=== PATIENT | male | born 1955 | race Caucasian/White ===

== ENCOUNTER → 2018-08-01 | Outpatient (CLI) | payer BC ==
[~2018-08-01] MED LIST: FLUT16SP22 NS; MICARDIS; MMT17NA NS; PRD20T PO
--- NOTE | 2018-08-01 14:51 | Diagnostic Imaging Report ---
CLINICAL INDICATION: Patient has trouble breathing and on right side has polyp. EXAM: Axial CT scan of the maxillofacial structures without IV contrast. Coronal reformations were performed. COMPARISON: None. FINDINGS: PARANASAL SINUSES: There is mild amorphous high-density material within the left maxillary sinus. FRONTAL: There is near-complete consolidation of the frontal sinus and obstruction of the frontal recess regions. ETHMOID: There is a large amount of patchy consolidation and mucosal thickening involving the ethmoid sinus (left side more than the right). MAXILLARY: There is consolidation of both maxillary sinuses. SPHENOID: There is near-complete consolidation of the sphenoid sinus. OTHER PARANASAL SINUS FINDINGS: There is a large amount of lobulated mucosal thickening and near-complete consolidation of the right nasal cavity. There is a large amount of lobulated mucosal thickening in the left nasal cavity. There is polypoid-like mucosal thickening seen in the nasal cavity bilaterally with a small polypoid area extending anteriorly within the right nostril. NASAL SEPTUM: There is mild rightward nasal septal deviation. VISUALIZED TEMPORAL BONE STRUCTURES: Unremarkable. BONY STRUCTURES: There is chronic bony thickening/sclerosis involving all of the paranasal sinus bony prabhakar. There are postop changes versus bony expansile changes of the bilateral medial maxillary wall regions. EXTRACRANIAL SOFT TISSUE/ ORBITS: Unremarkable. IMPRESSION: 1: There is severe diffuse paranasal sinus disease with consolidation and polypoid-like mucosal thickening. There is high-density material within the left maxillary sinus, which may be related to inspissated secretions or fungal elements. These findings may be related to sinonasal polyposis. 2: There is mild rightward nasal septal deviation. Dictated by: Dictated on workstation # [id number]
== END ==
LOC: RAD 14:11
PROVIDERS: ATTEND Otolaryngology Otolaryngology/Facial Plastic Surgery
DX: J33.9 Nasal polyp, unspecified (principal); J32.9 Chronic sinusitis, unspecified; J34.2 Deviated nasal septum
CPT/HCPCS: 70486

== ENCOUNTER 2018-08-18 06:39 | Outpatient (CLI) | payer BC ==
[~2018-08-18] VITALS: Ht 175.3 cm; Wt 90.3 kg
[2018-08-18] MEDS ORDERED: LOSA100T57 PO (14:20)
== END 2018-08-18 14:22 | disposition home or self-care (01) ==
LOC: PREOP 06:39
PROVIDERS: ATTEND Otolaryngology Otolaryngology/Facial Plastic Surgery
DX: Z01.818 Encounter for other preprocedural examination (principal)

== ENCOUNTER 2018-09-11 06:25 | Day surgery (SDC) | payer BC ==
[~2018-09-11] VITALS: Ht 175.3 cm; Wt 90.3 kg
[~2018-09-11 06:25] MED LIST changes: +LOSA100T57 PO
[2018-09-11] MEDS ORDERED: COCAINE HCL 4% 2 ML SYR ONE (06:54)
[2018-09-11] MEDS ORDERED: PHENYLEPHRINE 0.5% NASAL SPR (NEO-SYNEPHRINE) REG ONE (06:54)
[2018-09-11] MEDS ORDERED: LIDOCAINE/EPI 1%-1:100,000 (XYLOCAINE) 20ML ONE (06:54)
[2018-09-11] MEDS ORDERED: BSS 15 ML ONE (06:54)
[2018-09-11] MEDS ORDERED: fentaNYL INJECTION 100 MCG/2 ML AMP ONE ×2 (06:58→08:07)
[2018-09-11] MEDS ORDERED: ROCURONIUM 10 MG/ML 5 ML SYRINGE IV ONE (06:58)
[2018-09-11] MEDS ORDERED: proPOfol 200 MG/20 ML (DIPRIVAN) VIAL IV ONE (06:58)
[2018-09-11] MEDS ORDERED: SUCCINYLCHOLINE INJ 100 MG/5 ML SYR ONE (06:58)
[2018-09-11] MEDS ORDERED: ONDANSETRON 4 MG/2 ML (SDV) Z0FRAN ONE (06:58)
[2018-09-11] MEDS ORDERED: LIDOCAINE PF 2% 5 ML (XYLOCAINE) VIAL ONE ×2 (06:58→08:06)
[2018-09-11] MEDS ORDERED: MIDAZOLAM 2 MG/2 ML (VERSED) VIAL ONE (06:58)
[2018-09-11 07:00] VITALS: BP 134/82
[2018-09-11] MEDS: LACTATED RINGERS 1,000 ML IV PRN ×3 (07:00→09:55)
--- NOTE | 2018-09-11 07:04 | Progress Note-Pre Operative ---
Pre-Operative Progress Note H&P Reviewed The H&P was reviewed, patient examined and no changes noted. Date Seen by Provider: Sep 11, 2018 Time Seen by Provider: 06:30 Date H&P Reviewed: Sep 11, 2018 Time H&P Reviewed: 06:30 Pre-Operative Diagnosis: Bilat Chronic Sinusitis with Nasal Polyps, Bilat Hyper of Inf Turbs DIONNE NEVAREZ MD Sep 11, 2018 07:04
[2018-09-11] MEDS ORDERED: HYDROCORTISONE 100 MG/2 ML (Solu-CORTEF) VIAL ONE (07:13)
[2018-09-11] MEDS ORDERED: HYDROCORTISONE 100 MG/2 ML (Solu-CORTEF) VIAL IV ONE (07:15)
[2018-09-11] MEDS ORDERED: FAMOTIDINE 20MG/2ML IV (PEPCID) ONE (07:15)
[2018-09-11] MEDS ORDERED: AMPICILLIN/SULBACTAM INJECTION 1.5 GM in NS (IVPB) 100 ML IV ONE (07:15)
[2018-09-11 07:16] LABS: BASOPHILS % (AUTO) 0 % (0-10); EOSINOPHILS # (AUTO) 0.1 10^3/uL (0.0-0.3); EOSINOPHILS % (AUTO) 2 % (0-10); HEMATOCRIT 42 % (40-54); HEMOGLOBIN 14.9 G/DL (13.3-17.7); LYMPHOCYTES % (AUTO) 29 % (12-44); MEAN CORPUSCULAR HEMOGLOBIN 30 PG (25-34); MEAN CORPUSCULAR HGB CONC 35 G/DL (32-36); MEAN CORPUSCULAR VOLUME 86 FL (80-99); MEAN PLATELET VOLUME 8.6 FL (7.4-10.4); MONOCYTES # (AUTO) 0.6 X 10^3 (0.0-1.0); MONOCYTES % (AUTO) 8 % (0-12); NEUTROPHILS # (AUTO) 4.1 X 10^3 (1.8-7.8); NEUTROPHILS % (AUTO) 61 % (42-75); PLATELET COUNT 364 10^3/uL (130-400); WHITE BLOOD COUNT 6.8 10^3/uL (4.3-11.0)
[2018-09-11] MEDS ORDERED: FAMOTIDINE 20MG/2ML IV (PEPCID) IV ONE (07:30)
[2018-09-11 07:32] LABS: BUN/CREATININE RATIO 23; CALCIUM 9.1 MG/DL (8.5-10.1); CARBON DIOXIDE 21 MMOL/L (21-32); CHLORIDE 104 MMOL/L (98-107); CREATININE SERUM 0.87 MG/DL (0.60-1.30); GFR ESTIMATED > 60; GLUCOSE 97 MG/DL (70-105); POTASSIUM 3.8 MMOL/L (3.6-5.0); SODIUM 136 MMOL/L (135-145)
[2018-09-11] MEDS ORDERED: ONDANSETRON 4 MG/2 ML (SDV) Z0FRAN IVP PRN (07:45)
[2018-09-11] MEDS ORDERED: morphine INJ 10 MG/ML 1ML (SYR OR VIAL) IVP ONE (07:45)
[2018-09-11] MEDS ORDERED: MEPERIDINE (DEMEROL) INJ 50 MG/ML IVP ONE (07:45)
[2018-09-11] MEDS ORDERED: LACTATED RINGERS 1,000 ML IV PRN (07:53)
[2018-09-11] MEDS ORDERED: SEVOFLURANE (ULTANE) 15 ML INHAL SOLN ONE (07:59)
[2018-09-11] MEDS ORDERED: NEOSTIGMINE 1 MG/ML 5 ML SYRINGE ONE (08:06)
[2018-09-11] MEDS ORDERED: GLYCOPYRROLATE 0.2 MG/ML (ROBINUL) 2 ML VIAL ONE (08:06)
[2018-09-11] MEDS ORDERED: D5 1/2 NS W/KCL 20 MEQ/L 1,000 ML IV SCH (09:08)
--- NOTE | 2018-09-11 09:08 | Progress Note-Post Operative ---
Post-Operative Progess Note Surgeon (s)/Sound Recordist (s) Surgeon DIONNE NEVAREZ MD Sound Recordist: none Pre-Operative Diagnosis Bilat Chronic Sinusitis with Nasal Polyps, Bilat Hyper of Inf Turbs Post-Operative Diagnosis same Procedure & Operative Findings Date of Procedure 09/11/18 Procedure Performed/Findings Bilat ESS, Bilat REd of Inf Turbs Anesthesia Type get Estimated Blood Loss Estimated blood loss (mL): 200 Specimens/Packing Specimens Removed Bialt nasal polyps chornic sinusitis Packing: DIONNE Moran MD Sep 11, 2018 09:08
[2018-09-11] MEDS ORDERED: PROMETHAZINE INJ 25 MG/ML (PHENERGAN) AMP IVP PRN (09:15)
[2018-09-11] MEDS ORDERED: predniSONE 20 MG TAB PO ONE (09:15)
[2018-09-11] MEDS ORDERED: HYDROcodone/APAP 5 MG/325 MG (LORTAB) TAB PO PRN (09:15)
[2018-09-11] MEDS ORDERED: ACETAMINOPHEN 325 MG TABLET PO PRN (09:15)
[2018-09-11 10:00] VITALS: BP 151/90
[2018-09-11 10:30] VITALS: BP 150/81
[2018-09-11 11:00] VITALS: BP 153/87
[2018-09-11] MEDS ORDERED: predniSONE 20 MG TAB ONE (11:36)
[2018-09-11 12:00] VITALS: BP 153/87
[2018-09-11 12:40] VITALS: BP 153/87
--- NOTE | 2018-09-11 13:16 | Anesthesia-General Post-Op ---
General Patient Condition Mental Status/LOC: Same as Preop Cardiovascular: Satisfactory Nausea/Vomiting: Absent Respiratory: Satisfactory Pain: Controlled Complications: Absent Post Op Complications Complications None Follow Up Care/Instructions Patient Instructions None needed. Anesthesia/Patient Condition Patient Condition Patient is doing well, no complaints, stable vital signs, no apparent adverse anesthesia problems. No complications reported per nursing. ONESIMO CHESTER CRNA Sep 11, 2018 13:16
== END 2018-09-11 12:40 | disposition home or self-care (01) ==
LOC: SDC 06:25
PROVIDERS: ATTEND Otolaryngology Otolaryngology/Facial Plastic Surgery
DX: J32.2 Chronic ethmoidal sinusitis (principal); J32.0 Chronic maxillary sinusitis; J32.3 Chronic sphenoidal sinusitis; J32.1 Chronic frontal sinusitis; J34.3 Hypertrophy of nasal turbinates; I10 Essential (primary) hypertension; J45.909 Unspecified asthma, uncomplicated; K21.9 Gastro-esophageal reflux disease without esophagitis; K44.9 Diaphragmatic hernia without obstruction or gangrene; Z79.899 Other long term (current) drug therapy
CPT/HCPCS: 36415; 80048; 85025; 87081; 88305; 93005

== ENCOUNTER → 2019-08-04 | Outpatient (CLI) | payer BC ==
--- NOTE | 2019-08-04 15:44 | Diagnostic Imaging Report ---
PROCEDURE: MRI right joint upper extremity without contrast. TECHNIQUE: Multiplanar, multisequence non contrast-enhanced MRI of the right upper extremity was accomplished. INDICATION: Right shoulder injury lifting and pulling in May 2019. COMPARISON: None. FINDINGS: No acute fracture or dislocation is seen in the right shoulder. Alignment appears normal. There is no joint effusion. The supraspinatus tendon demonstrates a small low-grade partial-thickness tear at the footplate anteriorly. There is a high-grade partial-thickness tear at the footplate of the posterior supraspinatus and anterior infraspinatus tendons, measuring 2 cm in width. The teres minor tendon appears intact. The subscapularis tendon appears intact. The long head of the biceps tendon is normal in course and signal. The glenoid labrum is suboptimally evaluated in the absence of intra-articular contrast, but no paralabral cyst is seen. The acromion has a curved undersurface without hooking. The coracoclavicular and coracoacromial ligaments are intact. There are moderate degenerative changes at the acromioclavicular joint. No muscular atrophy is seen. The soft tissues about the right shoulder are otherwise unremarkable. IMPRESSION: 1. Moderate-sized high-grade partial-thickness tear at the footplate of the supraspinatus and infraspinatus tendons. There is no muscular atrophy seen. Dictated by: Dictated on workstation # [id number]
== END ==
LOC: RAD 13:09
PROVIDERS: ATTEND Family Medicine
DX: S46.811A Strain of other muscles, fascia and tendons at shoulder and upper arm level, right arm, initial encounter (principal); X50.0XXA Overexertion from strenuous movement or load, initial encounter
CPT/HCPCS: 73221

== ENCOUNTER 2020-10-16 18:34 | Emergency (ER) | payer BC ==
[~2020-10-16] VITALS: Ht 175 cm; Wt 90.0 kg
--- NOTE | 2020-10-16 18:55 | ED General ---
General Stated Complaint: SOB/O2 DOWN TO 92 Source of Information: Patient Exam Limitations: No Limitations History of Present Illness Date Seen by Provider: Oct 16, 2020 Time Seen by Provider: 18:53 Initial Comments To ER with reports of shortness of breath. This is been ongoing since August. He denies any known cause. He has been following with Dr. Francisco. He was tested for Covid which was negative he was also tested for influenza which came back positive for influenza A. Despite that he has had progressive decline in his oxygen saturation down at about 91 to 92% at home. He states that he has quite a bit of wheezing. He states that anytime he eats it seems to pool in his chest and then once he lays flat it comes back up into his throat. He thinks he might be aspirating. He has an appointment with Dr. Guerrero from surgery scheduled 48 hours from now. He denies any fevers or chills. Timing/Duration: Other (2 months) Severity: Moderate Associated Systoms: Cough, Shortness of Air Allergies and Home Medications Allergies Coded Allergies: No Known Drug Allergies (Unverified , 08/31/11) Home Medications Losartan Potassium 100 Mg Tablet, 100 MG PO DAILY, (Reported) Patient Home Medication List Home Medication List Reviewed: Yes Review of Systems Review of Systems Constitutional: see HPI EENTM: see HPI Respiratory: see HPI, cough, short of breath, wheezing Cardiovascular: see HPI; No chest pain Genitourinary: no symptoms reported Musculoskeletal: no symptoms reported Skin: no symptoms reported Psychiatric/Neurological: No Symptoms Reported Hematologic/Lymphatic: No Symptoms Reported Immunological/Allergic: no symptoms reported Past Izycdtq-Xwugnn-Jiwyju Hx Patient Social History 2nd Hand Smoke Exposure: No Recent Hopitalizations: No Seasonal Allergies Seasonal Allergies: Yes Past Medical History Surgeries: Yes (sinus sx, arm bicep sx, hemorrhoidectomy, ) Respiratory: Yes Asthma Cardiac: Yes Hypertension Neurological: No Reproductive Disorders: No Genitourinary: No Gastrointestinal: Yes Gastroesophageal Reflux, Hemorrhoids, Hiatal Hernia 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 0.0oz. [id number]; 29.4 BMI Method: General Appearance: No Apparent Distress, WD/WN Eyes: Bilateral Eye Normal Inspection, Bilateral Eye PERRL, Bilateral Eye EOMI HEENT: PERRL/EOMI, TMs Normal Neck: Full Range of Motion, Normal Inspection Respiratory: No Accessory Muscle Use, No Respiratory Distress, Wheezing (Inspiratory and expiratory on the right) Cardiovascular: Regular Rate, Rhythm, Normal Peripheral Pulses Gastrointestinal: Non Tender, Soft Extremity: Normal Capillary Refill, Normal Inspection Neurologic/Psychiatric: Alert, Oriented x3 Skin: Normal Color, Warm/Dry Progress/Results/Core Measures Suspected Sepsis SIRS Temperature: Pulse: Respiratory Rate: Laboratory Tests 10/16/20 18:45: White Blood Count 7.8 Blood Pressure / Mean: Laboratory Tests 10/16/20 18:45: Creatinine 1.03, INR Comment 1.0, Platelet Count 324, Total Bilirubin 0.8 Results/Orders Lab Results Laboratory Tests Test 10/16/20 18:45 Range/Units White Blood Count 7.8 4.3-11.0 10^3/uL Red Blood Count 5.26 4.30-5.52 10^6/uL Hemoglobin 15.8 13.3-17.7 g/dL Hematocrit 45 40-54 % Mean Corpuscular Volume 86 80-99 fL Mean Corpuscular Hemoglobin 30 25-34 pg Mean Corpuscular Hemoglobin Concent 35 32-36 g/dL Red Cell Distribution Width 12.7 10.0-14.5 % Platelet Count 324 130-400 10^3/uL Mean Platelet Volume 8.5 L 9.0-12.2 fL Immature Granulocyte % (Auto) 0 % Neutrophils (%) (Auto) 48 42-75 % Lymphocytes (%) (Auto) 27 12-44 % Monocytes (%) (Auto) 7 0-12 % Eosinophils (%) (Auto) 17 H 0-10 % Basophils (%) (Auto) 2 0-10 % Neutrophils # (Auto) 3.7 1.8-7.8 10^3/uL Lymphocytes # (Auto) 2.1 1.0-4.0 10^3/uL Monocytes # (Auto) 0.5 0.0-1.0 10^3/uL Eosinophils # (Auto) 1.3 H 0.0-0.3 10^3/uL Basophils # (Auto) 0.1 0.0-0.1 10^3/uL Immature Granulocyte # (Auto) 0.0 0.0-0.1 10^3/uL Neutrophils % (Manual) 47 % Lymphocytes % (Manual) 30 % Monocytes % (Manual) 5 % Eosinophils % (Manual) 16 % Basophils % (Manual) 2 % Band Neutrophils 0 % Blood Morphology Comment NORMAL Prothrombin Time 13.4 12.2-14.7 SEC INR Comment 1.0 0.8-1.4 D-Dimer < 0.27 0.00-0.49 UG/ML Sodium Level 139 135-145 MMOL/L Potassium Level 4.0 3.6-5.0 MMOL/L Chloride Level 104 98-107 MMOL/L Carbon Dioxide Level 22 21-32 MMOL/L Anion Gap 13 5-14 MMOL/L Blood Urea Nitrogen 14 7-18 MG/DL Creatinine 1.03 0.60-1.30 MG/DL Estimat Glomerular Filtration Rate > 60 BUN/Creatinine Ratio 14 Glucose Level 106 H 70-105 MG/DL Calcium Level 9.1 8.5-10.1 MG/DL Corrected Calcium 8.5-10.1 MG/DL Magnesium Level 2.2 1.6-2.4 MG/DL Total Bilirubin 0.8 0.1-1.0 MG/DL Aspartate Amino Transf (AST/SGOT) 25 5-34 U/L Alanine Aminotransferase (ALT/SGPT) 29 0-55 U/L Alkaline Phosphatase 91 40-136 U/L Troponin I < 0.028 <0.028 NG/ML C-Reactive Protein High Sensitivity 1.03 H 0.00-0.50 MG/DL B-Type Natriuretic Peptide 17.5 <100.0 PG/ML Total Protein 7.6 6.4-8.2 GM/DL Albumin 4.7 H 3.2-4.5 GM/DL Procalcitonin 0.03 <0.10 NG/ML Coronavirus 2018 ([facility]) Negative Negative My Orders Orders - BING VALERO ORDER CHECKER Albuterol/Ipra Inhalation Soln (Duoneb I (10/16/20 19:00) Svn Small Volume Nebulizer (10/16/20 18:50) Ct Chest W (10/16/20 19:32) Iohexol Injection (Omnipaque 350 Mg/Ml 1 (10/16/20 19:45) Received Contrast (Hold Metformin- Contr (10/16/20 19:45) Sodium Chloride Flush (Catheter Flush Sy (10/16/20 19:45) Ns (Ivpb) (Sodium Chloride 0.9% Ivpb Bag (10/16/20 19:45) Ketorolac Injection (Toradol Injection) (10/16/20 20:30) Albuterol/Ipra Inhalation Soln (Duoneb I (10/16/20 20:30) Svn Small Volume Nebulizer (10/16/20 20:24) Medications Given in ED Current Medications Medications Dose Ordered Sig/Eliu Route Start Time Stop Time Status Last Admin Dose Admin Albuterol/ Ipratropium 3 ml ONCE ONCE INH 10/16/20 19:00 10/16/20 19:01 DC 10/16/20 19:14 3 ML Iohexol 100 ml ONCE ONCE IV 10/16/20 19:45 10/16/20 19:46 DC 10/16/20 19:55 74 ML Sodium Chloride 100 ml ONCE ONCE IV 10/16/20 19:45 10/16/20 19:46 DC 10/16/20 19:55 80 ML Vital Signs/I&O 10/16/20 18:40 Temp 37.0 Pulse 87 B/P (MAP) 153/85 (107) Pulse Ox 91 O2 Delivery Room Air Capillary Refill : Diagnostic Imaging Diagonstic Imaging: CT Comments NAME: HAWA WHEAT [employer] REC#: [id number] PT STATUS: REG ER : 1955 PHYSICIAN: IBNG VALERO APRN ADMIT DATE: 10/16/20/ER Signed Date of Exam:10/16/[address] chest w TECHNIQUE: Multiple contiguous axial images were obtained through the chest with the use of intravenous contrast. All CT scans use one or more of the following dose optimizing techniques: automated exposure control, MA and/or KvP adjustment based on patient size and exam type or iterative reconstruction. INDICATION: Shortness of air and cough. COMPARISON: None available. FINDINGS: Lungs and airway: No endoluminal nodule within the trachea. There are a few nodules along the left major fissure measuring between 3-6 mm which have a configuration and position that favors benign intrapulmonary lymph nodes. No concerning pulmonary mass or nodule. No consolidation. Pleura: No pleural effusion or pneumothorax. Heart and mediastinum: Thyroid is normal. No supraclavicular or axillary lymphadenopathy. No mediastinal, hilar or juxtaphrenic lymphadenopathy. Heart is normal in size without pericardial effusion. No hiatal hernia. Normal caliber thoracic aorta without dissection. Upper abdomen: No acute abnormality in the upper abdomen. Musculoskeletal: No concerning focal osseous lesions. IMPRESSION: 1. No acute cardiopulmonary process. Specifically, there are no features of pneumonia. 2. No hiatal hernia. Dictated by: Dictated on workstation # [id number] Dict: 10/16/202009 Trans: 10/16/202016 PJE [id number] Interpreted by: DEZ TREVIZO MD Electronically signed by: DEZ TREVIZO MD 10/16/202016 Departure Communication (Admissions) 2026-labs are unremarkable. Oxygen has been 91 to 94% throughout his ER stay. This is on room air. The first DuoNeb treatment did help significantly to reduce the wheezing. I will give a second dose. He is convinced that his symptoms are from acid reflux causing a pneumonitis from aspiration at night. Certainly possible. Again he sees Dr. Guerrero in 48 hours. I will discharged home with a nebulizer and a short supply of bronchodilator. He already has Protonix and Carafate which he should continue taking. He should sleep with the head of his bed up. Impression Primary Impression: Acid reflux disease Additional Impression: Wheezing Disposition: 01 HOME, SELF-CARE Condition: Improved Departure-Patient Inst. Decision time for Depature: 20:30 Referrals: VELIA FRANCISCO MD (PCP/Family) Primary Care Physician Patient Instructions: Acid Reflux, Adult and Adolescent ED, Wheezing Add. Discharge Instructions: 1. You can use the inhaler every 4 hours as needed for wheezing. It would be best to sleep semiupright such as in a recliner or with several pillows behind you. Continue the pantoprazole and sucralfate. Copy Copies To 1: JUSTO GUERRERO MD; VELIA FRANCISCO MD, PETER J APRN Oct 16, 2020 18:55
[2020-10-16 18:57] LABS: BASOPHILS # (AUTO) 0.1 10^3/uL (0.0-0.1); BASOPHILS % (AUTO) 2 % (0-10); EOSINOPHILS # (AUTO) 1.3 10^3/uL (0.0-0.3); EOSINOPHILS % (AUTO) 17 % (0-10); HEMATOCRIT 45 % (40-54); HEMOGLOBIN 15.8 g/dL (13.3-17.7); LYMPHOCYTES # (AUTO) 2.1 10^3/uL (1.0-4.0); LYMPHOCYTES % (AUTO) 27 % (12-44); MEAN CORPUSCULAR HEMOGLOBIN 30 pg (25-34); MEAN CORPUSCULAR HGB CONC 35 g/dL (32-36); MEAN CORPUSCULAR VOLUME 86 fL (80-99); MEAN PLATELET VOLUME 8.5 fL (9.0-12.2); MONOCYTES # (AUTO) 0.5 10^3/uL (0.0-1.0); MONOCYTES % (AUTO) 7 % (0-12); NEUTROPHILS # (AUTO) 3.7 10^3/uL (1.8-7.8); NEUTROPHILS % (AUTO) 48 % (42-75); PLATELET COUNT 324 10^3/uL (130-400); WHITE BLOOD COUNT 7.8 10^3/uL (4.3-11.0)
[2020-10-16] MEDS ORDERED: RT-ALBUTEROL/IPRATROPIUM 3 ML (DUONEB) VIAL INH ONE ×2 (19:00→20:30)
[2020-10-16 19:14] LABS: BAND NEUTROPHILS 0 %; BASOPHILS % (MANUAL) 2 %; EOSINOPHILS % (MANUAL) 16 %; LYMPHOCYTES % (MANUAL) 30 %; MONOCYTES % (MANUAL) 5 %; NEUTROPHILS % (MANUAL) 47 %; RBC MORPH NORMAL
[2020-10-16 19:29] LABS: PROTHROMBIN TIME PATIENT 13.4 SEC (12.2-14.7)
[2020-10-16 19:30] LABS: FIBRIN DEGRADATION PRODUCTS < 0.27 UG/ML (0.00-0.49)
[2020-10-16 19:37] LABS: ALANINE AMINOTRANSFERASE 29 U/L (0-55); ALBUMIN 4.7 GM/DL (3.2-4.5); ALKALINE PHOSPHATASE 91 U/L (40-136); BILIRUBIN,TOTAL 0.8 MG/DL (0.1-1.0); BUN/CREATININE RATIO 14; CALCIUM 9.1 MG/DL (8.5-10.1); CARBON DIOXIDE 22 MMOL/L (21-32); CHLORIDE 104 MMOL/L (98-107); CREATININE SERUM 1.03 MG/DL (0.60-1.30); GFR ESTIMATED > 60; GLUCOSE 106 MG/DL (70-105); MAGNESIUM 2.2 MG/DL (1.6-2.4); SODIUM 139 MMOL/L (135-145); TOTAL PROTEIN 7.6 GM/DL (6.4-8.2)
[2020-10-16] MEDS ORDERED: IOHEXOL 350 MG/ML 100 ML (OMNIPAQUE 350) VIAL IV ONE (19:45)
[2020-10-16] MEDS ORDERED: CATHETER FLUSH 10 ML SYR IV PRN (19:45)
[2020-10-16] MEDS ORDERED: NS 100 ML (IVPB) BAG IV ONE (19:45)
[2020-10-16] MEDS ORDERED: HOLD METFORMIN - RECEIVED CONTRAST 20 ML VIAL IV SCH (19:45)
--- NOTE | 2020-10-16 20:19 | Diagnostic Imaging Report ---
CT chest w TECHNIQUE: Multiple contiguous axial images were obtained through the chest with the use of intravenous contrast. All CT scans use one or more of the following dose optimizing techniques: automated exposure control, MA and/or KvP adjustment based on patient size and exam type or iterative reconstruction. INDICATION: Shortness of air and cough. COMPARISON: None available. FINDINGS: Lungs and airway: No endoluminal nodule within the trachea. There are a few nodules along the left major fissure measuring between 3-6 mm which have a configuration and position that favors benign intrapulmonary lymph nodes. No concerning pulmonary mass or nodule. No consolidation. Pleura: No pleural effusion or pneumothorax. Heart and mediastinum: Thyroid is normal. No supraclavicular or axillary lymphadenopathy. No mediastinal, hilar or juxtaphrenic lymphadenopathy. Heart is normal in size without pericardial effusion. No hiatal hernia. Normal caliber thoracic aorta without dissection. Upper abdomen: No acute abnormality in the upper abdomen. Musculoskeletal: No concerning focal osseous lesions. IMPRESSION: 1. No acute cardiopulmonary process. Specifically, there are no features of pneumonia. 2. No hiatal hernia. Dictated by: Dictated on workstation # [id number]
[2020-10-16] MEDS ORDERED: KETOROLAC 30 MG/ML VIAL IVP ONE (20:30)
[2020-10-16] MEDS ORDERED: RX-ALBUTEROL NEB 2.5 MG/3 ML PACK #5 IH STA (20:34)
[2020-10-16] MEDS ORDERED: LIDOCAINE 2% VISCOUS 15 ML UDC PO ONE (20:45)
[2020-10-16] MEDS ORDERED: METOCLOPRAMIDE INJ 10 MG/2 ML (REGLAN) IVP ONE (20:45)
[2020-10-16] MEDS ORDERED: ANTACID SUSP 30 ML UDC (MYLANTA) PO ONE (20:45)
[2020-10-16 21:00] VITALS: BP 142/89
== END 2020-10-16 21:05 | disposition home or self-care (01) ==
LOC: EDUNIT# 18:34 → ER 18:36
DX: K21.9 Gastro-esophageal reflux disease without esophagitis (principal); J45.909 Unspecified asthma, uncomplicated; Z20.822 Contact with and (suspected) exposure to COVID-19
CPT/HCPCS: 71260; 80053; 83735; 83880; 84145; 84484; 85007; 85027; 85379; 85610; 86141; 93005; 93041; 99284; U0002; 36415; 87635

== ENCOUNTER 2020-10-19 09:46 | Outpatient (RCR) | payer BC ==
[~2020-10-19] VITALS: Ht 175.3 cm; Wt 88.5 kg
[2020-10-19] MEDS ORDERED: METO5TAB75 PO (09:55)
[2020-10-19] MEDS ORDERED: SUCR1TAB PO (09:55)
[2020-10-19] MEDS ORDERED: PANT40TA52 PO (09:55)
== END 2020-10-19 10:46 | disposition home or self-care (01) ==
LOC: PREOP 09:46
PROVIDERS: ATTEND Surgery
DX: Z01.812 Encounter for preprocedural laboratory examination (principal); K21.9 Gastro-esophageal reflux disease without esophagitis

== ENCOUNTER 2020-10-21 09:55 | Observation (INO) | payer BC ==
[~2020-10-21] VITALS: Ht 175 cm; Wt 88.0 kg
[2020-10-21] VITALS (8 sets, daily range): BP systolic 112–158; BP diastolic 63–89
[~2020-10-21 09:55] MED LIST changes: +LACTATED RINGERS 1,000 ML IV ONE; +METO5TAB75 PO; +PANT40TA52 PO; +SUCR1TAB PO
[2020-10-21] MEDS ORDERED: LACTATED RINGERS 1,000 ML IV STA (09:57)
[2020-10-21] MEDS ORDERED: HURRICAINE EXT TUBE (BENZOCAINE) XX PRN (10:00)
[2020-10-21] MEDS ORDERED: LIDOCAINE JELLY 2% 6 ML SYRINGE MM PRN (10:00)
--- NOTE | 2020-10-21 10:04 | Progress Note-Pre Operative ---
Pre-Operative Progress Note H&P Reviewed The H&P was reviewed, patient examined and no changes noted. Date Seen by Provider: Oct 21, 2020 Time Seen by Provider: 10:00 Date H&P Reviewed: Oct 21, 2020 Time H&P Reviewed: 10:00 Pre-Operative Diagnosis: GERD, dysphagia JUSTO PARKER MD Oct 21, 2020 10:04
--- NOTE | 2020-10-21 10:05 | Discharge Inst-Surgical ---
D/C Lap Instructions-ELENA Follow Up Appt in 2 weeks Activity as tolerated High Fiber Diet 25g or more per day Avoid Alcohol, Caffeine, Spicy Page and Acid foods. Drink 64 fluid oz or more of fluids per day. Symptoms to Report: Fever over 101 degree F, Nausea/Vomiting If any problems/questions: Contact your physician or go to Emergency Room JUSTO PARKER MD Oct 21, 2020 10:05
[2020-10-21] MEDS ORDERED: morphine INJ 10 MG/ML 1ML (SYR OR VIAL) IVP PRN ×2 (10:15)
[2020-10-21] MEDS ORDERED: ONDANSETRON 4 MG/2 ML (SDV) Z0FRAN IVP PRN (10:15)
[2020-10-21] MEDS ORDERED: proPOfol 200 MG/20 ML (DIPRIVAN) VIAL IV ONE (10:31)
[2020-10-21] MEDS ORDERED: MIDAZOLAM 2 MG/2 ML (VERSED) VIAL ONE (10:32)
[2020-10-21] MEDS ORDERED: LIDOCAINE JELLY 2% 6 ML SYRINGE ONE (11:56)
[2020-10-21] MEDS ORDERED: HURRICAINE EXT TUBE (BENZOCAINE) ONE (11:56)
--- NOTE | 2020-10-21 12:39 | Anesthesia-General Post-Op ---
MAC Patient Condition Mental Status/LOC: Same as Preop Cardiovascular: Satisfactory Nausea/Vomiting: Absent Respiratory: Satisfactory Pain: Controlled Complications: Absent Post Op Complications Complications None Follow Up Care/Instructions Patient Instructions None needed. Anesthesiology Discharge Order Discharge Order Patient is doing well, no complaints, stable vital signs, no apparent adverse anesthesia problems. No complications reported per nursing. SANTIAGO REYNAGA CRNA Oct 21, 2020 12:39
[2020-10-21] MEDS: HYDROcodone/APAP 5 MG/325 MG (LORTAB) TAB PO PRN (12:57)
[2020-10-21] MEDS ORDERED: NS IV 1000 ML 1,000 ML IV SCH (13:15)
[2020-10-21 14:02] LABS: ABG BASE EXCESS -0.8 MMOL/L (-2.5-2.5); ABG OXYGEN SATURATION 96 % (94-100); ABG PCO2 40 MMHG (35-45); ABG PH 7.39 (7.37-7.43); ABG PO2 78 MMHG (79-93)
[2020-10-21 14:03] LABS: ALLENS TEST YES-POS; INSPIRED O2 3L; PATIENT TEMP 36.3; VENTILATOR NO
[2020-10-21 14:05] LABS: BASOPHILS # (AUTO) 0.2 10^3/uL (0.0-0.1); BASOPHILS % (AUTO) 2 % (0-10); EOSINOPHILS # (AUTO) 1.7 10^3/uL (0.0-0.3); EOSINOPHILS % (AUTO) 21 % (0-10); HEMATOCRIT 46 % (40-54); HEMOGLOBIN 15.1 g/dL (13.3-17.7); LYMPHOCYTES # (AUTO) 1.2 10^3/uL (1.0-4.0); LYMPHOCYTES % (AUTO) 14 % (12-44); MEAN CORPUSCULAR HEMOGLOBIN 30 pg (25-34); MEAN CORPUSCULAR HGB CONC 33 g/dL (32-36); MEAN CORPUSCULAR VOLUME 91 fL (80-99); MEAN PLATELET VOLUME 8.7 fL (9.0-12.2); MONOCYTES # (AUTO) 0.6 10^3/uL (0.0-1.0); MONOCYTES % (AUTO) 7 % (0-12); NEUTROPHILS # (AUTO) 4.6 10^3/uL (1.8-7.8); NEUTROPHILS % (AUTO) 56 % (42-75); PLATELET COUNT 318 10^3/uL (130-400); WHITE BLOOD COUNT 8.2 10^3/uL (4.3-11.0)
[2020-10-21] MEDS ORDERED: CATHETER FLUSH 10 ML SYR IV PRN (14:15)
[2020-10-21] MEDS ORDERED: fentaNYL INJ 100 MCG/2 ML AMP IV PRN (14:15)
[2020-10-21] MEDS ORDERED: PROMETHAZINE INJ 25 MG/ML (PHENERGAN) AMP IV PRN (14:15)
[2020-10-21 14:21] LABS: ALBUMIN 4.3 GM/DL (3.2-4.5); CHLORIDE 102 MMOL/L (98-107); POTASSIUM 4.3 MMOL/L (3.6-5.0); SODIUM 137 MMOL/L (135-145)
[2020-10-21 14:23] LABS: GLUCOSE 102 MG/DL (70-105)
[2020-10-21 14:24] LABS: TOTAL PROTEIN 6.9 GM/DL (6.4-8.2)
[2020-10-21 14:25] LABS: BILIRUBIN,TOTAL 0.6 MG/DL (0.1-1.0); CARBON DIOXIDE 25 MMOL/L (21-32)
[2020-10-21 14:27] LABS: ALKALINE PHOSPHATASE 96 U/L (40-136); CREATININE SERUM 0.97 MG/DL (0.60-1.30); GFR ESTIMATED > 60
[2020-10-21 14:28] LABS: BUN/CREATININE RATIO 11
[2020-10-21 14:30] LABS: ALANINE AMINOTRANSFERASE 22 U/L (0-55)
[2020-10-21 14:36] LABS: BASOPHILS % (MANUAL) 0 %; EOSINOPHILS % (MANUAL) 20 %; LYMPHOCYTES % (MANUAL) 15 %; MONOCYTES % (MANUAL) 4 %; NEUTROPHILS % (MANUAL) 61 %
[2020-10-21 14:37] LABS: RBC MORPH NORMAL
--- NOTE | 2020-10-21 15:56 | Diagnostic Imaging Report ---
INDICATION: Wheezing. EXAMINATION: PA and lateral chest at 2:57 p.m. FINDINGS: The heart size is within normal limits and stable when compared to 08/31/2011. The lungs are generally clear. There is no evidence for failure, pneumonia or for a pleural effusion to suggest an acute abnormality. The mediastinum is not widened. The osseous structures are intact. In the interval since the prior study, however, healed displaced fractures of the right 6th and 7th ribs have developed. IMPRESSION: 1. There is no evidence for an acute cardiopulmonary abnormality. 2. There has been interval trauma to the right thorax. Dictated by: Dictated on workstation # [id number]
[2020-10-21 17:11] LABS: BILIRUBIN,URINE NEGATIVE (NEGATIVE); CLARITY,URINE CLEAR; COLOR,URINE YELLOW; GLUCOSE, URINE (UA) NEGATIVE (NEGATIVE); KETONES,URINE 1+ (NEGATIVE); LEUKOCYTE ESTERASE ,URINE NEGATIVE (NEGATIVE); NITRITE,URINE NEGATIVE (NEGATIVE); PROTEIN,URINE TRACE (NEGATIVE)
[2020-10-21 17:21] LABS: BACTERIA,URINE NEGATIVE /HPF
[2020-10-21 17:25] LABS: AMPHETAMINE SCREEN, URINE NEGATIVE (NEGATIVE); BARBITURATE SCREEN URINE NEGATIVE (NEGATIVE); BENZODIAZEPINES SCREEN URINE NEGATIVE (NEGATIVE); CANNABINOID SCREEN, URINE NEGATIVE (NEGATIVE); COCAINE SCREEN URINE NEGATIVE (NEGATIVE); METHADONE STAT NEGATIVE (NEGATIVE); METHAMPHETAMINE SCREEN URINE S NEGATIVE (NEGATIVE); OPIATE SCREEN URINE POSITIVE (NEGATIVE); OXYCODONE STAT NEGATIVE (NEGATIVE); PROPOXYPHENE STAT NEGATIVE (NEGATIVE); TRICYCLIC ANTIDEPRESSANTS SCRE NEGATIVE (NEGATIVE)
--- NOTE | 2020-10-21 17:50 | History & Physical-Hospitalist ---
History of Present Illness HPI/Chief Complaint CC: Dyspnea HPI: This is a 64yoWM clinic patient of Dr Francisco who was transferred from endoscopy by Dr Guerrero and admitted for observation following an uncomplicated EGD which revealed a hiatal hernia. He was having such shortness of breath the decision was made to admit him directly to 4th floor. Dr Guerrero reports the hardik ent had an enormous amount of questions and changes in his status the last 6 weeks and worsened to the point he could no longer function. I did speak to Dr Francisco the patient's PCP before seeing the patient also. Patient reports he had Flu A 1 month ago and had increasing SOB since that time. He has been sleeping in a recliner with his head almost straight up for the past several weeks. He reports wheezing and has never had this sort of issue before. He is a lifetime non-smoker. Patient has been tested for COVID and it was negative. IgG level was drawn on my admit orders to evaluate for underlying condition and that is pending. CT chest reviewed from ER visit 10/16/20 which revealed no significant abnl. D-dimer was negative so patient was placed on Lovenox 40mg daily. No signs of sepsis. PCT was normal but due to such dyspnea I placed him on broad spectrum abx while w/u in process. 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 His daughter is a nurse out of state. at bedside. No fever. No cough. No hemoptysis. Source: patient, family, RN/MD, old records Date Seen 10/21/20 Time Seen by a Provider: 17:40 Attending Physician Bertha Mae Maxwell MD Referring Physician Date of Admission Oct 21, 2020 at 13:25 Home Medications & Allergies Home Medications Reviewed patient Home Medication Reconciliation performed by pharmacy medication reconciliations order entry technician and/or nursing. Patients Allergies have been reviewed. Allergies Allergies Coded Allergies No Known Drug Allergies (Unverified08/31/11) Patient Social History Marrital Status: Employed/Student: employed (construction and now cheema) Tobacco Use?: No Smoking Status: Never a Smoker Smokeless Tobacco Frequency: Never a User Substance use?: No Alcohol Use?: No Pt stated abuse/neglect: No Immunizations Up To Date Influenza Vaccine Up-to-Date: No; Not Current Current Status Do you have an Advance Directi: No Communicates: Verbally Primary Language: Citizen Of [place] Preferred Spoken Language: Citizen Of [place] Is interpretation needed?: No Past Medical History HTN GERD HH Toxoplasmosis hx Family Medical History Family Hx: HTN Review of Systems Constitutional: see HPI, dizziness, malaise, weakness EENTM: no symptoms reported Respiratory: dyspnea on exertion, orthopnea, short of breath, wheezing Cardiovascular: no symptoms reported Gastrointestinal: no symptoms reported Genitourinary: no symptoms reported Musculoskeletal: no symptoms reported Skin: no symptoms reported Psychiatric/Neurological: Anxiety All Other Systems Reviewed Negative Unless Noted: Yes Physical Exam Physical Exam Vital Signs Vital Signs - First Documented 10/21/20 10/21/20 10:16 12:15 Temp 36.4 Pulse 74 Resp 20 B/P (MAP) 139/89 (106) Pulse Ox 90 O2 Delivery Room Air O2 Flow Rate 8 Capillary Refill : Height, Weight, BMI Height: 5'9.00" Weight: 199lbs. 0.0oz. 90.225020fj; 28.73 BMI Method: General Appearance: Anxious, Mild Distress, Obese Eyes: Right Eye Normal Inspection, Right Eye PERRL HEENT: PERRL/EOMI, Normal ENT Inspection, Pharynx Normal, Moist Mucous Membranes Neck: Full Range of Motion, Normal Inspection, Non Tender Respiratory: Chest Non Tender, Accessory Muscle Use, Crackles, Decreased Breath Sounds, Rales, Rhonci, Wheezing Cardiovascular: No Edema, No Gallop, No JVD, No Murmur, Normal Peripheral Pulses, Tachycardia Gastrointestinal: Normal Bowel Sounds, No Organomegaly, No Pulsatile Mass, Non Tender, Soft Back: Normal Inspection, No CVA Tenderness, No Vertebral Tenderness Extremity: Normal Capillary Refill, Normal Inspection, Normal Range of Motion, Non Tender, No Calf Tenderness, No Pedal Edema Neurologic/Psychiatric: Alert, Oriented x3, No Motor/Sensory Deficits, Normal Mood/Affect, golf ball cover treater II-XII Norm as Tested Skin: Normal Color, Warm/Dry Lymphatic: No Adenopathy Results Results/Procedures Labs Laboratory Tests 10/21/20 13:50 10/22/20 05:02 Patient resulted labs reviewed. Assessment/Plan Admission Diagnosis Assessment: Severe respiratory insufficiency following conscious sedation for EGD Dr Guerrero Progressive dyspnea x 6 weeks with wheezing on exam severe and orthopnea Flu A 1 month ago HTN GERD HH Slight elevation in troponin consulting Dr Zelaya Plan: IV steroids IV abx Lovenox Dr Zelaya and Dr Maddox consultation IgG level for COVID HLIVF Home meds [facility] Admission Status: Observation Diagnosis/Problems Diagnosis/Problems (1) Respiratory insufficiency (2) Dyspnea (3) Pneumonitis (4) Hiatal hernia (5) Wheezing Status: Acute (6) Acid reflux disease Status: Acute BERTHA MAE DO Oct 21, 2020 17:49
[2020-10-21] MEDS ORDERED: PANTOPRAZOLE 40 MG (PROTONIX) TAB PO NR (18:00)
[2020-10-21] MEDS: methylPREDNISolone 125 MG (Solu-MEDROL) VIAL IVP SCH (18:39)
[2020-10-21] MEDS: AZITHROMYCIN INJECTION 250 MG in NS (IVPB) 250 ML IV SCH (18:40)
[2020-10-21] MEDS: CEFEPIME INJECTION 1,000 MG in WATER (STERILE) FOR INJECTION 10 ML IV SCH (18:40)
[2020-10-21] MEDS: RT-ALBUTEROL SULF 2.5 MG/3 ML PRE-MIX VIAL INH SCH ×2 (19:40→22:35)
--- NOTE | 2020-10-21 20:08 | OPERATIVE REPORT ---
DATE OF SERVICE: 10/21/2020 ATTENDING PRIMARY CARE PHYSICIAN: Dr. Aravind Francisco. PREOPERATIVE DIAGNOSES: Cough, wheezing, nocturnal choking, shortness of breath. POSTOPERATIVE DIAGNOSES: Reflux esophagitis between stage 2 to 3, small hiatal hernia approximately 2 cm in size, moderate gastritis. No distal obstructions. PROCEDURE: EGD with biopsy. SURGEON: Justo Parker MD ANESTHESIA: Monitored anesthesia care. ESTIMATED BLOOD LOSS: Minimal. FINDINGS: Reflux esophagitis between stage 2 to 3, small hiatal hernia approximately 2 cm in size, moderate gastritis. No distal obstructions. DISPOSITION: The patient tolerated the procedure well. INDICATIONS: The patient is a 64-year-old male referred over to us for coughing, choking and shortness of breath especially at night. He states that this has been going on for a few months; however, has worsened exponentially. He states that this was so bad that he went to the Emergency Department approximately 5 days ago. He does report that he does have a history of some reflux as well as regurgitation; however, not severe. DESCRIPTION OF PROCEDURE: The patient was brought to the endoscopy suite, laid in the left lateral decubitus position with head slightly elevated. After adequate IV pain and sedative medications and monitored anesthesia care, the mouthpiece was applied. The endoscope was placed in the mouth, visualizing the pharynx and hypopharyngeal region. Vocal cords, epiglottis and vallecula identified and appeared to be normal. The endoscope was then gently intubated. The esophageal opening and esophagus insufflated. The endoscope was then advanced to the first, second and third portion of esophagus at the level of the GE junction, a reflux esophagitis between stage II to III identified. There were no ulcers or strictures identified in this region. A biopsy was taken with forceps with visualization of good hemostasis. The endoscope was advanced in the stomach and endoscope retroflexed, visualizing a small hiatal hernia approximately 2 cm in size. There was a moderate severity gastritis more towards the stomach antrum. No formal ulcerations, polyps, or any neoplasms. A biopsy was taken of the antrum to rule out H. pylori with visualization of good hemostasis. Endoscope was then advanced to the pylorus and the first and second portion of the duodenum, which appeared normal with no distal obstructions. The endoscope was then slowly withdrawn while taking a second look and suctioning of residual air with no additional findings. The patient tolerated the procedure well. However, during the procedure, he did have cardiac arrhythmias including bigeminy and premature atrial contractions. He was also hypertensive with blood pressure 198/86, pulse 94, pulse ox with oxygen mask at 93%. At this time, we are unsure of why he has a significant pulmonary issues; however, at this time, he feels uncomfortable and cannot lay down without shortness of breath and we will proceed with getting a 2-view chest x-ray as well as medical consultation. We will have him continue with Protonix 40 mg daily as well as Carafate for now. Job ID: [id number] DocumentID: [id number] Dictated Date: 10/21/2020 12:23:26 City Council Member Date: 10/21/2020 20:07:07 Dictated By: JUSTO PARKER MD MTDD
[2020-10-21] MEDS: ENOXAPARIN 40 MG/0.4 ML (LOVENOX) SYR SC SCH (20:10)
[2020-10-21] MEDS: MONTELUKAST 10 MG (SINGULAIR) TAB PO SCH (20:10)
[2020-10-21] MEDS: LORATADINE (CLARITIN) 10 MG TAB PO SCH (20:10)
[2020-10-21] MEDS: diphenhydrAMINE 25 MG TAB (BENADRYL) PO SCH (20:10)
[2020-10-21] MEDS: FLUTICASONE NASAL SPRAY (FLONASE) 16 GM BTL NS SCH (22:45)
[2020-10-22] VITALS (7 sets, daily range): BP systolic 103–136; BP diastolic 64–70
[2020-10-22] MEDS: methylPREDNISolone 125 MG (Solu-MEDROL) VIAL IVP SCH ×5 (00:21→23:33)
[2020-10-22] MEDS: CEFEPIME INJECTION 1,000 MG in WATER (STERILE) FOR INJECTION 10 ML IV SCH ×5 (00:21→23:33)
[2020-10-22] MEDS: RT-ALBUTEROL SULF 2.5 MG/3 ML PRE-MIX VIAL INH SCH (02:25)
[2020-10-22 05:49] LABS: BASOPHILS % (AUTO) 0 % (0-10); EOSINOPHILS % (AUTO) 0 % (0-10); HEMATOCRIT 42 % (40-54); LYMPHOCYTES # (AUTO) 0.4 10^3/uL (1.0-4.0); LYMPHOCYTES % (AUTO) 7 % (12-44); MEAN CORPUSCULAR HEMOGLOBIN 30 pg (25-34); MEAN CORPUSCULAR HGB CONC 34 g/dL (32-36); MEAN CORPUSCULAR VOLUME 89 fL (80-99); MEAN PLATELET VOLUME 8.7 fL (9.0-12.2); MONOCYTES # (AUTO) 0.1 10^3/uL (0.0-1.0); MONOCYTES % (AUTO) 1 % (0-12); NEUTROPHILS # (AUTO) 5.5 10^3/uL (1.8-7.8); NEUTROPHILS % (AUTO) 92 % (42-75); PLATELET COUNT 337 10^3/uL (130-400)
--- NOTE | 2020-10-22 06:13 | Pulmonary Consultation ---
History of Present Illness History of Present Illness Date Seen by Provider: Oct 22, 2020 Time Seen by Provider: 06:12 Date of Admission Allergies and Home Medications Allergies Coded Allergies: No Known Drug Allergies (Unverified , 08/31/11) Home Medications Losartan Potassium 100 Mg Tablet, 100 MG PO DAILY, (Reported) Metoclopramide HCl 5 Mg Tablet, 5 MG PO DAILY PRN, (Reported) Pantoprazole Sodium 40 Mg Tablet.dr, 40 MG PO DAILY, (Reported) Sucralfate 1 Gm Tablet, 1 GM PO ACHS, (Reported) Past Npopfwe-Pnquyy-Mvawey Hx Patient Social History Alcohol Use: Rarely Uses Number of Drinks Today: AA Alcohol Beverage of Choice: Beer 2nd Hand Smoke Exposure: No Recent Hopitalizations: No Have you traveled recently?: No Alcohol Use?: No Seasonal Allergies Seasonal Allergies: Yes Past Medical History Surgeries: Yes (sinus sx, arm bicep sx, hemorrhoidectomy, ) Respiratory: Yes Asthma Cardiac: Yes Hypertension Neurological: No Reproductive Disorders: No Genitourinary: No Gastrointestinal: Yes Gastroesophageal Reflux, Hemorrhoids, Hiatal Hernia 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 0.0oz. 90.314972nd; 28.73 BMI Method: Exam Exam Vital Signs Date Time Temp Pulse Resp B/P (MAP) Pulse Ox O2 Delivery O2 Flow Rate FiO2 10/22/20 04:34 36.2 86 20 115/ 93 Room Air 10/22/20 02:25 94 4.00 10/22/20 01:00 106 10/22/20 00:00 36.5 99 18 103/69 (80) 96 Room Air 10/21/20 22:35 95 4.00 10/21/20 20:10 Nasal Cannula 4.00 10/21/20 19:50 95 4.00 10/21/20 19:31 36.6 88 20 137/69 (91) 95 Nasal Cannula 4.50 10/21/20 19:00 93 10/21/20 16:00 36.7 58 18 145/65 (91) 96 Nasal Cannula 4.50 10/21/20 15:13 74 10/21/20 13:20 95 Nasal Cannula 3.00 10/21/20 12:35 36.8 97 24 142/88 92 Room Air 10/21/20 12:30 92 16 92 Room Air 10/21/20 12:25 91 16 92 OxyMask 4 10/21/20 12:20 36.3 73 20 145/67 (93) 95 Nasal Cannula 3.00 10/21/20 12:20 90 16 94 OxyMask 8 10/21/20 12:15 90 16 94 OxyMask 8 10/21/20 11:37 68 93 Room Air 10/21/20 10:16 36.4 74 20 139/89 (106) 90 Room Air I & O 10/22/20 07:00 Intake Total 1600 ml Output Total 0 ml Balance 1600 ml Height & Weight Height: 5'9.00" Weight: 199lbs. 0.0oz. 90.198552zh; 28.73 BMI Method: Results Lab Laboratory Tests 10/21/20 13:50 10/22/20 05:02 Assessment/Plan Assessment/Plan Acute respiratory distress after EGD Acute bronchitis -Solumedrol -Increase Duoneb to Q4 -Out pt testing S/p Influenza 1 month ago NSTEMI -Cardiology following SALVATORE APODACA DO Oct 22, 2020 06:13
[2020-10-22 06:14] LABS: ALANINE AMINOTRANSFERASE 22 U/L (0-55); ALBUMIN 4.1 GM/DL (3.2-4.5); ALKALINE PHOSPHATASE 87 U/L (40-136); BILIRUBIN,TOTAL 0.5 MG/DL (0.1-1.0); BUN/CREATININE RATIO 17; CALCIUM 8.7 MG/DL (8.5-10.1); CARBON DIOXIDE 20 MMOL/L (21-32); CHLORIDE 104 MMOL/L (98-107); CREATININE SERUM 0.88 MG/DL (0.60-1.30); GFR ESTIMATED > 60; GLUCOSE 172 MG/DL (70-105); LYMPHOCYTES % (MANUAL) 9 %; MONOCYTES % (MANUAL) 1 %; NEUTROPHILS % (MANUAL) 90 %; POTASSIUM 3.9 MMOL/L (3.6-5.0); RBC MORPH NORMAL; SODIUM 136 MMOL/L (135-145); TOTAL PROTEIN 6.8 GM/DL (6.4-8.2)
[2020-10-22] MEDS ORDERED: RT-ALBUTEROL/IPRATROPIUM 3 ML (DUONEB) VIAL INH PRN (06:30)
[2020-10-22] MEDS: PANTOPRAZOLE 40 MG (PROTONIX) TAB PO SCH (08:53)
[2020-10-22] MEDS: LORATADINE (CLARITIN) 10 MG TAB PO SCH ×2 (08:53→21:12)
[2020-10-22] MEDS: AZITHROMYCIN INJECTION 250 MG in NS (IVPB) 250 ML IV SCH (08:54)
[2020-10-22] MEDS: FLUTICASONE NASAL SPRAY (FLONASE) 16 GM BTL NS SCH (08:57)
--- NOTE | 2020-10-22 10:14 | Consultation-Cardiology ---
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 For the past 2 months he has been having progressive shortness of breath, orthopnea, feeling that he is choking, denied any pedal edema. No chest pain. No syncope or near syncopal episodes. Underwent endoscopy which showed hiatal hernia, he was noted to have frequent premature ventricular contractions, significant wheezing. On my evaluation he was feeling better, still having active wheezing with cough. No chest pain Home Medications & Allergies Allergies: Coded Allergies: No Known Drug Allergies (Unverified , 08/31/11) Home Medication List Reviewed: Yes MNO-Pfrvso-Wwzgyd Hx Patient Social History Marital Status: Employed/Student: employed Recreational Drug Use: No 2nd Hand Smoke Exposure: No Recent Hopitalizations: No Have you traveled recently?: No Alcohol Use?: No Past Medical History Discussed below Family Medical History Family Medical Hx Noncontributory Review of Systems-General Review of Systems Constitutional: no symptoms reported, see HPI, malaise EENTM: see HPI, no symptoms reported Respiratory: see HPI, cough, dyspnea on exertion; No hemoptysis; orthopnea; No phlegm, No short of breath, No stridor; wheezing; No other Cardiovascular: see HPI; No chest pain, No edema, No Hx of Intervention, No palpitations, No syncope, No vascular heart diseas, No other Gastrointestinal: no symptoms reported, see HPI Genitourinary: no symptoms reported, see HPI Musculoskeletal: no symptoms reported, see HPI Skin: no symptoms reported, see HPI Psychiatric/Neurological: No Symptoms Reported, See HPI Reviewed Test Results Reviewed Test Results Lab Laboratory Tests Test 10/21/20 13:50 10/21/20 13:55 10/21/20 17:00 10/21/20 17:29 Range/Units White Blood Count 8.2 4.3-11.0 10^3/uL Red Blood Count 5.05 4.30-5.52 10^6/uL Hemoglobin 15.1 13.3-17.7 g/dL Hematocrit 46 40-54 % Mean Corpuscular Volume 91 80-99 fL Mean Corpuscular Hemoglobin 30 25-34 pg Mean Corpuscular Hemoglobin Concent 33 32-36 g/dL Red Cell Distribution Width 12.9 10.0-14.5 % Platelet Count 318 130-400 10^3/uL Mean Platelet Volume 8.7 L 9.0-12.2 fL Immature Granulocyte % (Auto) 0 % Neutrophils (%) (Auto) 56 42-75 % Lymphocytes (%) (Auto) 14 12-44 % Monocytes (%) (Auto) 7 0-12 % Eosinophils (%) (Auto) 21 H 0-10 % Basophils (%) (Auto) 2 0-10 % Neutrophils # (Auto) 4.6 1.8-7.8 10^3/uL Lymphocytes # (Auto) 1.2 1.0-4.0 10^3/uL Monocytes # (Auto) 0.6 0.0-1.0 10^3/uL Eosinophils # (Auto) 1.7 H 0.0-0.3 10^3/uL Basophils # (Auto) 0.2 H 0.0-0.1 10^3/uL Immature Granulocyte # (Auto) 0.0 0.0-0.1 10^3/uL Neutrophils % (Manual) 61 % Lymphocytes % (Manual) 15 % Monocytes % (Manual) 4 % Eosinophils % (Manual) 20 % Basophils % (Manual) 0 % Blood Morphology Comment NORMAL D-Dimer <= 0.27 0.00-0.49 UG/ML Sodium Level 137 135-145 MMOL/L Potassium Level 4.3 3.6-5.0 MMOL/L Chloride Level 102 98-107 MMOL/L Carbon Dioxide Level 25 21-32 MMOL/L Anion Gap 10 5-14 MMOL/L Blood Urea Nitrogen 11 7-18 MG/DL Creatinine 0.97 0.60-1.30 MG/DL Estimat Glomerular Filtration Rate > 60 BUN/Creatinine Ratio 11 Glucose Level 102 70-105 MG/DL Lactic Acid Level 1.13 0.50-2.00 MMOL/L Calcium Level 9.0 8.5-10.1 MG/DL Corrected Calcium 8.8 8.5-10.1 MG/DL Total Bilirubin 0.6 0.1-1.0 MG/DL Aspartate Amino Transf (AST/SGOT) 21 5-34 U/L Alanine Aminotransferase (ALT/SGPT) 22 0-55 U/L Alkaline Phosphatase 96 40-136 U/L Troponin I 0.032 H <0.028 NG/ML B-Type Natriuretic Peptide < 10.0 <100.0 PG/ML Total Protein 6.9 6.4-8.2 GM/DL Albumin 4.3 3.2-4.5 GM/DL Blood Gas Puncture Site LR Blood Gas Patient Temperature 36.3 Arterial Blood pH 7.39 7.37-7.43 Arterial Blood Partial Pressure CO2 40 35-45 MMHG Arterial Blood Partial Pressure O2 78 L 79-93 MMHG Arterial Blood HCO3 24 23-27 MMOL/L Arterial Blood Total CO2 25.0 21.0-31.0 MMOL/L Arterial Blood Oxygen Saturation 96 94-100 % Arterial Blood Base Excess -0.8 -2.5-2.5 MMOL/L Alvaro Test YES-POS Blood Gas Ventilator Setting NO Blood Gas Inspired Oxygen 3L Urine Color YELLOW Urine Clarity CLEAR Urine pH 6.0 5-9 Urine Specific [place] 1.025 H 1.016-1.022 Urine Protein TRACE H NEGATIVE Urine Glucose (UA) NEGATIVE NEGATIVE Urine Ketones 1+ H NEGATIVE Urine Nitrite NEGATIVE NEGATIVE Urine Bilirubin NEGATIVE NEGATIVE Urine Urobilinogen 0.2 < = 1.0 MG/DL Urine Leukocyte Esterase NEGATIVE NEGATIVE Urine RBC (Auto) NEGATIVE NEGATIVE Urine RBC NONE /HPF Urine WBC 5-10 H /HPF Urine Squamous Epithelial Cells NONE /HPF Urine Crystals NONE /LPF Urine Bacteria NEGATIVE /HPF Urine Casts NONE /LPF Urine Mucus LARGE H /LPF Urine Culture Indicated NO Urine Opiates Screen POSITIVE H NEGATIVE Urine Oxycodone Screen NEGATIVE NEGATIVE Urine Methadone Screen NEGATIVE NEGATIVE Urine Propoxyphene Screen NEGATIVE NEGATIVE Urine Barbiturates Screen NEGATIVE NEGATIVE Ur Tricyclic Antidepressants Screen NEGATIVE NEGATIVE Urine Phencyclidine Screen NEGATIVE NEGATIVE Urine Amphetamines Screen NEGATIVE NEGATIVE Urine Methamphetamines Screen NEGATIVE NEGATIVE Urine Benzodiazepines Screen NEGATIVE NEGATIVE Urine Cocaine Screen NEGATIVE NEGATIVE Urine Cannabinoids Screen NEGATIVE NEGATIVE Erythrocyte Sedimentation Rate 16 0-30 MM/HR C-Reactive Protein High Sensitivity 2.63 H 0.00-0.50 MG/DL Test 10/22/20 05:02 Range/Units White Blood Count 6.0 4.3-11.0 10^3/uL Red Blood Count 4.69 4.30-5.52 10^6/uL Hemoglobin 14.0 13.3-17.7 g/dL Hematocrit 42 40-54 % Mean Corpuscular Volume 89 80-99 fL Mean Corpuscular Hemoglobin 30 25-34 pg Mean Corpuscular Hemoglobin Concent 34 32-36 g/dL Red Cell Distribution Width 12.5 10.0-14.5 % Platelet Count 337 130-400 10^3/uL Mean Platelet Volume 8.7 L 9.0-12.2 fL Immature Granulocyte % (Auto) 0 % Neutrophils (%) (Auto) 92 H 42-75 % Lymphocytes (%) (Auto) 7 L 12-44 % Monocytes (%) (Auto) 1 0-12 % Eosinophils (%) (Auto) 0 0-10 % Basophils (%) (Auto) 0 0-10 % Neutrophils # (Auto) 5.5 1.8-7.8 10^3/uL Lymphocytes # (Auto) 0.4 L 1.0-4.0 10^3/uL Monocytes # (Auto) 0.1 0.0-1.0 10^3/uL Eosinophils # (Auto) 0.0 0.0-0.3 10^3/uL Basophils # (Auto) 0.0 0.0-0.1 10^3/uL Immature Granulocyte # (Auto) 0.0 0.0-0.1 10^3/uL Neutrophils % (Manual) 90 % Lymphocytes % (Manual) 9 % Monocytes % (Manual) 1 % Blood Morphology Comment NORMAL Sodium Level 136 135-145 MMOL/L Potassium Level 3.9 3.6-5.0 MMOL/L Chloride Level 104 98-107 MMOL/L Carbon Dioxide Level 20 L 21-32 MMOL/L Anion Gap 12 5-14 MMOL/L Blood Urea Nitrogen 15 7-18 MG/DL Creatinine 0.88 0.60-1.30 MG/DL Estimat Glomerular Filtration Rate > 60 BUN/Creatinine Ratio 17 Glucose Level 172 H 70-105 MG/DL Calcium Level 8.7 8.5-10.1 MG/DL Corrected Calcium 8.6 8.5-10.1 MG/DL Total Bilirubin 0.5 0.1-1.0 MG/DL Aspartate Amino Transf (AST/SGOT) 18 5-34 U/L Alanine Aminotransferase (ALT/SGPT) 22 0-55 U/L Alkaline Phosphatase 87 40-136 U/L Troponin I < 0.028 <0.028 NG/ML Total Protein 6.8 6.4-8.2 GM/DL Albumin 4.1 3.2-4.5 GM/DL Procalcitonin 0.03 <0.10 NG/ML Physical Exam Physical Exam Vital Signs Vital Signs - First Documented 10/21/20 10/21/20 10:16 12:15 Temp 36.4 Pulse 74 Resp 20 B/P (MAP) 139/89 (106) Pulse Ox 90 O2 Delivery Room Air O2 Flow Rate 8 Capillary Refill : Height, Weight, BMI Height: 5'9.00" Weight: 199lbs. 0.0oz. 90.335094ik; 28.73 BMI Method: General Appearance: No Apparent Distress, WD/WN Eyes: Bilateral Eye Normal Inspection, Bilateral Eye PERRL, Bilateral Eye EOMI HEENT: PERRL/EOMI, TMs Normal, Normal ENT Inspection, Pharynx Normal, Moist Mucous Membranes Neck: Full Range of Motion, Normal Inspection, Non Tender, Supple, Carotid Bruit Respiratory: Chest Non Tender, No Accessory Muscle Use, No Respiratory Distress, Crackles, Rhonci, Wheezing Cardiovascular: Regular Rate, Rhythm, No Edema, No Gallop, No JVD, No Murmur, Normal Peripheral Pulses, Extra Beats Gastrointestinal: Normal Bowel Sounds, No Organomegaly, No Pulsatile Mass, Non Tender, Soft Back: Normal Inspection, No CVA Tenderness, No Vertebral Tenderness Extremity: Normal Capillary Refill, Normal Inspection, Normal Range of Motion, Non Tender, No Calf Tenderness, No Pedal Edema Neurologic/Psychiatric: Alert, Oriented x3, No Motor/Sensory Deficits, Normal Mood/Affect Skin: Normal Color, Warm/Dry Lymphatic: No Adenopathy A/P-Cardiology Admission Diagnosis Shortness of breath Premature ventricular contractions Gastroesophageal reflux disease Orthopnea Assessment/Plan Shortness of breath, increased wheezing, orthopnea. Patient reports significant exposure to farm animals and birds. 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 Treated with steroid with very minimal improvement. Seen by Dr. Maddox. Possible bronchoscopy Frequent premature ventricular contractions, ventricular trigeminy, no previous cardiac history, planning to evaluate echocardiogram, starting low-dose calcium channel blockers Gastroesophageal reflux disease. Underwent endoscopy on October 21, [address] PARKER showing esophagitis and hiatal hernia Increased risk of sleep apnea, managed by primary care physician KUMAR MARCOS MD Oct 22, 2020 10:14
[2020-10-22] MEDS: RT-ALBUTEROL/IPRATROPIUM 3 ML (DUONEB) VIAL INH SCH ×4 (11:14→22:36)
[2020-10-22] MEDS: RT--FLUTICASONE/SALMETEROL 113-14 (AIRDUO RespiCLICK) IH SCH ×2 (11:19→23:01)
--- NOTE | 2020-10-22 12:25 | Progress Note - Hospitalist ---
Subjective HPI/CC On Admission Date Seen by Provider: Oct 22, 2020 Time Seen by Provider: 12:00 Subjective/Events-last exam Ordered CT chest high resolution due to suspicion for hypersensitivity pneumonitis Patient had a much better night and certainly less dyspnea No distress today Steroids are causing some anxiety Eraxis started for fungal treatment empirically due to cheema exposure Talked about the crisis he is in and the fact that I have a suspicion for untreated ELMER and now reports stopping breathing at night a lot and she even recorded it and he was not aware he was doing that. Never had a sleep study. I suspect he has had untreated sleep apnea and that has caused a progressive condition and the recent Flu A and any other exposure has now caused the crisis. Will maintain all aggressive treatments for now. O2 helping also. On 3L/min. Review of Systems General: Fatigue Pulmonary: Dyspnea Focused Exam Lactate Level 10/21/20 13:50: Lactic Acid Level 1.13 Objective Exam Vital Signs Vital Signs Date Time Temp Pulse Resp B/P (MAP) Pulse Ox O2 Delivery O2 Flow Rate FiO2 10/22/20 14:38 93 3.00 10/22/20 12:34 119 10/22/20 11:48 36.7 20 123/64 (83) Nasal Cannula Capillary Refill : General Appearance: No Apparent Distress, WD/WN, Anxious Respiratory: Crackles, Decreased Breath Sounds, Wheezing Cardiovascular: Regular Rate, Rhythm Neurologic/Psychiatric: Alert, Oriented x3, No Motor/Sensory Deficits, Normal Mood/Affect Results/Procedures Lab Laboratory Tests 10/22/20 05:02 Patient resulted labs reviewed. Assessment/Plan Assessment and Plan Assess & Plan/Chief Complaint Assessment: Severe respiratory insufficiency following conscious sedation for EGD Dr Guerrero Progressive dyspnea x 6 weeks with wheezing on exam severe and orthopnea Flu A 1 month ago HTN GERD HH Slight elevation in troponin consulting Dr Zelaya Plan: IV steroids IV abx Lovenox Dr Zelaya and Dr Maddox consultation IgG level for COVID HLIVF Home meds Nebs 10/22/20: High resolution CT chest O2 IV steroids Eraxis empiric Lovenox VANESSA MAE DO Oct 22, 2020 12:25
[2020-10-22] MEDS ORDERED: ANIDULAFUNGIN INJECTION 200 MG in NS (IVPB) 250 ML IV ONE (12:30)
--- NOTE | 2020-10-22 14:20 | Diagnostic Imaging Report ---
INDICATION: Hypersensitivity pneumonitis. TECHNIQUE: Multiple contiguous axial high-resolution images were obtained through the chest with supine and prone. Comparison made with prior examination from 10/16/2020. FINDINGS: There are several sub-3 mm nodules in the left lung base. There is minimal scarring in the lung bases. There is no pleural or pericardial fluid. There is no pneumothorax. There is no evidence of interstitial lung disease. Thoracic aorta is normal in caliber. There is no pathologically enlarged adenopathy in the chest. There is no evidence of pneumonia. The visualized intra-abdominal structures are unremarkable. IMPRESSION: Several tiny noncalcified nodules in the left lung base likely granulomas. Recommend 6 month follow-up to ensure stability. No evidence of interstitial lung disease. There is some scarring in both lung bases left greater than right. No other acute cardiopulmonary abnormality. Dictated by: Dictated on workstation # [id number]
[2020-10-22] MEDS: MONTELUKAST 10 MG (SINGULAIR) TAB PO SCH (21:12)
[2020-10-22] MEDS: ENOXAPARIN 40 MG/0.4 ML (LOVENOX) SYR SC SCH (21:12)
[2020-10-22] MEDS: diphenhydrAMINE 25 MG TAB (BENADRYL) PO SCH (21:12)
[2020-10-22] MEDS: HYDROcodone/APAP 5 MG/325 MG (LORTAB) TAB PO PRN (23:33)
[2020-10-23] MEDS: RT-ALBUTEROL/IPRATROPIUM 3 ML (DUONEB) VIAL INH SCH ×4 (02:38→21:01)
[2020-10-23 04:18] VITALS: BP 125/72
[2020-10-23] MEDS: methylPREDNISolone 125 MG (Solu-MEDROL) VIAL IVP SCH ×4 (06:31→23:23)
[2020-10-23] MEDS: CEFEPIME INJECTION 1,000 MG in WATER (STERILE) FOR INJECTION 10 ML IV SCH ×4 (06:31→23:23)
[2020-10-23] MEDS: RT--FLUTICASONE/SALMETEROL 113-14 (AIRDUO RespiCLICK) IH SCH ×2 (07:01→21:01)
--- NOTE | 2020-10-23 07:01 | Progress Note - Hospitalist ---
Subjective HPI/CC On Admission Date Seen by Provider: Oct 23, 2020 Time Seen by Provider: 10:00 CC: Dyspnea HPI: This is a 64yoWM clinic patient of Dr Francisco who was transferred from endoscopy by Dr Guerrero and admitted for observation following an uncomplicated EGD which revealed a hiatal hernia. He was having such shortness of breath the decision was made to admit him directly to 4th floor[address] Dr Guerrero reports the patient had an enormous amount of questions and changes in his status the last 6 weeks and worsened to the point he could no longer function. I did speak to Dr Francisco the patient's PCP before seeing the patient also. Patient reports he had Flu A 1 month ago and had increasing SOB since that time. He has been sleeping in a recliner with his head almost straight up for the past several weeks. He reports wheezing and has never had this sort of issue before. He is a lifetime non-smoker. Patient has been tested for COVID and it was negative. IgG level was drawn on my admit orders to evaluate for underlying condition and that is pending. CT chest reviewed from ER visit 10/16/20 which revealed no significant abnl. D-dimer was negative so patient was placed on Lovenox 40mg daily. No signs of sepsis. PCT was normal but due to such dyspnea I placed him on broad spectrum abx while w/u in process. 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 His daughter is a nurse out of state. at bedside. No fever. No cough. No hemoptysis. 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 Abx likely have sterilized it by now Dr Maddox updated about possible bronchoscopy Spoke to Dr Zelaya Feels better but very wheezy still No pain reported Slept better last night Eraxis, Cefepime, Azithro and steroids maintained Review of Systems General: Fatigue Pulmonary: Dyspnea Focused Exam Lactate Level 10/21/20 13:50: Lactic Acid Level 1.13 Objective Exam Vital Signs Vital Signs Date Time Temp Pulse Resp B/P (MAP) Pulse Ox O2 Delivery O2 Flow Rate FiO2 10/23/20 14:29 91 Room Air 10/23/20 12:53 78 10/23/20 08:00 2.00 10/23/20 07:35 37.6 18 142/69 (93) Capillary Refill : General Appearance: No Apparent Distress, WD/WN, Anxious Respiratory: No Accessory Muscle Use, No Respiratory Distress, Wheezing Cardiovascular: Regular Rate, Rhythm Neurologic/Psychiatric: Alert, Oriented x3, No Motor/Sensory Deficits, Normal M ood/Affect Results/Procedures Lab Laboratory Tests 10/23/20 06:49 Patient resulted labs reviewed. Assessment/Plan Assessment and Plan Assess & Plan/Chief Complaint Assessment: Severe respiratory insufficiency following conscious sedation for EGD Dr Guerrero Progressive dyspnea x 6 weeks with wheezing on exam severe and orthopnea Flu A 1 month ago HTN GERD HH Slight elevation in troponin consulting Dr Zelaya Plan: IV steroids IV abx Lovenox Dr Zelaya and Dr Maddox consultation IgG level for COVID HLIVF Home meds Nebs 10/22/20: High resolution CT chest O2 IV steroids Eraxis empiric Lovenox 10/23/20: Maintain abx and antifungal Monitor O2 now on room air Diagnosis/Problems Diagnosis/Problems (1) Respiratory insufficiency (2) Dyspnea (3) Pneumonitis (4) Hiatal hernia (5) Wheezing Status: Acute (6) Acid reflux disease Status: Acute VANESSA MAE DO Oct 23, 2020 07:01
--- NOTE | 2020-10-23 07:10 | Pulmonary Progress Note ---
Subjective Time Seen by a Provider: 07:06 Sepsis Event Evaluation Height, Weight, BMI Height: 5'9.00" Weight: 199lbs. 0.0oz. 90.447984ru; 28.73 BMI Method: Focused Exam Lactate Level 10/21/20 13:50: Lactic Acid Level 1.13 Exam Exam Vital Signs Date Time Temp Pulse Resp B/P (MAP) Pulse Ox O2 Delivery O2 Flow Rate FiO2 10/23/20 04:18 36.8 88 20 125/72 (89) 95 Room Air 10/23/20 02:35 94 2.00 10/23/20 01:00 86 10/22/20 23:45 36.8 100 18 124/70 (88) 92 Room Air 10/22/20 20:00 36.6 74 18 136/65 (88) 97 Room Air 10/22/20 20:00 Nasal Cannula 2.00 10/22/20 19:00 87 10/22/20 15:46 36.8 113 20 133/66 (88) 94 Nasal Cannula 3.00 10/22/20 14:38 93 3.00 10/22/20 12:34 119 10/22/20 11:48 36.7 100 20 123/64 (83) 98 Nasal Cannula 3.00 10/22/20 11:23 93 3.00 10/22/20 08:00 36.5 62 20 123/66 (85) 93 Nasal Cannula 2.00 10/22/20 08:00 95 Nasal Cannula 2.00 I & O 10/23/20 07:00 Intake Total 2445 ml Balance 2445 ml Height & Weight Height: 5'9.00" Weight: 199lbs. 0.0oz. 90.076800tc; 28.73 BMI Method: General Appearance: No Apparent Distress, WD/WN, Anxious HEENT: PERRL/EOMI, Normal ENT Inspection, Pharynx Normal, Moist Mucous Membranes Neck: Full Range of Motion, Normal Inspection, Non Tender Respiratory: Crackles, Decreased Breath Sounds, Wheezing Cardiovascular: Regular Rate, Rhythm Extremity: Normal Capillary Refill, Normal Inspection, Normal Range of Motion, Non Tender, No Calf Tenderness, No Pedal Edema Neurologic/Psychiatric: Alert, Oriented x3, No Motor/Sensory Deficits, Normal Mood/Affect Skin: Normal Color, Warm/Dry Lymphatic: No Adenopathy Results Lab Laboratory Tests 10/21/20 13:50 10/22/20 05:02 Assessment/Plan Assessment/Plan Acute respiratory distress after EGD -continue to monitor -Now on RA -PCT is negative Acute bronchitis -Solumedrol -Increase Duoneb to Q4 -Out pt testing LLL pulmonary nodules -Repeat CT of chest in 6mo after discharge S/p Influenza 1 month ago NSTEMI -Cardiology following SALVATORE APODACA DO Oct 23, 2020 07:10
[2020-10-23 07:11] LABS: BASOPHILS % (AUTO) 0 % (0-10); EOSINOPHILS % (AUTO) 0 % (0-10); HEMATOCRIT 43 % (40-54); HEMOGLOBIN 14.2 g/dL (13.3-17.7); LYMPHOCYTES # (AUTO) 0.9 10^3/uL (1.0-4.0); LYMPHOCYTES % (AUTO) 7 % (12-44); MEAN CORPUSCULAR HEMOGLOBIN 30 pg (25-34); MEAN CORPUSCULAR HGB CONC 33 g/dL (32-36); MEAN CORPUSCULAR VOLUME 91 fL (80-99); MEAN PLATELET VOLUME 8.8 fL (9.0-12.2); MONOCYTES # (AUTO) 0.4 10^3/uL (0.0-1.0); MONOCYTES % (AUTO) 3 % (0-12); NEUTROPHILS # (AUTO) 11.9 10^3/uL (1.8-7.8); NEUTROPHILS % (AUTO) 90 % (42-75); PLATELET COUNT 353 10^3/uL (130-400); WHITE BLOOD COUNT 13.3 10^3/uL (4.3-11.0)
[2020-10-23 07:34] LABS: ALANINE AMINOTRANSFERASE 22 U/L (0-55); ALBUMIN 4.2 GM/DL (3.2-4.5); ALKALINE PHOSPHATASE 82 U/L (40-136); BILIRUBIN,TOTAL 0.3 MG/DL (0.1-1.0); BUN/CREATININE RATIO 17; CALCIUM 8.9 MG/DL (8.5-10.1); CARBON DIOXIDE 21 MMOL/L (21-32); CHLORIDE 106 MMOL/L (98-107); CREATININE SERUM 0.88 MG/DL (0.60-1.30); GFR ESTIMATED > 60; GLUCOSE 151 MG/DL (70-105); POTASSIUM 4.1 MMOL/L (3.6-5.0); SODIUM 138 MMOL/L (135-145); TOTAL PROTEIN 6.9 GM/DL (6.4-8.2)
[2020-10-23 07:35] VITALS: BP 142/69
[2020-10-23] MEDS: PANTOPRAZOLE 40 MG (PROTONIX) TAB PO SCH (08:07)
[2020-10-23] MEDS: AZITHROMYCIN INJECTION 250 MG in NS (IVPB) 250 ML IV SCH (08:07)
[2020-10-23] MEDS: LORATADINE (CLARITIN) 10 MG TAB PO SCH ×2 (08:07→20:47)
[2020-10-23] MEDS: FLUTICASONE NASAL SPRAY (FLONASE) 16 GM BTL NS SCH (08:09)
[2020-10-23] MEDS: ANIDULAFUNGIN INJECTION 100 MG in NS (IVPB) 100 ML IV SCH (09:21)
[2020-10-23] MEDS: ACETAMINOPHEN 325 MG TABLET PO PRN ×2 (09:29→20:47)
--- NOTE | 2020-10-23 10:16 | Diagnostic Imaging Report ---
PA and lateral chest at 750h. INDICATION: Rales, respiratory distress The heart size is within normal limits and stable when compared to 10/21/2020. The lungs remain clear. There is still no sign of failure, pneumonia or a pleural effusion. The mediastinum is not widened. The osseous structures are intact. Healed rib fractures are again seen on the right. IMPRESSION: Stable chest. There has been no significant change since the prior exam. Dictated by: Dictated on workstation # [id number]
--- NOTE | 2020-10-23 11:39 | Cardiology Progress Note ---
Subjective Date Seen by Provider: Oct 23, 2020 Time Seen by Provider: 11:37 Subjective/Events-last exam Patient is sitting in a chair, feeling better, still having wheezing Review of Systems General: No Chills, No Night Sweats, No Fatigue, No Malaise, No Appetite, No Other HEENT: No Head Aches, No Visual Changes, No Eye Pain, No Ear Pain, No Dysphasia, No Sinus Congestion, No Post Nasal Drip, No Sore Throat, No Other Pulmonary: Dyspnea; No Cough, No Pleuritic Chest Pain, No Other Cardiovascular: No: Chest Pain, Palpitations, Orthopnea, Paroxysmal Noc. Dyspnea, Edema, Lt Headedness, Other Focused Exam Lactate Level 10/21/20 13:50: Lactic Acid Level 1.13 Objective-Cardiology Exam Last Set of Vital Signs Vital Signs 10/23/20 10/23/20 10/23/20 04:18 07:00 08:00 Temp 36.8 Pulse 104 Resp 20 B/P (MAP) 125/72 (89) Pulse Ox 94 O2 Delivery Nasal Cannula O2 Flow Rate 2.00 Capillary Refill : I&O Intake and Output 10/23/20 00:00 Intake Total 2445 ml Balance 2445 ml Intake Oral 2445 ml # Voids 6 General: Alert, Oriented X3, Cooperative HEENT: Atraumatic, PERRLA Neck: Supple, No JVD, No Thyromegaly Lungs: Normal Air Movement, Other (Bilateral wheezing) Heart: Regular Rate, Normal S1, Normal S2, No Murmurs Abdomen: Normal Bowel Sounds, Soft, No Tenderness, No Hepatosplenomegaly, No Masses Extremities: No Clubbing, No Cyanosis, No Edema, Normal Pulses, No Tenderness/Swelling Skin: No Rashes, No Breakdown, No Significant Lesion Neuro: Normal Gait, Normal Speech, Strength at 5/5 X4 Ext, Normal Tone, Sensation Intact Psych/Mental Status: Mental Status NL, Mood NL Results Lab Laboratory Tests 10/23/20 06:49 A/P-Cardiology Admission Diagnosis Shortness of breath Premature ventricular contractions Gastroesophageal reflux disease Orthopnea Assessment/Plan Shortness of breath, increased wheezing, orthopnea. Patient reports significant exposure to farm animals and birds. 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 Treated with steroid with very minimal improvement. Seen by Dr. Maddox. Possi ble bronchoscopy Frequent premature ventricular contractions, ventricular trigeminy, no previous cardiac history, better at this time, I stopped the beta-chloe, will consider using calcium channel blockers if needed Gastroesophageal reflux disease. Underwent endoscopy on October 21, [address] 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 Considering fungal infection and possible coccidiomycosis. Patient is currently still having active wheezing. I discussed with Dr. Burns the management plan and will discuss it with Dr. Maddox, consider bronchoscopy KUMAR MARCOS MD Oct 23, 2020 11:39
[2020-10-23 12:00] VITALS: BP 126/76
[2020-10-23 15:57] VITALS: BP 146/65
[2020-10-23 19:25] VITALS: BP 135/86
[2020-10-23] MEDS: MONTELUKAST 10 MG (SINGULAIR) TAB PO SCH (20:47)
[2020-10-23] MEDS: diphenhydrAMINE 25 MG TAB (BENADRYL) PO SCH (20:47)
[2020-10-23] MEDS: ENOXAPARIN 40 MG/0.4 ML (LOVENOX) SYR SC SCH (20:47)
[2020-10-23] MEDS: HYDROcodone/APAP 5 MG/325 MG (LORTAB) TAB PO PRN (23:22)
[2020-10-24 00:45] VITALS: BP 143/77
[2020-10-24 04:25] VITALS: BP 113/66
--- NOTE | 2020-10-24 05:52 | Pulmonary Progress Note ---
Subjective Time Seen by a Provider: 05:45 Sepsis Event Evaluation Height, Weight, BMI Height: 5'9.00" Weight: 199lbs. 0.0oz. 90.813328do; 28.73 BMI Method: Focused Exam Lactate Level 10/21/20 13:50: Lactic Acid Level 1.13 Exam Exam Vital Signs Date Time Temp Pulse Resp B/P (MAP) Pulse Ox O2 Delivery O2 Flow Rate FiO2 10/24/20 04:25 36.6 78 20 113/66 (82) 95 Room Air 10/24/20 01:00 75 10/24/20 00:45 36.6 89 20 143/77 (99) 94 Room Air 10/23/20 21:01 93 Room Air 10/23/20 19:40 Room Air 10/23/20 19:25 36.4 81 18 135/86 (102) 96 Room Air 10/23/20 19:10 87 10/23/20 15:57 36.3 94 18 146/65 (92) 96 Room Air 10/23/20 14:29 91 Room Air 10/23/20 12:53 78 10/23/20 12:00 36.6 77 16 126/76 (93) 93 Room Air 10/23/20 08:00 94 Nasal Cannula 2.00 10/23/20 07:35 37.6 89 18 142/69 (93) 93 Nasal Cannula 2.00 10/23/20 07:00 104 10/23/20 06:56 92 Room Air 0.00 I & O 10/24/20 07:00 Intake Total 2320 ml Balance 2320 ml Height & Weight Height: 5'9.00" Weight: 199lbs. 0.0oz. [id number]; 28.73 BMI Method: General Appearance: No Apparent Distress, WD/WN, Anxious HEENT: PERRL/EOMI, Normal ENT Inspection, Pharynx Normal, Moist Mucous Membranes Neck: Full Range of Motion, Normal Inspection, Non Tender Respiratory: No Accessory Muscle Use, No Respiratory Distress, Wheezing Cardiovascular: Regular Rate, Rhythm Extremity: Normal Capillary Refill, Normal Inspection, Normal Range of Motion, Non Tender, No Calf Tenderness, No Pedal Edema Neurologic/Psychiatric: Alert, Oriented x3, No Motor/Sensory Deficits, Normal Mood/Affect Skin: Normal Color, Warm/Dry Lymphatic: No Adenopathy Results Lab Laboratory Tests 10/23/20 06:49 Assessment/Plan Assessment/Plan Acute respiratory distress after EGD secondary to acute bronchospasam -Doubt active PNA -Ok from pulmonary standpoint to D/C Abx -Possible home today with prednisone taper, zyrtec, and singulair. -continue to monitor -Now on RA -PCT is negative Acute bronchitis -- possible asthma -Solumedrol -Increase Duoneb to Q4 -AirDuo -Out pt testing Allergic rhinitis -Claritin and singulair Hx of exposure to farm animals and birds. 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 -No infiltrates/ ILD or lymphadenopathy found on CT scan. CT only shows scaring and noncalcified nodules probably secondary to exposure hx. -Treatment is avoiding aerosolized particles. -PT is requesting bronchoscopy. Doubt active infection however secondary to hx and recent hospitalization/symptoms will schedule for bronchoscopy. Leukocytosis - secondary to steroids LLL pulmonary nodules -Repeat CT of chest in 6mo after discharge S/p Influenza 1 month ago NSTEMI -Cardiology following SALVATORE APODACA DO Oct 24, 2020 05:52
[2020-10-24 05:53] LABS: BASOPHILS % (AUTO) 0 % (0-10); EOSINOPHILS % (AUTO) 0 % (0-10); HEMATOCRIT 40 % (40-54); HEMOGLOBIN 13.2 g/dL (13.3-17.7); LYMPHOCYTES # (AUTO) 0.7 10^3/uL (1.0-4.0); LYMPHOCYTES % (AUTO) 6 % (12-44); MEAN CORPUSCULAR HEMOGLOBIN 30 pg (25-34); MEAN CORPUSCULAR HGB CONC 33 g/dL (32-36); MEAN CORPUSCULAR VOLUME 92 fL (80-99); MEAN PLATELET VOLUME 9.2 fL (9.0-12.2); MONOCYTES # (AUTO) 0.2 10^3/uL (0.0-1.0); MONOCYTES % (AUTO) 2 % (0-12); NEUTROPHILS # (AUTO) 10.5 10^3/uL (1.8-7.8); NEUTROPHILS % (AUTO) 91 % (42-75); PLATELET COUNT 333 10^3/uL (130-400); WHITE BLOOD COUNT 11.5 10^3/uL (4.3-11.0)
[2020-10-24 06:17] LABS: ALANINE AMINOTRANSFERASE 22 U/L (0-55); ALBUMIN 3.7 GM/DL (3.2-4.5); ALKALINE PHOSPHATASE 75 U/L (40-136); BILIRUBIN,TOTAL 0.3 MG/DL (0.1-1.0); BUN/CREATININE RATIO 21; CALCIUM 8.2 MG/DL (8.5-10.1); CARBON DIOXIDE 20 MMOL/L (21-32); CHLORIDE 106 MMOL/L (98-107); CREATININE SERUM 0.77 MG/DL (0.60-1.30); GFR ESTIMATED > 60; GLUCOSE 129 MG/DL (70-105); POTASSIUM 4.3 MMOL/L (3.6-5.0); SODIUM 137 MMOL/L (135-145)
[2020-10-24] MEDS: methylPREDNISolone 125 MG (Solu-MEDROL) VIAL IVP SCH ×2 (06:34→12:27)
[2020-10-24] MEDS: CEFEPIME INJECTION 1,000 MG in WATER (STERILE) FOR INJECTION 10 ML IV SCH ×2 (06:34→12:27)
[2020-10-24] MEDS: RT-ALBUTEROL/IPRATROPIUM 3 ML (DUONEB) VIAL INH SCH (07:02)
[2020-10-24] MEDS: RT--FLUTICASONE/SALMETEROL 113-14 (AIRDUO RespiCLICK) IH SCH (07:04)
[2020-10-24 08:00] VITALS: BP 118/76
[2020-10-24] MEDS: FLUTICASONE NASAL SPRAY (FLONASE) 16 GM BTL NS SCH (08:15)
[2020-10-24] MEDS: PANTOPRAZOLE 40 MG (PROTONIX) TAB PO SCH (08:16)
[2020-10-24] MEDS: LORATADINE (CLARITIN) 10 MG TAB PO SCH (08:16)
[2020-10-24] MEDS: AZITHROMYCIN INJECTION 250 MG in NS (IVPB) 250 ML IV SCH (08:17)
[2020-10-24] MEDS ORDERED: DIPH25TA27 PO (09:57)
[2020-10-24] MEDS ORDERED: FLUC100T PO (09:57)
[2020-10-24] MEDS ORDERED: AZIT250T12 PO (09:57)
[2020-10-24] MEDS ORDERED: CEFD300C3 PO (09:57)
[2020-10-24] MEDS ORDERED: PRED10TA22 PO (09:57)
[2020-10-24] MEDS ORDERED: MONT10TA32 PO (09:57)
[2020-10-24] MEDS ORDERED: LORA10TA7 PO (09:57)
[2020-10-24] MEDS ORDERED: IPRA3AMP31 INH (09:57)
[2020-10-24] MEDS ORDERED: FLUT16SP22 NS (09:57)
[2020-10-24] MEDS ORDERED: FLUT1AER4 IH (09:57)
--- NOTE | 2020-10-24 09:57 | Discharge Summary ---
Diagnosis/Chief Complaint Date of Admission Oct 21, 2020 at 13:25 Date of Discharge Discharge Date: Oct 24, 2020 Discharge Diagnosis Assessment: Severe respiratory insufficiency following conscious sedation for EGD Dr Guerrero Progressive dyspnea x 6 weeks with wheezing on exam severe and orthopnea Flu A 1 month ago HTN GERD HH Slight elevation in troponin consulting Dr Zelaya Plan: IV steroids IV abx Lovenox Dr Zelaya and Dr Maddox consultation IgG level for COVID HLIVF Home meds Nebs 10/22/20: High resolution CT chest O2 IV steroids Eraxis empiric Lovenox 10/23/20: Maintain abx and antifungal Monitor O2 now on room air Discharge Summary Discharge Physical Examination Allergies: Coded Allergies: No Known Drug Allergies (Unverified , 08/31/11) Vitals & I&Os Vital Signs Date Time Temp Pulse Resp B/P (MAP) Pulse Ox O2 Delivery O2 Flow Rate FiO2 10/24/20 14:15 10/24/20 08:00 36.4 87 20 94 Room Air 10/23/20 08:00 2.00 General Appearance: Alert, Oriented X3, Cooperative Respiratory: Clear to Auscultation, Normal Air Movement, Other (subtle wheezes lower lobes) Cardiovascular: Regular Rate Neuro: Normal Gait, Normal Speech, Strength at 5/5 X4 Ext Psych/Mental Status: Mental Status NL Hospital Course Was the Problem List Reviewed?: Yes Hospital course: Pt had a lengthy hospital course after he was admitted following an EGD by Dr. Guerrero for SOB and wheezing that had worsened over six weeks, I did confer with Dr. Francisco, we ruled out any pulmonary embolism or pneumonia. I did place him on empiric antibiotics for bacterial bronchitis in addition to fungal pneumonia and high resolution CT showed no evidence of any hypersensitive pneumonitis. He will undergo bronchoscopy by Dr. Maddox on Saturday, and he was discharged on antibiotics, antifungal, and steroid taper dose, along with Singulair, Claritin and antihistamines in addition to Prednisone. He was much improved on exam at time of discharge. Labs (last 24 hrs) Laboratory Tests 10/21/20 13:25: Lab Scanned Report LAB Reports 10/21/20 13:50: White Blood Count 8.2, Red Blood Count 5.05, Hemoglobin 15.1, Hematocrit 46, Mean Corpuscular Volume 91, Mean Corpuscular Hemoglobin 30, Mean Corpuscular He moglobin Concent 33, Red Cell Distribution Width 12.9, Platelet Count 318, Mean Platelet Volume 8.7L, Immature Granulocyte % (Auto) 0, Neutrophils (%) (Auto) 56, Lymphocytes (%) (Auto) 14, Monocytes (%) (Auto) 7, Eosinophils (%) (Auto) 21H, Basophils (%) (Auto) 2, Neutrophils # (Auto) 4.6, Lymphocytes # (Auto) 1.2, Monocytes # (Auto) 0.6, Eosinophils # (Auto) 1.7H, Basophils # (Auto) 0.2H, Immature Granulocyte # (Auto) 0.0, Neutrophils % (Manual) 61, Lymphocytes % (Manual) 15, Monocytes % (Manual) 4, Eosinophils % (Manual) 20, Basophils % (Manual) 0, Blood Morphology Comment NORMAL, D-Dimer <= 0.27, Sodium Level 137, Potassium Level 4.3, Chloride Level 102, Carbon Dioxide Level 25, Anion Gap 10, Blood Urea Nitrogen 11, Creatinine 0.97, Estimat Glomerular Filtration Rate > 60, BUN/Creatinine Ratio 11, Glucose Level 102, Lactic Acid Level 1.13, Calcium Level 9.0, Corrected Calcium 8.8, Total Bilirubin 0.6, Aspartate Amino Transf (AST/SGOT) 21, Alanine Aminotransferase (ALT/SGPT) 22, Alkaline Phosphatase 96, Troponin I 0.032H, B-Type Natriuretic Peptide < 10.0, Total Protein 6.9, Albumin 4.3 10/21/20 13:55: Blood Gas Puncture Site LR, Blood Gas Patient Temperature 36.3, Arterial Blood pH 7.39, Arterial Blood Partial Pressure CO2 40, Arterial Blood Partial Pressure O2 78L, Arterial Blood HCO3 24, Arterial Blood Total CO2 25.0, Arterial Blood Oxygen Saturation 96, Arterial Blood Base Excess -0.8, Alvaro Test YES-POS, Blood Gas Ventilator Setting NO, Blood Gas Inspired Oxygen 3L 10/21/20 17:00: Urine Color YELLOW, Urine Clarity CLEAR, Urine pH 6.0, Urine Specific [place] 1.025H, Urine Protein TRACEH, Urine Glucose (UA) NEGATIVE, Urine Ketones 1+H, Urine Nitrite NEGATIVE, Urine Bilirubin NEGATIVE, Urine Urobilinogen 0.2, Urine Leukocyte Esterase NEGATIVE, Urine RBC (Auto) NEGATIVE, Urine RBC NONE, Urine WBC 5-10H, Urine Squamous Epithelial Cells NONE, Urine Crystals NONE, Urine Bacteria NEGATIVE, Urine Casts NONE, Urine Mucus LARGEH, Urine Culture Indicated NO, Urine Opiates Screen POSITIVEH, Urine Oxycodone Screen NEGATIVE, Urine Methadone Screen NEGATIVE, Urine Propoxyphene Screen NEGATIVE, Urine Barbiturates Screen NEGATIVE, Ur Tricyclic Antidepressants Screen NEGATIVE, Urine Phencyclidine Screen NEGATIVE, Urine Amphetamines Screen NEGATIVE, Urine Methamphetamines Screen NEGATIVE, Urine Benzodiazepines Screen NEGATIVE, Urine Cocaine Screen NEGATIVE, Urine Cannabinoids Screen NEGATIVE 10/21/20 17:29: Erythrocyte Sedimentation Rate 16, Ferritin 288.7, C-Reactive Protein High Sensitivity 2.63H, SARS-CoV-2 IgG Antibody Negative 10/22/20 05:02: White Blood Count 6.0, Red Blood Count 4.69, Hemoglobin 14.0, Hematocrit 42, Mean Corpuscular Volume 89, Mean Corpuscular Hemoglobin 30, Mean Corpuscular Hemoglobin Concent 34, Red Cell Distribution Width 12.5, Platelet Count 337, Mean Platelet Volume 8.7L, Immature Granulocyte % (Auto) 0, Neutrophils (%) (Auto) 92H, Lymphocytes (%) (Auto) 7L, Monocytes (%) (Auto) 1, Eosinophils (%) (Auto) 0, Basophils (%) (Auto) 0, Neutrophils # (Auto) 5.5, Lymphocytes # (Auto) 0.4L, Monocytes # (Auto) 0.1, Eosinophils # (Auto) 0.0, Basophils # (Auto) 0.0, Immature Granulocyte # (Auto) 0.0, Neutrophils % (Manual) 90, Lymphocytes % (Manual) 9, Monocytes % (Manual) 1, Blood Morphology Comment NORMAL, Sodium Level 136, Potassium Level 3.9, Chloride Level 104, Carbon Dioxide Level 20L, Anion Gap 12, Blood Urea Nitrogen 15, Creatinine 0.88, Estimat Glomerular Filtration Rate > 60, BUN/Creatinine Ratio 17, Glucose Level 172H, Calcium Level 8.7, Corrected Calcium 8.6, Total Bilirubin 0.5, Aspartate Amino Transf (AST/SGOT) 18, Alanine Aminotransferase (ALT/SGPT) 22, Alkaline Phosphatase 87, Troponin I < 0.028, Total Protein 6.8, Albumin 4.1, Procalcitonin 0.03 10/23/20 06:49: White Blood Count 13.3H, Red Blood Count 4.76, Hemoglobin 14.2, Hematocrit 43, Mean Corpuscular Volume 91, Mean Corpuscular Hemoglobin 30, Mean Corpuscular Hemoglobin Concent 33, Red Cell Distribution Width 13.0, Platelet Count 353, Mean Platelet Volume 8.8L, Immature Granulocyte % (Auto) 1, Neutrophils (%) (Auto) 90H, Lymphocytes (%) (Auto) 7L, Monocytes (%) (Auto) 3, Eosinophils (%) (Auto) 0, Basophils (%) (Auto) 0, Neutrophils # (Auto) 11.9H, Lymphocytes # (Auto) 0.9L, Monocytes # (Auto) 0.4, Eosinophils # (Auto) 0.0, Basophils # (Auto) 0.0, Immature Granulocyte # (Auto) 0.1, Sodium Level 138, Potassium Level 4.1, Chloride Level 106, Carbon Dioxide Level 21, Anion Gap 11, Blood Urea Nitrogen 15, Creatinine 0.88, Estimat Glomerular Filtration Rate > 60, BUN/Creatinine Ratio 17, Glucose Level 151H, Calcium Level 8.9, Corrected Calcium 8.7, Total Bilirubin 0.3, Aspartate Amino Transf (AST/SGOT) 15, Alanine Aminotransferase (ALT/SGPT) 22, Alkaline Phosphatase 82, Total Protein 6.9, A lbumin 4.2 10/24/20 05:08: White Blood Count 11.5H, Red Blood Count 4.37, Hemoglobin 13.2L, Hematocrit 40, Mean Corpuscular Volume 92, Mean Corpuscular Hemoglobin 30, Mean Corpuscular Hemoglobin Concent 33, Red Cell Distribution Width 13.1, Platelet Count 333, Mean Platelet Volume 9.2, Immature Granulocyte % (Auto) 1, Neutrophils (%) (Auto) 91H, Lymphocytes (%) (Auto) 6L, Monocytes (%) (Auto) 2, Eosinophils (%) (Auto) 0, Basophils (%) (Auto) 0, Neutrophils # (Auto) 10.5H, Lymphocytes # (Auto) 0.7L, Monocytes # (Auto) 0.2, Eosinophils # (Auto) 0.0, Basophils # (Auto) 0.0, Immature Granulocyte # (Auto) 0.1, Sodium Level 137, Potassium Level 4.3, Chloride Level 106, Carbon Dioxide Level 20L, Anion Gap 11, Blood Urea Nitrogen 16, Creatinine 0.77, Estimat Glomerular Filtration Rate > 60, BUN/Creatinine Ratio 21, Glucose Level 129H, Calcium Level 8.2L, Corrected Calcium 8.4L, Total Bilirubin 0.3, Aspartate Amino Transf (AST/SGOT) 17, Alanine Aminotransferase (ALT/SGPT) 22, Alkaline Phosphatase 75, Total Protein 6.0L, Albumin 3.7 10/24/20 10:41: Microbiology 10/23/20 Gram Stain - Final, Resulted 10/23/20 Sputum Culture - Preliminary, Resulted Culture In Progress Pending Labs Microbiology Date/Time Source Procedure Growth Status 10/23/20 15:03 Sputum Expectorated Gram Stain - Final Resulted 10/23/20 15:03 Sputum Culture - Preliminary Culture In Progress Resulted Laboratory Tests 10/21/20 13:25: Lab Scanned Report LAB Reports 10/21/20 13:50: White Blood Count 8.2, Red Blood Count 5.05, Hemoglobin 15.1, Hematocrit 46, M daniela Corpuscular Volume 91, Mean Corpuscular Hemoglobin 30, Mean Corpuscular Hemoglobin Concent 33, Red Cell Distribution Width 12.9, Platelet Count 318, Mean Platelet Volume 8.7, Immature Granulocyte % (Auto) 0, Neutrophils (%) (Auto) 56, Lymphocytes (%) (Auto) 14, Monocytes (%) (Auto) 7, Eosinophils (%) (Auto) 21, Basophils (%) (Auto) 2, Neutrophils # (Auto) 4.6, Lymphocytes # (Au to) 1.2, Monocytes # (Auto) 0.6, Eosinophils # (Auto) 1.7, Basophils # (Auto) 0.2, Immature Granulocyte # (Auto) 0.0, Neutrophils % (Manual) 61, Lymphocytes % (Manual) 15, Monocytes % (Manual) 4, Eosinophils % (Manual) 20, Basophils % (Manual) 0, Blood Morphology Comment NORMAL, D-Dimer <= 0.27, Sodium Level 137, Potassium Level 4.3, Chloride Level 102, Carbon Dioxide Level 25, Anion Gap 10, Blood Urea Nitrogen 11, Creatinine 0.97, Estimat Glomerular Filtration Rate > 60, BUN/Creatinine Ratio 11, Glucose Level 102, Lactic Acid Level 1.13, Calcium Level 9.0, Corrected Calcium 8.8, Total Bilirubin 0.6, Aspartate Amino Transf (AST/SGOT) 21, Alanine Aminotransferase (ALT/SGPT) 22, Alkaline Phosphatase 96, Troponin I 0.032, B-Type Natriuretic Peptide < 10.0, Total Protein 6.9, Albumin 4.3 10/21/20 13:55: Blood Gas Puncture Site LR, Blood Gas Patient Temperature 36.3, Arterial Blood pH 7.39, Arterial Blood Partial Pressure CO2 40, Arterial Blood Partial Pressure O2 78, Arterial Blood HCO3 24, Arterial Blood Total CO2 25.0, Arterial Blood Oxygen Saturation 96, Arterial Blood Base Excess -0.8, Alvaro Test YES-POS, Blood Gas Ventilator Setting NO, Blood Gas Inspired Oxygen 3L 10/21/20 17:00: Urine Color YELLOW, Urine Clarity CLEAR, Urine pH 6.0, Urine Specific [place] 1.025, Urine Protein TRACE, Urine Glucose (UA) NEGATIVE, Urine Ketones 1+, Urine Nitrite NEGATIVE, Urine Bilirubin NEGATIVE, Urine Urobilinogen 0.2, Urine Leukocyte Esterase NEGATIVE, Urine RBC (Auto) NEGATIVE, Urine RBC NONE, Urine WBC 5-10, Urine Squamous Epithelial Cells NONE, Urine Crystals NONE, Urine Bacteria NEGATIVE, Urine Casts NONE, Urine Mucus LARGE, Urine Culture Indicated NO, Urine Opiates Screen POSITIVE, Urine Oxycodone Screen NEGATIVE, Urine Methadone Screen NEGATIVE, Urine Propoxyphene Screen NEGATIVE, Urine Barbiturates Screen NEGATIVE, Ur Tricyclic Antidepressants Screen NEGATIVE, Urine Phencyclidine Screen NEGATIVE, Urine Amphetamines Screen NEGATIVE, Urine Methamphetamines Screen NEGATIVE, Urine Benzodiazepines Screen NEGATIVE, Urine Cocaine Screen NEGATIVE, Urine Cannabinoids Screen NEGATIVE 10/21/20 17:29: Erythrocyte Sedimentation Rate 16, Ferritin 288.7, C-Reactive Protein High Sensitivity 2.63, SARS-CoV-2 IgG Antibody Negative 10/22/20 05:02: White Blood Count 6.0, Red Blood Count 4.69, Hemoglobin 14.0, Hematocrit 42, Mean Corpuscular Volume 89, Mean Corpuscular Hemoglobin 30, Mean Corpuscular Hemoglobin Concent 34, Red Cell Distribution Width 12.5, Platelet Count 337, Mean Platelet Volume 8.7, Immature Granulocyte % (Auto) 0, Neutrophils (%) (Auto) 92, Lymphocytes (%) (Auto) 7, Monocytes (%) (Auto) 1, Eosinophils (%) (Auto) 0, Basophils (%) (Auto) 0, Neutrophils # (Auto) 5.5, Lymphocytes # (Auto) 0.4, Monocytes # (Auto) 0.1, Eosinophils # (Auto) 0.0, Basophils # (Auto) 0.0, Immature Granulocyte # (Auto) 0.0, Neutrophils % (Manual) 90, Lymphocytes % (Manual) 9, Monocytes % (Manual) 1, Blood Morphology Comment NORMAL, Sodium Level 136, Potassium Level 3.9, Chloride Level 104, Carbon Dioxide Level 20, Anion Gap 12, Blood Urea Nitrogen 15, Creatinine 0.88, Estimat Glomerular Filtration Rate > 60, BUN/Creatinine Ratio 17, Glucose Level 172, Calcium Level 8.7, Corrected Calcium 8.6, Total Bilirubin 0.5, Aspartate Amino Transf (AST/SGOT) 18, Alanine Aminotransferase (ALT/SGPT) 22, Alkaline Phosphatase 87, Troponin I < 0.028, Total Protein 6.8, Albumin 4.1, Procalcitonin 0.03 10/23/20 06:49: White Blood Count 13.3, Red Blood Count 4.76, Hemoglobin 14.2, Hematocrit 43, Mean Corpuscular Volume 91, Mean Corpuscular Hemoglobin 30, Mean Corpuscular Hemoglobin Concent 33, Red Cell Distribution Width 13.0, Platelet Count 353, Mean Platelet Volume 8.8, Immature Granulocyte % (Auto) 1, Neutrophils (%) (Aut o) 90, Lymphocytes (%) (Auto) 7, Monocytes (%) (Auto) 3, Eosinophils (%) (Auto) 0, Basophils (%) (Auto) 0, Neutrophils # (Auto) 11.9, Lymphocytes # (Auto) 0.9, Monocytes # (Auto) 0.4, Eosinophils # (Auto) 0.0, Basophils # (Auto) 0.0, Immature Granulocyte # (Auto) 0.1, Sodium Level 138, Potassium Level 4.1, Chloride Level 106, Carbon Dioxide Level 21, Anion Gap 11, Blood Urea Nitrogen 15, Creatinine 0.88, Estimat Glomerular Filtration Rate > 60, BUN/Creatinine Ratio 17, Glucose Level 151, Calcium Level 8.9, Corrected Calcium 8.7, Total Bilirubin 0.3, Aspartate Amino Transf (AST/SGOT) 15, Alanine Aminotransferase (ALT/SGPT) 22, Alkaline Phosphatase 82, Total Protein 6.9, Albumin 4.2 10/24/20 05:08: White Blood Count 11.5, Red Blood Count 4.37, Hemoglobin 13.2, Hematocrit 40, Mean Corpuscular Volume 92, Mean Corpuscular Hemoglobin 30, Mean Corpuscular Hemoglobin Concent 33, Red Cell Distribution Width 13.1, Platelet Count 333, Mean Platelet Volume 9.2, Immature Granulocyte % (Auto) 1, Neutrophils (%) (Auto) 91, Lymphocytes (%) (Auto) 6, Monocytes (%) (Auto) 2, Eosinophils (%) (Auto) 0, Basophils (%) (Auto) 0, Neutrophils # (Auto) 10.5, Lymphocytes # (Auto) 0.7, Monocytes # (Auto) 0.2, Eosinophils # (Auto) 0.0, Basophils # (Auto) 0.0, Immature Granulocyte # (Auto) 0.1, Sodium Level 137, Potassium Level 4.3, Chloride Level 106, Carbon Dioxide Level 20, Anion Gap 11, Blood Urea Nitrogen 16, Creatinine 0.77, Estimat Glomerular Filtration Rate > 60, BUN/Creatinine Ratio 21, Glucose Level 129, Calcium Level 8.2, Corrected Calcium 8.4, Total Bilirubin 0.3, Aspartate Amino Transf (AST/SGOT) 17, Alanine Aminotransferase (ALT/SGPT) 22, Alkaline Phosphatase 75, Total Protein 6.0, Albumin 3.7 10/24/20 10:41: Coronavirus (COVID-19)(PCR) [Pending] Discharge Home Medications: Active Scripts Active Prednisone 10 Mg Tab.ds.pk 10 Mg PO DAILY Take 6 tabs(60mg)daily,decrease by 1 tab(10MG)daily. Fluticasone Propionate 16 Gm Marshall.susp 0 Marshall NS DAILY Montelukast Sodium 10 Mg Tablet 10 Mg PO HS Fluticasone-Salmeterol 113-14 (Fluticasone/Salmeterol) 1 Each Aer.pow.ba 0 Each IH RTBID Iprat-Albut 0.5-3(2.5) mg/3 ml (Ipratropium/Albuterol Sulfate) 3 Ml Ampul.neb 3 Ml INH RTTID Diflucan (Fluconazole) 100 Mg Tablet 100 Mg PO DAILY Azithromycin 250 Mg Tablet 250 Mg PO DAILY Cefdinir 300 Mg Capsule 300 Mg PO BID Loratadine 10 Mg Tablet 10 Mg PO BID Banophen (Diphenhydramine HCl) 25 Mg Tablet 25 Mg PO HS Reported Sucralfate 1 Gm Tablet 1 Gm PO ACHS Pantoprazole Sodium 40 Mg Tablet.dr 40 Mg PO DAILY Reglan (Metoclopramide HCl) 5 Mg Tablet 5 Mg PO DAILY PRN Losartan Potassium 100 Mg Tablet 100 Mg PO DAILY Instructions to patient/family Please see electronic discharge instructions given to patient. Diagnosis/Problems Diagnosis/Problems (1) Respiratory insufficiency (2) Dyspnea (3) Pneumonitis (4) Hiatal hernia (5) Wheezing Status: Acute (6) Acid reflux disease Status: Acute VANESSA MAE DO Oct 24, 2020 09:57
[2020-10-24] MEDS: ACETAMINOPHEN 325 MG TABLET PO PRN (10:11)
--- NOTE | 2020-10-24 10:45 | Cardiology Progress Note ---
Subjective Date Seen by Provider: Oct 24, 2020 Time Seen by Provider: 10:44 Subjective/Events-last exam Patient was seen at bedside, feeling better. Still having active wheezing Review of Systems General: No Chills, No Night Sweats, No Fatigue, No Malaise, No Appetite, No Other HEENT: No Head Aches, No Visual Changes, No Eye Pain, No Ear Pain, No Dysphasia, No Sinus Congestion, No Post Nasal Drip, No Sore Throat, No Other Pulmonary: Dyspnea; No Cough, No Pleuritic Chest Pain, No Other Cardiovascular: No: Chest Pain, Palpitations, Orthopnea, Paroxysmal Noc. Dyspnea, Edema, Lt Headedness, Other Focused Exam Lactate Level 10/21/20 13:50: Lactic Acid Level 1.13 Objective-Cardiology Exam Last Set of Vital Signs Vital Signs 10/23/20 08:00 O2 Flow Rate 2.00 Capillary Refill : I&O Intake and Output 10/24/20 00:00 Intake Total 2320 ml Balance 2320 ml Intake Oral 1940 ml IV Total 380 ml # Voids 6 General: Alert, Oriented X3, Cooperative HEENT: Atraumatic, PERRLA Neck: Supple, No JVD, No Thyromegaly Lungs: Normal Air Movement, Other (Bilateral wheezing) Heart: Regular Rate, Normal S1, Normal S2, No Murmurs Abdomen: Normal Bowel Sounds, Soft, No Tenderness, No Hepatosplenomegaly, No Masses Extremities: No Clubbing, No Cyanosis, No Edema, Normal Pulses, No Tenderness/Swelling Skin: No Rashes, No Breakdown, No Significant Lesion Neuro: Normal Gait, Normal Speech, Strength at 5/5 X4 Ext, Normal Tone, Sensation Intact Psych/Mental Status: Mental Status NL, Mood NL Results Lab Laboratory Tests 10/24/20 05:08 A/P-Cardiology Admission Diagnosis Shortness of breath Premature ventricular contractions Gastroesophageal reflux disease Orthopnea Assessment/Plan Shortness of breath, increased wheezing, orthopnea. Patient reports significant exposure to farm animals and birds. 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 Treated with steroid with very minimal improvement. Seen by Dr. Maddox. Possible bronchoscopy Frequent premature ventricular contractions, ventricular trigeminy, no previous cardiac history, better at this time, I stopped the beta-chloe, will consider using calcium channel blockers if needed Gastroesophageal reflux disease. Underwent endoscopy on October 21, [address] PARKER showing esophagitis and hiatal hernia Increased risk of sleep apnea, managed by primary care physician KUMAR MARCOS MD Oct 24, 2020 10:45
--- NOTE | 2020-10-24 10:59 | Progress Note ---
ANGI POSADAS MED STUDENT 10/24/20 1059: Progress Note CC: Acute Respiratory Distress after EGD secondary to Acute Bronchospasm HPI: This is a 64yoWM clinic patient of [facility] with a history of HTN and GERD who was transferred from endoscopy by Dr Guerrero and admitted with severe dyspnea for observation following an uncomplicated EGD which revealed a hiatal hernia. Patient is a lifetime nonsmoker but does report that he had Flu A 1 month ago and has had increasing SOB since that time. He was seen at [facility] ED less than a week prior to endoscopy for shortness of breath with O2 sats in the low 90s which improved with DuoNeb. Patient was negative for COVID, Chest CT was negative for any significant abnormalities and D-dimer was also negative. Upon most recent admission, echo showed normal systolic function and BNP was less than 10. CXR was negative and repeat Chest CT showed no ILD or cardiopulmonary abnormalities with only tiny nodules which are most likely granulomas. Repeat C hest CT advised in 6 months. Covid IgG levels are pending to rule out any underlying residual illness. Patient has had exposure to multiple allergens so pulmonary coccidioidomycosis was briefly considered but imaging is not suggestive of this unlikely diagnosis. Even though preliminary testing was all negative, he was placed on broad spectrum IV abx, IV steroids, breathing treatments and Lovenox due to severe dyspnea and wheezing. Pulmonology was consulted and suspects underlying asthma. Additionally, patient's has concerns of undiagnosed ELMER with video-evidence of snoring and apneic events. With treatment, patient's breathing has improved considerably although he still has some expiatory wheezing. He will be discharged today on Azithromycin, Omniceff, Diflucan, Advair, Prednisone taper, Singulair and Zyrtec with instructions to return for outpatient bronchoscopy on Saturday morning. 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 All of these issues culminated in acute respiratory distress brought on by stress of sedation and EGD procedure. Outpatient polysomnography is advised upon recovery. BERTHA MAE DO 10/24/202046: Supervisory-Addendum Brief Verification & Attestation Participated in pt care: history, MDM, physical Personally performed: exam, history, MDM, supervision of care Care discussed with: Medical Student Procedures: n/a Results interpretation: Verified all documentation Verification and Attestation of Medical Student E/M Service A medical student performed and documented this service in my presence. I reviewed and verified all information documented by the medical student and made modifications to such information, when appropriate. I personally performed the physical exam and medical decision making. Bertha Mae, Oct 24, 2020,20:47 ANGI POSADAS MED STUDENT Oct 24, 2020 10:59 BERTHA MAE DO Oct 24, 2020 20:47
[2020-10-24] MEDS: ANIDULAFUNGIN INJECTION 100 MG in NS (IVPB) 100 ML IV SCH (12:28)
[2020-10-24] MEDS ORDERED: MONTELUKAST 10 MG (SINGULAIR) TAB PO SCH (21:00)
== END 2020-10-24 09:54 | disposition home or self-care (01) ==
LOC: ENDO 09:55 → 4TH 13:25 → UNDOADMOB 13:25 → 4TH 14:26 → UNDODISOB 10-24 14:23
PROVIDERS: ADMIT Internal Medicine; ATTEND Internal Medicine
DX: K21.00 Gastro-esophageal reflux disease with esophagitis, without bleeding (principal); I10 Essential (primary) hypertension; K44.9 Diaphragmatic hernia without obstruction or gangrene; K29.70 Gastritis, unspecified, without bleeding; I21.4 Non-ST elevation (NSTEMI) myocardial infarction; J20.9 Acute bronchitis, unspecified; J45.909 Unspecified asthma, uncomplicated; I49.3 Ventricular premature depolarization; R06.03 Acute respiratory distress; D72.829 Elevated white blood cell count, unspecified; R06.89 Other abnormalities of breathing; R06.00 Dyspnea, unspecified; J09.X2 Influenza due to identified novel influenza A virus with other respiratory manifestations; Z20.822 Contact with and (suspected) exposure to COVID-19; Z79.899 Other long term (current) drug therapy; Z90.89 Acquired absence of other organs; Z91.012 Allergy to eggs
CPT/HCPCS: 43239; 71046 ×2; 71250; 80053 ×4; 80306; 81000; 82728; 82805; 83605; 83880; 84145; 84484 ×2; 85007 ×2; 85025 ×2; 85027 ×2; 85379; 85652; 86141; 86769; 87070; 87205; 88305; 93005; 93306; 94640 ×6; 94760 ×4; U0002; 36415; 87635; 99211; G0378

== ENCOUNTER 2020-10-25 05:36 | Outpatient (CLI) | payer BC ==
[~2020-10-25] VITALS: Ht 175.3 cm; Wt 88.0 kg
[~2020-10-25 05:36] MED LIST changes: +AZIT250T12 PO; +CEFD300C3 PO; +DIPH25TA27 PO; +FLUC100T PO; +FLUT1AER4 IH; +IPRA3AMP31 INH; -LACTATED RINGERS 1,000 ML IV ONE; +LORA10TA7 PO; +MONT10TA32 PO; +PRED10TA22 PO
== END 2020-10-25 09:28 | disposition home or self-care (01) ==
LOC: PREOP 05:36
PROVIDERS: ATTEND Internal Medicine Critical Care Medicine
DX: Z01.818 Encounter for other preprocedural examination (principal)

== ENCOUNTER 2020-10-26 06:43 | Observation (INO) | payer BC ==
[2020-10-26] VITALS (11 sets, daily range): BP systolic 108–138; BP diastolic 55–91
[~2020-10-26] VITALS: Ht 175.3 cm; Wt 89.0 kg
[2020-10-26] MEDS ORDERED: LIDOCAINE PF 2% 5 ML (XYLOCAINE) VIAL INJ ONE (06:44)
[2020-10-26] MEDS ORDERED: LIDOCAINE PF 1% 2 ML VIAL IJ ONE (06:44)
[2020-10-26] MEDS ORDERED: fentaNYL INJ 100 MCG/2 ML AMP ONE (06:55)
[2020-10-26] MEDS ORDERED: proPOfol 200 MG/20 ML (DIPRIVAN) VIAL IV ONE (06:55)
[2020-10-26] MEDS ORDERED: SUCCINYLCHOLINE INJ 100 MG/5 ML SYR/VIAL ONE (06:55)
[2020-10-26] MEDS ORDERED: ROCURONIUM 10 MG/ML 5 ML SYRINGE IV ONE (06:56)
[2020-10-26] MEDS ORDERED: LIDOCAINE PF 2% 5 ML (XYLOCAINE) VIAL ONE (06:56)
[2020-10-26] MEDS ORDERED: ONDANSETRON 4 MG/2 ML (SDV) Z0FRAN ONE (06:56)
[2020-10-26] MEDS ORDERED: MIDAZOLAM 2 MG/2 ML (VERSED) VIAL ONE (06:56)
[2020-10-26] MEDS ORDERED: LACTATED RINGERS 1,000 ML IV ONE (06:58)
[2020-10-26] MEDS ORDERED: SEVOFLURANE (ULTANE) 15 ML INHAL SOLN ONE (07:00)
[2020-10-26] MEDS ORDERED: LACTATED RINGERS 1,000 ML IV STA (07:09)
[2020-10-26] MEDS ORDERED: NEOSTIGMINE 3 MG/3 ML VIAL ONE (07:56)
[2020-10-26] MEDS ORDERED: GLYCOPYRROLATE 0.2 MG/ML (ROBINUL) 2 ML VIAL ONE (07:56)
--- NOTE | 2020-10-26 08:09 | Pulmonary Procedures ---
Pulmonary Procedures Date of Procedure Date of Service: Oct 26, 2020 Bronch Bronchoscopy with RML lavage (BAL), Bilateral bronchial washes. Preop DX ILD Postop DX: same Complications: none After informed consent obtained and formal time out pt was sedated using Fentanyl and Versed. Bronchoscope was advanced through the nare and vocal cords. 1% lidocaine was used to anesthetize vocal cords, epiglottis, maría, and left/right main stem bronchus. An anatomical tour was undertaken down to the segmental bronchi bilaterally. No endobronchial lesions noted.Bronchoscopy with RML lavage (BAL), Bilateral bronchial washes were obtained. Pt tolerated procedure well. No complications noted. Stat CXR is pending. SALVATORE APODACA DO Oct 26, 2020 08:09
--- NOTE | 2020-10-26 08:24 | Anesthesia-General Post-Op ---
General Patient Condition Mental Status/LOC: Same as Preop Cardiovascular: Satisfactory Nausea/Vomiting: Absent Respiratory: Satisfactory Pain: Controlled Complications: Absent Post Op Complications Complications None Follow Up Care/Instructions Patient Instructions None needed. Anesthesia/Patient Condition Patient Condition Patient is doing well, no complaints, stable vital signs, no apparent adverse anesthesia problems. No complications reported per nursing. SANTIAGO REYNAGA CRNA Oct 26, 2020 08:24
[2020-10-26] MEDS ORDERED: PROMETHAZINE INJ 25 MG/ML (PHENERGAN) AMP IVP ONE (08:30)
[2020-10-26] MEDS ORDERED: morphine INJ 10 MG/ML 1ML (SYR OR VIAL) IVP ONE (08:30)
[2020-10-26] MEDS ORDERED: ONDANSETRON 4 MG/2 ML (SDV) Z0FRAN IVP PRN (08:30)
[2020-10-26] MEDS ORDERED: HYDROmorphone 2 MG/ML VIAL (DILAUDID) IV ONE (08:30)
[2020-10-26] MEDS ORDERED: MEPERIDINE (DEMEROL) INJ 50 MG/ML IVP ONE (08:30)
--- NOTE | 2020-10-26 08:50 | Diagnostic Imaging Report ---
INDICATION: Post bronchoscopy. Frontal chest obtained at 08:31 a.m. compared to 10/23/2020. FINDINGS: Heart is borderline in size. Mediastinal silhouette appears unremarkable for a portable view. There is no pneumothorax post bronchoscopy. There is no significant pleural fluid. There is some mild right basilar atelectasis. Old right-sided rib fractures are noted. IMPRESSION: No pneumothorax or pleural fluid following bronchoscopy. There is some mild right basilar atelectasis. Dictated by: Dictated on workstation # [id number]
[2020-10-26] MEDS ORDERED: meTOprolol 5 MG/5 ML (LOPRESSOR) VIAL ONE (09:47)
[2020-10-26] MEDS ORDERED: meTOprolol 5 MG/5 ML (LOPRESSOR) VIAL IV ONE (10:15)
[2020-10-26 10:59] LABS: BASOPHILS % (AUTO) 1 % (0-10); EOSINOPHILS # (AUTO) 0.1 10^3/uL (0.0-0.3); EOSINOPHILS % (AUTO) 1 % (0-10); HEMATOCRIT 44 % (40-54); HEMOGLOBIN 14.9 g/dL (13.3-17.7); LYMPHOCYTES # (AUTO) 1.2 10^3/uL (1.0-4.0); LYMPHOCYTES % (AUTO) 14 % (12-44); MEAN CORPUSCULAR HEMOGLOBIN 30 pg (25-34); MEAN CORPUSCULAR HGB CONC 34 g/dL (32-36); MEAN CORPUSCULAR VOLUME 89 fL (80-99); MEAN PLATELET VOLUME 8.8 fL (9.0-12.2); MONOCYTES # (AUTO) 0.5 10^3/uL (0.0-1.0); MONOCYTES % (AUTO) 6 % (0-12); NEUTROPHILS # (AUTO) 6.8 10^3/uL (1.8-7.8); NEUTROPHILS % (AUTO) 77 % (42-75); PLATELET COUNT 350 10^3/uL (130-400); WHITE BLOOD COUNT 8.8 10^3/uL (4.3-11.0)
[2020-10-26] MEDS ORDERED: RT-ALBUTEROL/IPRATROPIUM 3 ML (DUONEB) VIAL INH SCH ×2 (11:00→15:00)
[2020-10-26 11:12] LABS: CHLORIDE 101 MMOL/L (98-107); POTASSIUM 4.3 MMOL/L (3.6-5.0); SODIUM 136 MMOL/L (135-145)
--- NOTE | 2020-10-26 11:12 | History & Physical ---
ANGI POSADAS MED STUDENT 10/26/20 1112: History of Present Illness History of Present Illness Reason for visit/HPI CC: Acute cardiac arrhythmia HPI: Mr. Castillo is a 64yoWM clinic pt of Dr. Francisco who is a lifetime nonsmoker with hx of HTN, GERD and hiatal hernia who is admitted for observation today after developing an acute cardiac arrhythmia following uncomplicated bronchoscopy. He did not lose consciousness or experience any chest pain during this episode and was given Lopressor which converted him to sinus rhythm. During bronchoscopy white mucus plugs, which did not appear infectious, were removed and will be cultured, no other lesions identified. Patient is currently in cardiac stepdown resting comfortably without dyspnea or chest pain and telemetry displaying markedly labile heart rate (100 --> 48 --> 95) and irreg ular rhythm at times. Cardiology is consulted and will perform stress test today. Mr. Castillo was also admitted last week straight from endoscopy with acute respiratory distress after routine EGD diagnosed hiatal hernia and was just discharged two days ago. About a week previous to that he also visited [facility] ED for dyspnea and received a full workup with negative ddimer, Covid PCR and subsequent abs, CXR, CT chest, BNP and echo. He had Flu A 4-6 wks ago and has had ongoing pulmonary complications since that time. is at bedside today giving history of apneic events during sleep that have been ongoing for years. Suspect longstanding and severe ELMER that is untreated and exacerbated by recent flu A, multiple procedures requiring conscious sedation, and possible component of adult-onset asthma. We hope to perform sleep study HORACIO and in-house while patient under observation if possible. He will remain unstable until treatment started for ELMER. Date of Admission Oct 26, 2020 at 10:25 Date Seen by a Provider: Oct 26, 2020 Time Seen by a Provider: 11:00 I consulted on this patient on 10/26/20 11:06 Attending Physician Bertha Mae DO Admitting Physician Aravind Francisco MD Consult Allergies and Home Medications Allergies Coded Allergies: No Known Drug Allergies (Unverified , 08/31/11) Home Medications Azithromycin 250 Mg Tablet, 250 MG PO DAILY Prescribed by: BERTHA MAE on 10/24/20956 Last Action: Continued Cefdinir 300 Mg Capsule, 300 MG PO BID Prescribed by: BERTHA MAE on 10/24/20956 Last Action: Continued Diphenhydramine HCl 25 Mg Tablet, 25 MG PO HS Prescribed by: BERTHA MAE on 10/24/20956 Last Action: Continued Fluconazole 100 Mg Tablet, 100 MG PO DAILY Prescribed by: BERTHA MAE on 10/24/20956 Last Action: Continued Fluticasone Propionate 16 Gm Iuka.susp, 0 SPRAY NS DAILY Prescribed by: BERTHA MAE on 10/24/20956 Last Action: Continued Fluticasone/Salmeterol 1 Each Aer.pow.ba, 0 EACH IH RTBID Prescribed by: BERTHA MAE on 10/24/20956 Last Action: Continued Ipratropium/Albuterol Sulfate 3 Ml Ampul.neb, 3 ML INH RTTID Prescribed by: BERTHA MAE on 10/24/20956 Last Action: Continued Loratadine 10 Mg Tablet, 10 MG PO BID Prescribed by: BERTHA MAE on 10/24/20956 Last Action: Continued Losartan Potassium 100 Mg Tablet, 100 MG PO DAILY, (Reported) Last Action: Continued Metoclopramide HCl 5 Mg Tablet, 5 MG PO DAILY PRN, (Reported) Last Action: Continued Montelukast Sodium 10 Mg Tablet, 10 MG PO HS Prescribed by: BERTHA MAE on 10/24/20956 Last Action: Continued Pantoprazole Sodium 40 Mg Tablet.dr, 40 MG PO DAILY, (Reported) Last Action: Continued Prednisone 10 Mg Tab.ds.pk, 10 MG PO DAILY Take 6 tabs(60mg)daily,decrease by 1 tab(10MG)daily. Prescribed by: BERTHA MAE on 10/24/20956 Last Action: Converted Sucralfate 1 Gm Tablet, 1 GM PO ACHS, (Reported) Last Action: Continued Patient Home Medication List Home Medication List Reviewed: Yes Past Ssaojii-Onmfxt-Wujfta Hx Patient Social History Marrital Status: Employed/Student: employed Alcohol Beverage of Choice: Beer Smoking Status: Never a Smoker 2nd Hand Smoke Exposure: No Recent Hopitalizations: No Seasonal Allergies Seasonal Allergies: Yes Surgeries Yes (sinus sx, arm bicep sx, hemorrhoidectomy, ) Respiratory Yes Asthma Currently Using CPAP: No Cardiovascular Yes Hypertension Neurological No Reproductive System Hx Reproductive Disorders: No Genitourinary No Gastrointestinal Yes Gastroesophageal Reflux, Hemorrhoids, Hiatal Hernia Musculoskeletal No (FX T1 vertebae) Endocrine History of Endocrine Disorders: No HEENT History of HEENT Disorders: Yes (chronic sinusitis) Cancer No Psychosocial History of Psychiatric Problem: No Integumentary History of Skin or Integumenta: No Blood Transfusions History of Blood Disorders: No Family Medical History Other Significan Family Hx: HTN Review of Systems Constitutional: No diaphoresis, No dizziness, No fever, No malaise, No weakness EENTM: No hearing loss, No blurred vision, No hoarseness Respiratory: No cough, No hemoptysis, No orthopnea, No short of breath; wheezing (minimal expiratory wheezing - improving) Cardiovascular: No chest pain, No edema, No syncope; other (arrythmia noted during bronchoscopy ) Gastrointestinal: No abdominal pain, No jaundice, No loss of appetite, No melena, No nausea, No vomiting Genitourinary: No dysuria, No frequency, No hematuria Musculoskeletal: No back pain, No muscle pain Skin: No dryness, No lesions, No pruritus, No rash Psychiatric/Neurological: Denies Depressed, Denies Headache, Denies Numbness, Denies Paresthesia Physical Exam Vital Signs Vital Signs - First Documented 10/26/20 10/26/20 07:10 07:17 Temp 36.4 Pulse 60 Resp 16 B/P (MAP) 108/55 (72) Pulse Ox 98 O2 Delivery Room Air Capillary Refill : Less Than 3 Seconds Height, Weight, BMI Height: 5'9.00" Weight: 199lbs. 0.0oz. [id number]; 28.63 BMI Method: General Appearance: No Apparent Distress, WD/WN HEENT: PERRL/EOMI, Moist Mucous Membranes; No Scleral Icterus (L), No Scleral Icterus (R) Neck: Full Range of Motion, Normal Inspection, Non Tender, Supple Respiratory: Chest Non Tender, Normal Breath Sounds, No Accessory Muscle Use, No Respiratory Distress; No Crackles; Wheezing (minimal expiratory wheezing) Cardiovascular: No Edema, No JVD, Normal Peripheral Pulses, Other (extremely labile heart rate with abnormal rhythm) Gastrointestinal: Normal Bowel Sounds, Non Tender, Soft Back: No CVA Tenderness, No Vertebral Tenderness Extremity: Normal Capillary Refill, Non Tender, No Calf Tenderness Neurologic/Psychiatric: Alert, Oriented x3, Normal Mood/Affect Skin: Normal Color, Warm/Dry Lymphatic: No Adenopathy Assessment/Plan Assessment and Plan Assessment: Acute cardiac arrhythmia following conscious sedation for bronchoscopy w Dr. Maddox - Dr. Zelaya following Suspect Undiagnosed/Untreated ELMER Flu A ~1 month ago Progressive dyspnea x 6 weeks which is improved Expiratory wheezing since episode of ALVIN after endoscopy last week - markedly improved on exam HTN GERD HH Plan: Telemetry - monitory closely cardiac stepdown Stress test today with Dr. Zelaya EKG, BNP, Troponin and Ddimer drawn today to rule out other causes Duoneb Sepsis workup including procalcitonin and lactic acid IVF NS 50 ml/hr Polysomnography as soon as possible Problems: (1) HTN (hypertension) Status: Chronic (2) Chronic sinusitis Status: Chronic (3) Hiatal hernia Status: Chronic (4) Acid reflux disease Status: Chronic (5) Cardiac arrhythmia Status: Acute Admission Diagnosis Cardiac arrhythmia Admission Status: Observation Reason for Inpatient Admission: Arrhythmia BERTHA MAE DO 10/27/20 0542: History of Present Illness History of Present Illness Reason for visit/HPI CC: Cardiac arrhythmia HPI: This is a 64yoWM who I just discharged on Saturday after abrupt onset of dyspnea with wheezing that I managed through the weekend, placed on steroids, IV antibiotics, anti-fungals, nebulizer treatments, and cardiology and pulmonology consultation with high-resolution CT scan that showed no evidence of any hypersensitivity-pnueumonitis, who presents following a bronchoscopy I had arranged with Dr. Maddox, when Dr. Maddox called me and reported major cardiac arrhythmia changes on telemetry during the bronchoscopy. At this current time the Pt is doing well but my theory of severe untreated, undiagnosed ELMER with recent Flu A five weeks ago that progressed to the point of crisis has been evaluated, Dr. Zelaya will perform a stress test, and he appears to be high-risk for heart block. He will undergo sleep study tomorrow evening due to the severity of ELMER as I have evaluated. At this current time Pt denies any type of pain, at the bedside. Date of Admission 10/26/20 Allergies and Home Medications Allergies Coded Allergies: No Known Drug Allergies (Unverified , 08/31/11) Home Medications Azithromycin 250 Mg Tablet, 250 MG PO DAILY Prescribed by: BERTHA MAE on 10/24/20 4461 Last Action: Continued Cefdinir 300 Mg Capsule, 300 MG PO BID Prescribed by: BERTHA MAE on 10/24/20956 Last Action: Continued Diphenhydramine HCl 25 Mg Tablet, 25 MG PO HS Prescribed by: BERTHA MAE on 10/24/20956 Last Action: Continued Fluconazole 100 Mg Tablet, 100 MG PO DAILY Prescribed by: BERTHA MAE on 10/24/20956 Last Action: Continued Fluticasone Propionate 16 Gm Iuka.susp, 0 SPRAY NS DAILY Prescribed by: BERTHA MAE on 10/24/20956 Last Action: Continued Fluticasone/Salmeterol 1 Each Aer.pow.ba, 0 EACH IH RTBID Prescribed by: BERTHA MAE on 10/24/20956 Last Action: Continued Ipratropium/Albuterol Sulfate 3 Ml Ampul.neb, 3 ML INH RTTID Prescribed by: BERTHA MAE on 10/24/20956 Last Action: Continued Loratadine 10 Mg Tablet, 10 MG PO BID Prescribed by: BERTHA MAE on 10/24/20956 Last Action: Continued Losartan Potassium 100 Mg Tablet, 100 MG PO DAILY, (Reported) Last Action: Continued Metoclopramide HCl 5 Mg Tablet, 5 MG PO DAILY PRN, (Reported) Last Action: Continued Montelukast Sodium 10 Mg Tablet, 10 MG PO HS Prescribed by: BERTHA MAE on 10/24/20956 Last Action: Continued Pantoprazole Sodium 40 Mg Tablet.dr, 40 MG PO DAILY, (Reported) Last Action: Continued Prednisone 10 Mg Tab.ds.pk, 10 MG PO DAILY Take 6 tabs(60mg)daily,decrease by 1 tab(10MG)daily. Prescribed by: BERTHA MAE on 10/24/20956 Last Action: Converted Sucralfate 1 Gm Tablet, 1 GM PO ACHS, (Reported) Last Action: Continued Patient Home Medication List Home Medication List Reviewed: Yes Past Xhockeo-Eiylob-Qcfvxs Hx Patient Social History Marrital Status: Employed/Student: employed Smoking Status: Never a Smoker Alcohol Use?: No Cardiovascular High Cholesterol, Hypertension Gastrointestinal Gastroesophageal Reflux, Hiatal Hernia Musculoskeletal Arthritis Review of Systems Constitutional: see HPI Respiratory: dyspnea on exertion Cardiovascular: palpitations Physical Exam General Appearance: No Apparent Distress, WD/WN, Chronically ill, Obese Eyes: Bilateral Eye Normal Inspection, Bilateral Eye PERRL, Bilateral Eye EOMI HEENT: PERRL/EOMI, Normal ENT Inspection, Pharynx Normal Neck: Full Range of Motion, Normal Inspection, Non Tender, Supple, Carotid Bruit Respiratory: Chest Non Tender, Lungs Clear, Normal Breath Sounds, No Accessory Muscle Use, No Respiratory Distress Cardiovascular: No Edema, No Gallop, No JVD, No Murmur, Normal Peripheral Pulses, Irregularly Irregular, Tachycardia, Other (extremely labile heart rate with abnormal rhythm) Gastrointestinal: Normal Bowel Sounds, No Organomegaly, No Pulsatile Mass, Non Tender, Soft Back: Normal Inspection, No CVA Tenderness, No Vertebral Tenderness Extremity: Normal Capillary Refill, Normal Inspection, Normal Range of Motion, Non Tender, No Calf Tenderness, No Pedal Edema Neurologic/Psychiatric: Alert, Oriented x3, No Motor/Sensory Deficits, Normal Mood/Affect Skin: Normal Color, Warm/Dry Lymphatic: No Adenopathy Assessment/Plan Assessment and Plan EST Sleep study Monitor closely Supervisory-Addendum Brief Verification & Attestation Participated in pt care: history, MDM, physical Personally performed: exam, history, MDM, supervision of care Care discussed with: Medical Student Procedures: n/a Results interpretation: Verified all documentation Verification and Attestation of Medical Student E/M Service A medical student performed and documented this service in my presence. I reviewed and verified all information documented by the medical student and made modifications to such information, when appropriate. I personally performed the physical exam and medical decision making. Bertha Mae, Oct 27, 2020,05:40 ANGI POSADAS MED STUDENT Oct 26, 2020 11:12 BERTHA MAE DO Oct 27, 2020 05:42
[2020-10-26 11:13] LABS: CALCIUM 8.3 MG/DL (8.5-10.1)
[2020-10-26 11:15] LABS: GLUCOSE 98 MG/DL (70-105); TOTAL PROTEIN 6.5 GM/DL (6.4-8.2)
[2020-10-26] MEDS ORDERED: REGADENOSON 0.4 MG/5 ML SYR (LEXISCAN) IV ONE (11:15)
[2020-10-26 11:16] LABS: BILIRUBIN,TOTAL 0.5 MG/DL (0.1-1.0); CARBON DIOXIDE 23 MMOL/L (21-32)
[2020-10-26 11:18] LABS: ALKALINE PHOSPHATASE 75 U/L (40-136); CREATININE SERUM 0.79 MG/DL (0.60-1.30); GFR ESTIMATED > 60
[2020-10-26 11:19] LABS: BUN/CREATININE RATIO 23
[2020-10-26] MEDS ORDERED: NS IV 1000 ML 1,000 ML ONE (11:20)
[2020-10-26 11:21] LABS: ALANINE AMINOTRANSFERASE 37 U/L (0-55)
[2020-10-26] MEDS ORDERED: NS IV 1000 ML 1,000 ML IV SCH (11:30)
[2020-10-26] MEDS: ENOXAPARIN 40 MG/0.4 ML (LOVENOX) SYR SC SCH (11:44)
--- NOTE | 2020-10-26 13:23 | Pulmonary Consultation ---
History of Present Illness History of Present Illness Date Seen by Provider: Oct 26, 2020 Time Seen by Provider: 13:12 Date of Admission History of Present Illness 64 yo admitted secondary to frequent PVCs and ventricular bigeminy post bronchoscopy. He denies chest pain. No palpitation, having some cough. No syncope or near syncopal episodes. No claudications. No F/NS/C. Allergies and Home Medications Allergies Coded Allergies: No Known Drug Allergies (Unverified , 08/31/11) Home Medications Cefdinir 300 Mg Capsule, 300 MG PO BID Prescribed by: VANESSA MAE on 10/24/20956 Diphenhydramine HCl 25 Mg Tablet, 25 MG PO HS Prescribed by: VANESSA MAE on 10/24/20956 Fluconazole 100 Mg Tablet, 100 MG PO DAILY Prescribed by: VANESSA MAE on 10/24/20956 Fluticasone Propionate 16 Gm [place].susp, 0 SPRAY NS DAILY Prescribed by: VANESSA MAE on 10/24/20956 Fluticasone/Salmeterol 1 Each Aer.pow.ba, 0 EACH IH RTBID Prescribed by: VANESSA MAE on 10/24/20956 Ipratropium/Albuterol Sulfate 3 Ml Ampul.neb, 3 ML INH RTTID Prescribed by: VANESSA MAE on 10/24/20956 Loratadine 10 Mg Tablet, 10 MG PO BID Prescribed by: VANESSA MAE on 10/24/20956 Losartan Potassium 100 Mg Tablet, 100 MG PO DAILY, (Reported) Metoclopramide HCl 5 Mg Tablet, 5 MG PO DAILY PRN, (Reported) Montelukast Sodium 10 Mg Tablet, 10 MG PO HS Prescribed by: VANESSA MAE on 10/24/20956 Pantoprazole Sodium 40 Mg Tablet.dr, 40 MG PO DAILY, (Reported) Prednisone 10 Mg Tab.ds.pk, 10 MG PO DAILY Take 6 tabs(60mg)daily,decrease by 1 tab(10MG)daily. Prescribed by: VANESSA MAE on 10/24/20956 Sucralfate 1 Gm Tablet, 1 GM PO ACHS, (Reported) Past Ttwqbzj-Gqtojb-Offwvc Hx Patient Social History Alcohol Use: Occasionally Uses Number of Drinks Today: AA Alcohol Beverage of Choice: Beer Smoking Status: Never a Smoker 2nd Hand Smoke Exposure: No Recent Hopitalizations: No Seasonal Allergies Seasonal Allergies: Yes Past Medical History Surgeries: Yes (sinus sx, arm bicep sx, hemorrhoidectomy, ) Respiratory: Yes Asthma Currently Using CPAP: No Cardiac: Yes Hypertension Neurological: No Reproductive Disorders: No Genitourinary: No Gastrointestinal: Yes Gastroesophageal Reflux, Hemorrhoids, Hiatal Hernia 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) Endocrine: No HEENT: Yes (chronic sinusitis) Cancer: No Psychosocial: No Integumentary: No Blood Disorders: No Family Medical History HTN Review of Systems Time Seen by Provider: 13:12 Constitutional: Weakness, Malaise; No: Fever, Chills, Sweats, Other Eyes: No: Pain, Vision change, Conjunctivae inflammation, Eyelid inflammation, Other, Redness ENT: No: Ear pain, Ear discharge, Nose pain, Nose discharge, Nose congestion, Mouth pain, Mouth swelling, Throat pain, Throat swelling, Other Respiratory: Shortness of breath, SOB with excertion, Wheezing; No: Cough, Dry, Hemoptysis, Pleuritic Pain, Sputum, Wheezing, Other Cardiovascular: No: Chest Pain, Palpitations, Orthopnea, Paroxysmal Noc. Dyspnea, Edema, Lt Headedness, Other Sepsis Event Evaluation Height, Weight, BMI Height: 5'9.00" Weight: 199lbs. 0.0oz. 90.068186si; 28.63 BMI Method: Exam Exam Vital Signs Date Time Temp Pulse Resp B/P (MAP) Pulse Ox O2 Delivery O2 Flow Rate FiO2 10/26/20 11:11 101 10/26/20 08:50 22 123/82 (96) 95 OxyMask 2 10/26/20 08:50 OxyMask 2 10/26/20 08:40 18 115/72 (86) 98 OxyMask 3 10/26/20 08:35 OxyMask 6 10/26/20 08:30 20 124/84 (97) 98 OxyMask 6 10/26/20 08:20 36.1 20 138/91 (107) 98 OxyMask 6 10/26/20 08:20 OxyMask 6 10/26/20 07:56 18 10/26/20 07:17 36.4 60 16 108/55 (72) 98 Room Air 10/26/20 07:10 98 Room Air Height & Weight Height: 5'9.00" Weight: 199lbs. 0.0oz. 90.608379sr; 28.63 BMI Method: General Appearance: No Apparent Distress, WD/WN HEENT: PERRL/EOMI, Moist Mucous Membranes; No Scleral Icterus (L), No Scleral Icterus (R) Neck: Full Range of Motion, Normal Inspection, Non Tender, Supple Respiratory: Chest Non Tender, Normal Breath Sounds, No Accessory Muscle Use, No Respiratory Distress; No Crackles; Wheezing (minimal expiratory wheezing) Cardiovascular: No Edema, No JVD, Normal Peripheral Pulses, Other (extremely labile heart rate with abnormal rhythm) Extremity: Normal Capillary Refill, Non Tender, No Calf Tenderness Neurologic/Psychiatric: Alert, Oriented x3, Normal Mood/Affect Skin: Normal Color, Warm/Dry Lymphatic: No Adenopathy Results Lab Laboratory Tests 10/26/20 10:51 Assessment/Plan Assessment/Plan Cardiac arrhythmia's post bronchoscopy -Admit to Cardiac step down -Monitor Acute bronchitis r/o asthma -Doubt active PNA -- No leukocytosis, No Fever, normal PCT -DuoNeb -S/P bronchoscopy -- pt had copious amounts of thick white sputum bilaterally -Cultures pending Allergic rhinitis -Claritin and singulair Hx of exposure to farm animals and birds. 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 -No infiltrates/ ILD or lymphadenopathy found on CT scan. CT only shows scaring and noncalcified nodules probably secondary to exposure hx. -Treatment is avoiding aerosolized particles. -S/p bronch - cultures are pending LLL pulmonary nodules -Repeat CT of chest in 6mo after discharge S/p Influenza 1 month ago NSTEMI -Cardiology following SALVATORE APODACA DO Oct 26, 2020 13:23
--- NOTE | 2020-10-26 15:52 | Cardiology Stress Test Report ---
Stress Test Report Date of Procedure/Referring: Date of Procedure: Oct 26, 2020 PCP Bertha Burns DO Admitting Physician Aravind Francisco MD Indications: Arrhytmia Baseline Heart Rate: 67 Baseline Blood Pressure: Blood Pressure Systolic: 118 Blood Pressure Diastolic: 68 Vital Signs Date Time Temp Pulse Resp B/P (MAP) Pulse Ox O2 Delivery O2 Flow Rate FiO2 10/26/20 07:10 98 Room Air 10/26/20 07:17 36.4 60 16 108/55 (72) 10/26/20 08:20 6 Baseline Vital Signs Vital Signs Date Time Temp Pulse Resp B/P (MAP) Pulse Ox O2 Delivery O2 Flow Rate FiO2 10/26/20 07:10 98 Room Air 10/26/20 07:17 36.4 60 16 108/55 (72) 10/26/20 08:20 6 Baseline EKG: Baseline EKG: NSR Summary: After explaining the procedure and details to the patient, he signed the consent and was brought to the stress nuclear laboratory. Patient exercised on standard Alvaro protocol, EKG, heart rate and blood pressure were monitored continuously, resting and stress doses of radio tracer were injected, imaging was acquired and reviewed in the short axis, horizontal long axis and vertical long axis views Patient was able to exercise for a total of 6 minutes on Alvaro protocol, METs 9.7 Maximum heart rate 134 Maximum blood pressure 170/77 Stress EKG, Minimal nondiagnostic changes Recovery EKG, Return to baseline TID: 0.91 SSS: 4 SDS: 4 EF: 60 Conclusion: 1. Good exercise tolerance for a total of 8 minutes on standard Alvaro protocol, 9.7 METS achieving 85% of maximal expected heart rate 2. Oxygen saturation continue to be over 95% throughout the test 3. Occasional APCs noted early during the test persisted during exercise with occasional PVCs during exercise. 4. No significant ischemia or infarction on SPECT images 5. Normal left ventricular size, EF 60% KUMAR MARCOS MD Oct 26, 2020 15:52
--- NOTE | 2020-10-26 16:12 | Consultation-Cardiology ---
HPI-Cardiology Cardiology Consultation Date of Consultation 10/26/20 Date of Admission Time Seen by Provider: 16:07 Indication: Bradycardia HPI 64 years old gentleman was hospitalized after colonoscopy for frequent PVCs and ventricular bigeminy, was scheduled for bronchoscopy today and post bronchoscopy he was bradycardic and was having atrial bigeminy, frequent atrial premature contractions and wandering atrial pacemaker on his EKG. I was called for evaluation. On my evaluation he was feeling well, sitting comfortably, denied any chest pain. No palpitation, having some cough. No syncope or near syncopal episodes. No claudications. Home Medications & Allergies Allergies: Coded Allergies: No Known Drug Allergies (Unverified , 08/31/11) Home Medication List Reviewed: Yes CVO-Rkbdtr-Ksktnd Hx Patient Social History Marital Status: Employed/Student: employed Recreational Drug Use: No Smoking Status: Never a Smoker 2nd Hand Smoke Exposure: No Recent Hopitalizations: No Immunizations Up To Date Date of Influenza Vaccine: Apr 27, 2020 Past Medical History Discussed below Family Medical History Family Medical Hx Noncontributory Review of Systems-General Review of Systems Constitutional: chills; No diaphoresis, No dizziness, No fever, No malaise, No weakness EENTM: No hearing loss, No blurred vision, No hoarseness Respiratory: see HPI, cough; No hemoptysis, No orthopnea, No short of breath; wheezing (minimal expiratory wheezing - improving) Cardiovascular: see HPI; No chest pain, No edema, No Hx of Intervention, No palpitations, No syncope, No vascular heart diseas; other (arrythmia noted duri ng bronchoscopy ) Gastrointestinal: no symptoms reported, see HPI; No abdominal pain, No jaundice, No loss of appetite, No melena, No nausea, No vomiting Genitourinary: no symptoms reported, see HPI; No dysuria, No frequency, No hematuria Musculoskeletal: no symptoms reported, see HPI; No back pain, No muscle pain Skin: no symptoms reported, see HPI; No dryness, No lesions, No pruritus, No rash Psychiatric/Neurological: No Symptoms Reported, See HPI; Denies Depressed, Denies Headache, Denies Numbness, Denies Paresthesia Reviewed Test Results Reviewed Test Results Lab Laboratory Tests Test 10/26/20 10:51 Range/Units White Blood Count 8.8 4.3-11.0 10^3/uL Red Blood Count 4.98 4.30-5.52 10^6/uL Hemoglobin 14.9 13.3-17.7 g/dL Hematocrit 44 40-54 % Mean Corpuscular Volume 89 80-99 fL Mean Corpuscular Hemoglobin 30 25-34 pg Mean Corpuscular Hemoglobin Concent 34 32-36 g/dL Red Cell Distribution Width 12.7 10.0-14.5 % Platelet Count 350 130-400 10^3/uL Mean Platelet Volume 8.8 L 9.0-12.2 fL Immature Granulocyte % (Auto) 2 % Neutrophils (%) (Auto) 77 H 42-75 % Lymphocytes (%) (Auto) 14 12-44 % Monocytes (%) (Auto) 6 0-12 % Eosinophils (%) (Auto) 1 0-10 % Basophils (%) (Auto) 1 0-10 % Neutrophils # (Auto) 6.8 1.8-7.8 10^3/uL Lymphocytes # (Auto) 1.2 1.0-4.0 10^3/uL Monocytes # (Auto) 0.5 0.0-1.0 10^3/uL Eosinophils # (Auto) 0.1 0.0-0.3 10^3/uL Basophils # (Auto) 0.0 0.0-0.1 10^3/uL Immature Granulocyte # (Auto) 0.2 H 0.0-0.1 10^3/uL D-Dimer < 0.27 0.00-0.49 UG/ML Sodium Level 136 135-145 MMOL/L Potassium Level 4.3 3.6-5.0 MMOL/L Chloride Level 101 98-107 MMOL/L Carbon Dioxide Level 23 21-32 MMOL/L Anion Gap 12 5-14 MMOL/L Blood Urea Nitrogen 18 7-18 MG/DL Creatinine 0.79 0.60-1.30 MG/DL Estimat Glomerular Filtration Rate > 60 BUN/Creatinine Ratio 23 Glucose Level 98 70-105 MG/DL Lactic Acid Level 1.73 0.50-2.00 MMOL/L Calcium Level 8.3 L 8.5-10.1 MG/DL Corrected Calcium 8.3 L 8.5-10.1 MG/DL Total Bilirubin 0.5 0.1-1.0 MG/DL Aspartate Amino Transf (AST/SGOT) 21 5-34 U/L Alanine Aminotransferase (ALT/SGPT) 37 0-55 U/L Alkaline Phosphatase 75 40-136 U/L Troponin I < 0.028 <0.028 NG/ML B-Type Natriuretic Peptide 39.2 <100.0 PG/ML Total Protein 6.5 6.4-8.2 GM/DL Albumin 4.0 3.2-4.5 GM/DL Procalcitonin 0.03 <0.10 NG/ML Physical Exam Physical Exam Vital Signs Vital Signs - First Documented 10/26/20 10/26/20 07:10 07:17 Temp 36.4 Pulse 60 Resp 16 B/P (MAP) 108/55 (72) Pulse Ox 98 O2 Delivery Room Air Capillary Refill : Less Than 3 SecondsLess Than 3 Seconds Height, Weight, BMI Height: 5'9.00" Weight: 199lbs. 0.0oz. 90.606320ki; 28.63 BMI Method: General Appearance: No Apparent Distress, WD/WN HEENT: PERRL/EOMI, Moist Mucous Membranes; No Scleral Icterus (L), No Scleral Icterus (R) Neck: Full Range of Motion, Normal Inspection, Non Tender, Supple Respiratory: Chest Non Tender, Normal Breath Sounds, No Accessory Muscle Use, No Respiratory Distress; No Crackles; Wheezing (minimal expiratory wheezing) Cardiovascular: No Edema, No JVD, Normal Peripheral Pulses, Other (extremely labile heart rate with abnormal rhythm) Gastrointestinal: Normal Bowel Sounds, Non Tender, Soft Back: No CVA Tenderness, No Vertebral Tenderness Extremity: Normal Capillary Refill, Non Tender, No Calf Tenderness Neurologic/Psychiatric: Alert, Oriented x3, Normal Mood/Affect Skin: Normal Color, Warm/Dry Lymphatic: No Adenopathy A/P-Cardiology Admission Diagnosis Frequent atrial premature contractions Wandering atrial pacemaker Reactive airway disease Bronchitis Assessment/Plan Frequent atrial premature contractions, atrial bigeminy with episodes of bradycardia induced by compensatory pause after APCs. I gave him low-dose of beta-blockers which limited his APCs and improve his heart rate slightly. Exercise stress test was carried out today patient was able to exercise for 8 minutes on standard Alvaro protocol with appropriate improvement in his heart rate up to 130 without any significant arrhythmia. No ischemic changes were noted. SPECT images did not show any ischemia. Reactive airway disease, significant wheezing, had a bronchoscopy patient had thick white sputum bilaterally. Cultures are pending. 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 No significant infiltrate found on CT scan. There were some scarring and noncalcified nodule noted. Patient is intolerant to beta-chloe due to reactive airway disease and episodes of bradycardia. Probably underlying sleep apnea, managed by primary care team KUMAR MARCOS MD Oct 26, 2020 4:12 pm
[2020-10-26] MEDS ORDERED: METOCLOPRAMIDE 5 MG (REGLAN) TAB PO PRN (17:15)
[2020-10-26] MEDS: RT-ALBUTEROL/IPRATROPIUM 3 ML (DUONEB) VIAL INH SCH (18:41)
[2020-10-26] MEDS: RT--FLUTICASONE/SALMETEROL 232-14 (AIRDUO RespiCLICK) IH SCH (18:41)
[2020-10-26] MEDS: SUCRALFATE 1 GM (CARAFATE) TAB PO SCH (21:00)
[2020-10-26] MEDS: LORATADINE (CLARITIN) 10 MG TAB PO SCH (21:00)
[2020-10-26] MEDS: diphenhydrAMINE 25 MG TAB (BENADRYL) PO SCH (21:00)
[2020-10-26] MEDS: MONTELUKAST 10 MG (SINGULAIR) TAB PO SCH (21:00)
[2020-10-26] MEDS ORDERED: RT--FLUTICASONE/SALMETEROL 113-14 (AIRDUO RespiCLICK) IH SCH (21:00)
[2020-10-26] MEDS ORDERED: MONTELUKAST 10 MG (SINGULAIR) TAB PO SCH (21:00)
[2020-10-26] MEDS: CEFDINIR 300 MG (OMNICEF) CAP PO SCH (21:00)
--- NOTE | 2020-10-27 05:37 | Pulmonary Progress Note ---
Subjective Time Seen by a Provider: 05:36 Sepsis Event Evaluation Height, Weight, BMI Height: 5'9.00" Weight: 199lbs. 0.0oz. 90.485218hx; 28.63 BMI Method: Focused Exam Lactate Level 10/26/20 10:51: Lactic Acid Level 1.73 Exam Exam Vital Signs Date Time Temp Pulse Resp B/P (MAP) Pulse Ox O2 Delivery O2 Flow Rate FiO2 10/27/20 05:03 36.6 58 15 117/72 (87) 95 Room Air 10/27/20 04:00 Room Air 10/27/20 01:00 82 10/27/20 00:55 35.8 72 22 116/77 (90) 95 Room Air 10/27/20 00:00 Room Air 10/26/20 20:00 Room Air 10/26/20 19:40 36.5 90 16 133/84 (100) 92 Room Air 10/26/20 19:00 92 10/26/20 18:20 98 Room Air 10/26/20 16:00 98 Room Air 10/26/20 15:33 36.7 82 19 116/82 (93) 96 Room Air 10/26/20 15:08 Nasal Cannula 2.00 10/26/20 14:33 98 Room Air 10/26/20 12:00 Nasal Cannula 2.00 10/26/20 12:00 36.6 56 18 132/87 (102) 96 Room Air 10/26/20 12:00 98 Room Air 10/26/20 11:11 101 10/26/20 09:50 36.2 22 118/68 (85) 96 OxyMask 2 10/26/20 09:50 Room Air 10/26/20 09:40 22 118/68 (85) 96 OxyMask 2 10/26/20 09:35 OxyMask 2 10/26/20 09:30 18 128/82 (97) 96 OxyMask 2 10/26/20 09:20 OxyMask 2 10/26/20 09:20 16 128/82 (97) 96 OxyMask 2 10/26/20 09:10 12 124/85 (98) 95 OxyMask 2 10/26/20 09:05 OxyMask 2 10/26/20 09:00 18 119/79 (92) 98 OxyMask 2 10/26/20 08:50 22 123/82 (96) 95 OxyMask 2 10/26/20 08:50 OxyMask 2 10/26/20 08:40 18 115/72 (86) 98 OxyMask 3 10/26/20 08:35 OxyMask 6 10/26/20 08:30 20 124/84 (97) 98 OxyMask 6 10/26/20 08:20 36.1 20 138/91 (107) 98 OxyMask 6 10/26/20 08:20 OxyMask 6 10/26/20 07:56 18 10/26/20 07:17 36.4 60 16 108/55 (72) 98 Room Air 10/26/20 07:10 98 Room Air I & O 10/27/20 06:59 Intake Total 1300 ml Output Total 500 ml Balance 800 ml Height & Weight Height: 5'9.00" Weight: 199lbs. 0.0oz. 90.201329ta; 28.63 BMI Method: General Appearance: No Apparent Distress, WD/WN HEENT: PERRL/EOMI, Moist Mucous Membranes; No Scleral Icterus (L), No Scleral Icterus (R) Neck: Full Range of Motion, Normal Inspection, Non Tender, Supple Respiratory: Chest Non Tender, Normal Breath Sounds, No Accessory Muscle Use, No Respiratory Distress; No Crackles; Wheezing (minimal expiratory wheezing) Cardiovascular: No Edema, No JVD, Normal Peripheral Pulses, Other (extremely labile heart rate with abnormal rhythm) Capillary Refill: Less Than 3 Seconds Extremity: Normal Capillary Refill, Non Tender, No Calf Tenderness Neurologic/Psychiatric: Alert, Oriented x3, Normal Mood/Affect Skin: Normal Color, Warm/Dry Lymphatic: No Adenopathy Results Lab Laboratory Tests 10/26/20 10:51 Assessment/Plan Assessment/Plan Cardiac arrhythmia's post bronchoscopy -Admit to Cardiac step down -Monitor Probable ELMER -Will do PSG tonight Acute bronchitis r/o asthma -Doubt active PNA -- No leukocytosis, No Fever, normal PCT -DuoNeb -S/P bronchoscopy -- pt had copious amounts of thick white sputum bilaterally -Cultures pending Allergic rhinitis -Claritin and singulair Hx of exposure to farm animals and birds. 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 -No infiltrates/ ILD or lymphadenopathy found on CT scan. CT only shows scaring and noncalcified nodules probably secondary to exposure hx. -Treatment is avoiding aerosolized particles. -S/p bronch - cultures are pending LLL pulmonary nodules -Repeat CT of chest in 6mo after discharge S/p Influenza 1 month ago NSTEMI -Cardiology following SALVATORE APODACA DO Oct 27, 2020 05:37
[2020-10-27] MEDS: predniSONE 10 MG TAB PO SCH (06:27)
[2020-10-27] MEDS: SUCRALFATE 1 GM (CARAFATE) TAB PO SCH ×4 (06:27→20:09)
[2020-10-27 06:47] LABS: BASOPHILS % (AUTO) 0 % (0-10); EOSINOPHILS # (AUTO) 0.1 10^3/uL (0.0-0.3); EOSINOPHILS % (AUTO) 1 % (0-10); HEMATOCRIT 42 % (40-54); HEMOGLOBIN 14.3 g/dL (13.3-17.7); LYMPHOCYTES # (AUTO) 1.8 10^3/uL (1.0-4.0); LYMPHOCYTES % (AUTO) 25 % (12-44); MEAN CORPUSCULAR HEMOGLOBIN 30 pg (25-34); MEAN CORPUSCULAR HGB CONC 34 g/dL (32-36); MEAN CORPUSCULAR VOLUME 89 fL (80-99); MEAN PLATELET VOLUME 8.6 fL (9.0-12.2); MONOCYTES # (AUTO) 0.5 10^3/uL (0.0-1.0); MONOCYTES % (AUTO) 7 % (0-12); NEUTROPHILS # (AUTO) 4.8 10^3/uL (1.8-7.8); NEUTROPHILS % (AUTO) 65 % (42-75); PLATELET COUNT 330 10^3/uL (130-400); WHITE BLOOD COUNT 7.4 10^3/uL (4.3-11.0)
[2020-10-27 07:06] LABS: ALANINE AMINOTRANSFERASE 33 U/L (0-55); ALBUMIN 3.6 GM/DL (3.2-4.5); ALKALINE PHOSPHATASE 66 U/L (40-136); BILIRUBIN,TOTAL 0.3 MG/DL (0.1-1.0); BUN/CREATININE RATIO 26; CALCIUM 8.1 MG/DL (8.5-10.1); CARBON DIOXIDE 21 MMOL/L (21-32); CHLORIDE 102 MMOL/L (98-107); GFR ESTIMATED > 60; GLUCOSE 104 MG/DL (70-105); POTASSIUM 3.6 MMOL/L (3.6-5.0); SODIUM 136 MMOL/L (135-145); TOTAL PROTEIN 5.8 GM/DL (6.4-8.2)
[2020-10-27] MEDS: fluCOnazole (DIFLUCAN) 100 MG TAB PO SCH (08:32)
[2020-10-27] MEDS: LOSARTAN 100 MG (COZAAR) TABLET PO SCH (08:32)
[2020-10-27] MEDS: CEFDINIR 300 MG (OMNICEF) CAP PO SCH ×2 (08:32→20:09)
[2020-10-27] MEDS: PANTOPRAZOLE 40 MG (PROTONIX) TAB PO SCH (08:33)
[2020-10-27] MEDS: FLUTICASONE NASAL SPRAY (FLONASE) 16 GM BTL NS SCH (08:38)
[2020-10-27] MEDS: LORATADINE (CLARITIN) 10 MG TAB PO SCH ×2 (08:38→20:10)
--- NOTE | 2020-10-27 08:58 | Cardiology Progress Note ---
Subjective Date Seen by Provider: Oct 27, 2020 Time Seen by Provider: 08:57 Subjective/Events-last exam Patient was seen at bedside, sitting comfortably, denied any pain or discomfort Review of Systems General: No Chills, No Night Sweats, No Fatigue, No Malaise, No Appetite, No Other HEENT: No Head Aches, No Visual Changes, No Eye Pain, No Ear Pain, No Dysphasia, No Sinus Congestion, No Post Nasal Drip, No Sore Throat, No Other Pulmonary: No Dyspnea, No Cough, No Pleuritic Chest Pain, No Other Cardiovascular: No: Chest Pain, Palpitations, Orthopnea, Paroxysmal Noc. Dyspnea, Edema, Lt Headedness, Other Focused Exam Lactate Level 10/26/20 10:51: Lactic Acid Level 1.73 Objective-Cardiology Exam Last Set of Vital Signs Vital Signs 10/26/20 10/27/20 10/27/20 15:08 07:37 08:10 Temp 36.4 Pulse 96 Resp 16 B/P (MAP) 113/73 (86) Pulse Ox 95 O2 Delivery Room Air O2 Flow Rate 2.00 Capillary Refill : Less Than 3 SecondsLess Than 3 Seconds I&O Intake and Output 10/27/20 00:00 Intake Total 1300 ml Balance 1300 ml Intake Oral 300 ml IV Total 1000 ml # Voids 2 Daily Weight Change Yes, 24-33 lbs General: Alert, Oriented X3, Cooperative HEENT: Atraumatic, PERRLA Neck: Supple, No JVD, No Thyromegaly Lungs: Clear to Auscultation, Normal Air Movement Heart: Regular Rate, Normal S1, Normal S2, No Murmurs Abdomen: Normal Bowel Sounds, Soft, No Tenderness, No Hepatosplenomegaly, No Masses Extremities: No Clubbing, No Cyanosis, No Edema, Normal Pulses, No Tenderness/Swelling Skin: No Rashes, No Breakdown, No Significant Lesion Neuro: Normal Gait, Normal Speech, Strength at 5/5 X4 Ext, Normal Tone, Sensation Intact Psych/Mental Status: Mental Status NL, Mood NL Results Lab Laboratory Tests 10/26/20 10:51 10/27/20 06:38 A/P-Cardiology Admission Diagnosis Frequent atrial premature contractions Wandering atrial pacemaker Reactive airway disease Bronchitis Assessment/Plan Frequent atrial premature contractions, atrial bigeminy with episodes of bradycardia induced by compensatory pause after APCs. Telemetry monitoring showing episodes of sinus bradycardia, currently in sinus rhythm with a heart rate 70 with frequent premature ventricular contractions. Cannot tolerate beta- blockers or calcium channel blockers due to the episode of bradycardia with a heart rate in the 40s. I discussed with him referral for EP evaluation as an outpatient Exercise stress test was carried out on October 26, 2020, patient was able to exercise for 8 minutes on standard Alvaro protocol with appropriate improvement in his heart rate up to 130 without any significant arrhythmia. No ischemic changes were noted. SPECT images did not show any ischemia. Reactive airway disease, significant wheezing, had a bronchoscopy patient had thick white sputum bilaterally. Cultures are pending. 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 No significant infiltrate found on CT scan. There were some scarring and noncalcified nodule noted. Patient is intolerant to beta-chloe due to reactive airway disease and episodes of bradycardia. Probably underlying sleep apnea, managed by primary care team KUMAR MARCOS MD Oct 27, 2020 08:58
[2020-10-27] MEDS ORDERED: NON-FORMULARY MEDICATION 1 EA EA (Prednisone 10 MG) PO SCH (09:00)
[2020-10-27] MEDS ORDERED: LORATADINE (CLARITIN) 10 MG TAB PO SCH (09:00)
[2020-10-27] MEDS ORDERED: AZITHROMYCIN 250 MG TAB (ZITHROMAX) PO SCH (09:00)
[2020-10-27] MEDS: RT-ALBUTEROL/IPRATROPIUM 3 ML (DUONEB) VIAL INH SCH ×2 (10:48→21:23)
[2020-10-27] MEDS: RT--FLUTICASONE/SALMETEROL 232-14 (AIRDUO RespiCLICK) IH SCH ×2 (10:48→21:23)
[2020-10-27] MEDS: ENOXAPARIN 40 MG/0.4 ML (LOVENOX) SYR SC SCH (11:00)
[2020-10-27 11:50] VITALS: BP 132/66
--- NOTE | 2020-10-27 11:55 | Progress Note ---
ANGI POSADAS MED STUDENT 10/27/20 1155: Subjective Date Seen by a Provider: Oct 27, 2020 Time Seen by a Provider: 09:00 Subjective/Events-last exam 10/27/20 Pt stable and on telemetry - continues to have abnormal rhythm Stress test unremarkable yesterday - will be referred to EP at [facility] for rhythm control because cannot tolerate CCB or BB due to bradycardia Will move to 4th floor today and continue telemetry Sleep study tonight D/C IVF Focused Exam Lactate Level 10/26/20 10:51: Lactic Acid Level 1.73 Objective Exam Last Set of Vital Signs Vital Signs Date Time Temp Pulse Resp B/P (MAP) Pulse Ox O2 Delivery O2 Flow Rate FiO2 10/27/20 10:48 94 Room Air 10/27/20 07:37 36.4 96 16 113/73 (86) 10/26/20 15:08 2.00 Capillary Refill : Less Than 3 SecondsLess Than 3 Seconds I&O Intake and Output 10/27/20 00:00 Intake Total 1300 ml Balance 1300 ml Intake Oral 300 ml IV Total 1000 ml # Voids 2 Daily Weight Change Yes, 24-33 lbs General: Alert, Oriented X3, Cooperative, No Acute Distress HEENT: PERRLA Neck: Supple, No JVD, No Thyromegaly Lungs: Clear to Auscultation, Normal Air Movement Heart: Regular Rate, No Murmurs, Other (abnormal rhythm - PACs) Abdomen: Normal Bowel Sounds, Soft, No Tenderness Extremities: No Edema, Normal Pulses Skin: No Rashes Neuro: Normal Gait, Normal Speech Psych/Mental Status: Mental Status NL, Mood NL Results Lab Laboratory Tests 10/27/20 06:38: White Blood Count 7.4, Red Blood Count 4.73, Hemoglobin 14.3, Hematocrit 42, Mean Corpuscular Volume 89, Mean Corpuscular Hemoglobin 30, Mean Corpuscular Hemoglobin Concent 34, Red Cell Distribution Width 12.7, Platelet Count 330, Mean Platelet Volume 8.6L, Immature Granulocyte % (Auto) 3, Neutrophils (%) (Auto) 65, Lymphocytes (%) (Auto) 25, Monocytes (%) (Auto) 7, Eosinophils (%) (Auto) 1, Basophils (%) (Auto) 0, Neutrophils # (Auto) 4.8, Lymphocytes # (Auto) 1.8, Monocytes # (Auto) 0.5, Eosinophils # (Auto) 0.1, Basophils # (Auto) 0.0, Immature Granulocyte # (Auto) 0.2H, Sodium Level 136, Potassium Level 3.6, Chloride Level 102, Carbon Dioxide Level 21, Anion Gap 13, Blood Urea Nitrogen 21H, Creatinine 0.80, Estimat Glomerular Filtration Rate > 60, BUN/Creatinine Ratio 26, Glucose Level 104, Calcium Level 8.1L, Corrected Calcium 8.4L, Total Bilirubin 0.3, Aspartate Amino Transf (AST/SGOT) 17, Alanine Aminotransferase (ALT/SGPT) 33, Alkaline Phosphatase 66, Total Protein 5.8L, Albumin 3.6 Assessment/Plan Assessment/Plan Assess & Plan/Chief Complaint Assessment: Frequent atrial premature contractions Wandering atrial pacemaker Reactive airway disease Suspect Undiagnosed/Untreated ELMER Flu A ~1 month ago Progressive dyspnea x 6 weeks which is improved HTN GERD HH Plan: Telemetry - monitory closely move to 4th floor Sleep study devorah Haynes Referral to EP at [facility] Final Diagnosis Arrhythmia and possible underlying ELMER Diagnosis/Problems Diagnosis/Problems (1) HTN (hypertension) Status: Chronic (2) Chronic sinusitis Status: Chronic (3) Hiatal hernia Status: Chronic (4) Acid reflux disease Status: Chronic (5) Cardiac arrhythmia Status: Acute Clinical Quality Measures Admission Status Admission Dx Cardiac arrhythmia BERTHA MAE DO 10/28/20 0511: Subjective Subjective/Events-last exam Pt doing very well but having a lot of tachycardia along with bradycardia a type of sick sinus syndrome it appears Dr. Zelaya wants to send him to an multimedia educational specialist at as an outpatient Sleep study arranged for tonight Labs remain stable Overall doing very well Review of Systems General: Fatigue Pulmonary: Dyspnea Objective Exam General: Alert, Oriented X3, Cooperative, No Acute Distress Lungs: Clear to Auscultation, Normal Air Movement Heart: Regular Rate, Normal S1, Normal S2, No Murmurs Neuro: Normal Gait, Normal Speech, Strength at 5/5 X4 Ext, Normal Tone Psych/Mental Status: Mental Status NL, Mood NL Assessment/Plan Assessment/Plan Assess & Plan/Chief Complaint Sleep study tonight Cardiac multimedia educational specialist Supervisory-Addendum Brief Verification & Attestation Participated in pt care: history, MDM, physical Personally performed: exam, history, MDM, supervision of care Care discussed with: Medical Student Procedures: n/a Results interpretation: Verified all documentation Verification and Attestation of Medical Student E/M Service A medical student performed and documented this service in my presence. I reviewed and verified all information documented by the medical student and made modifications to such information, when appropriate. I personally performed the physical exam and medical decision making. Bertha Mae, Oct 28, 2020,05:11 ANGI POSADAS MED STUDENT Oct 27, 2020 11:55 BERTHA MAE DO Oct 28, 2020 05:11
[2020-10-27 15:35] VITALS: BP 110/72
[2020-10-27 19:25] VITALS: BP 125/71
[2020-10-27] MEDS: diphenhydrAMINE 25 MG TAB (BENADRYL) PO SCH (20:09)
[2020-10-27] MEDS: MONTELUKAST 10 MG (SINGULAIR) TAB PO SCH (20:09)
[2020-10-27 23:00] VITALS: BP 134/82
[2020-10-28 04:59] VITALS: BP 136/89
[2020-10-28 07:27] VITALS: BP 152/69
[2020-10-28] MEDS: RT-ALBUTEROL/IPRATROPIUM 3 ML (DUONEB) VIAL INH SCH (08:57)
[2020-10-28] MEDS: RT--FLUTICASONE/SALMETEROL 232-14 (AIRDUO RespiCLICK) IH SCH ×2 (08:57→09:23)
[2020-10-28] MEDS: predniSONE 10 MG TAB PO SCH (09:22)
[2020-10-28] MEDS: LOSARTAN 100 MG (COZAAR) TABLET PO SCH (09:23)
[2020-10-28] MEDS: CEFDINIR 300 MG (OMNICEF) CAP PO SCH (09:23)
[2020-10-28] MEDS: fluCOnazole (DIFLUCAN) 100 MG TAB PO SCH (09:23)
[2020-10-28] MEDS: PANTOPRAZOLE 40 MG (PROTONIX) TAB PO SCH (09:23)
[2020-10-28] MEDS: ENOXAPARIN 40 MG/0.4 ML (LOVENOX) SYR SC SCH (09:23)
[2020-10-28] MEDS: SUCRALFATE 1 GM (CARAFATE) TAB PO SCH ×2 (09:24→11:18)
[2020-10-28] MEDS: FLUTICASONE NASAL SPRAY (FLONASE) 16 GM BTL NS SCH (09:25)
[2020-10-28] MEDS: LORATADINE (CLARITIN) 10 MG TAB PO SCH (09:28)
--- NOTE | 2020-10-28 11:12 | Discharge Summary ---
Diagnosis/Chief Complaint Date of Admission Oct 26, 2020 at 10:25 Date of Discharge Discharge Date: Oct 28, 2020 Discharge Diagnosis Assessment: Frequent atrial premature contractions Wandering atrial pacemaker during bronch prompting admit Reactive airway disease Suspect Undiagnosed/Untreated ELMER Flu A ~1 month ago Progressive dyspnea x 6 weeks which is improved HTN GERD HH Plan: Telemetry - monitory closely move to 4th floor Sleep study phyliciathais Ivy Referral to EP at [facility] Reason Hospital Visit CC: Cardiac arrhythmia HPI: This is a 64yoWM who I just discharged on Saturday after abrupt onset of dyspnea with wheezing that I managed through the weekend, placed on steroids, IV antibiotics, anti-fungals, nebulizer treatments, and cardiology and pulmonology consultation with high-resolution CT scan that showed no evidence of any hypersensitivity-pnueumonitis, who presents following a bronchoscopy I had arranged with Dr. Maddox, when Dr. Maddox called me and reported major cardiac arrhythmia changes on telemetry during the bronchoscopy. At this current time the Pt is doing well but my theory of severe untreated, undiagnosed ELMER with recent Flu A five weeks ago that progressed to the point of crisis has been evaluated, Dr. Zelaya will perform a stress test, and he appears to be high-risk for heart block. He will undergo sleep study tomorrow evening due to the severity of ELMER as I have evaluated. At this current time Pt denies any type of pain, at the bedside. Discharge Summary Discharge Physical Examination Allergies: Coded Allergies: No Known Drug Allergies (Unverified , 08/31/11) Vitals & I&Os Vital Signs Date Time Temp Pulse Resp B/P (MAP) Pulse Ox O2 Delivery O2 Flow Rate FiO2 10/28/20 12:39 10/28/20 08:59 95 Room Air 10/28/20 07:27 36.3 68 18 10/26/20 15:08 2.00 Hospital Course Was the Problem List Reviewed?: Yes CC: Frequent atrial premature contractions; Wandering atrial pacemaker and ELMER HPI: Mr. Castillo is a 64yoWM clinic pt of Dr. Francisco who is a lifetime nonsmoker with hx of HTN, GERD and hiatal hernia who was admitted for observation to cardiac stepdown after developing bradycardic rhythm with atrial bigeminy, frequent atrial premature contractions and wandering atrial pacemaker on EKG following uncomplicated bronchoscopy. He did not lose consciousness or experience any chest pain during this episode. Cardiology was consulted and performed stress test which did not identify any ischemia or notable arrhythmia. Patient trialed beta chloe but cannot tolerate due to significant bradycardia and reactive airway disease. Dr. Zelaya will arrange for a consult with EP at [facility] and in a few weeks patient will follow-up with Dr. Zelaya in clinic. Preliminary results from bronchoscopy cultures are unremarkable. Of note, Mr. Castillo was also admitted last week straight from endoscopy with acute respiratory distress after routine EGD diagnosed hiatal hernia and was just discharged earlier this week from that hospital stay. Furthermore, a week previous to that he also visited [facility] ED for dyspnea and received a full workup with negative ddimer, Covid PCR and subsequent abs, CXR, CT chest, BNP and echo. He had Flu A 4-6 wks ago and has had ongoing pulmonary complications since that time. gave history of apneic events during sleep that have been ongoing for years. Sleep study was performed and diagnosed ELMER with CRIS of 7. He will be discharged and started on treatment for ELMER, initially on autopap until he can return for official titration. Suspect long history of untreated ELMER has played a major role in newly identified arrhythmia. Patient will require close follow- up with pcp, Dr. Zelaya and referral to [facility] EP. ANGI POSADAS STUDENT Labs (last 24 hrs) Laboratory Tests 10/26/20 10:51: White Blood Count 8.8, Red Blood Count 4.98, Hemoglobin 14.9, Hematocrit 44, Mean Corpuscular Volume 89, Mean Corpuscular Hemoglobin 30, Mean Corpuscular Hemoglobin Concent 34, Red Cell Distribution Width 12.7, Platelet Count 350, Mean Platelet Volume 8.8L, Immature Granulocyte % (Auto) 2, Neutrophils (%) (Auto) 77H, Lymphocytes (%) (Auto) 14, Monocytes (%) (Auto) 6, Eosinophils (%) (Auto) 1, Basophils (%) (Auto) 1, Neutrophils # (Auto) 6.8, Lymphocytes # (Auto) 1.2, Monocytes # (Auto) 0.5, Eosinophils # (Auto) 0.1, Basophils # (Auto) 0.0, Immature Granulocyte # (Auto) 0.2H, D-Dimer < 0.27, Sodium Level 136, Potassium Level 4.3, Chloride Level 101, Carbon Dioxide Level 23, Anion Gap 12, Blood Urea Nitrogen 18, Creatinine 0.79, Estimat Glomerular Filtration Rate > 60, BUN/Creatinine Ratio 23, Glucose Level 98, Mean Blood Glucose 120, Hemoglobin A1c 5.8H, Lactic Acid Level 1.73, Calcium Level 8.3L, Corrected Calcium 8.3L, Total Bilirubin 0.5, Aspartate Amino Transf (AST/SGOT) 21, Alanine Ami notransferase (ALT/SGPT) 37, Alkaline Phosphatase 75, Troponin I < 0.028, B-Type Natriuretic Peptide 39.2, Total Protein 6.5, Albumin 4.0, Procalcitonin 0.03 10/27/20 06:38: White Blood Count 7.4, Red Blood Count 4.73, Hemoglobin 14.3, Hematocrit 42, Mean Corpuscular Volume 89, Mean Corpuscular Hemoglobin 30, Mean Corpuscular Hemoglobin Concent 34, Red Cell Distribution Width 12.7, Platelet Count 330, Mean Platelet Volume 8.6L, Immature Granulocyte % (Auto) 3, Neutrophils (%) (Auto) 65, Lymphocytes (%) (Auto) 25, Monocytes (%) (Auto) 7, Eosinophils (%) (Auto) 1, Basophils (%) (Auto) 0, Neutrophils # (Auto) 4.8, Lymphocytes # (Auto) 1.8, Monocytes # (Auto) 0.5, Eosinophils # (Auto) 0.1, Basophils # (Auto) 0.0, Immature Granulocyte # (Auto) 0.2H, Sodium Level 136, Potassium Level 3.6, Chloride Level 102, Carbon Dioxide Level 21, Anion Gap 13, Blood Urea Nitrogen 21H, Creatinine 0.80, Estimat Glomerular Filtration Rate > 60, BUN/Creatinine Ratio 26, Glucose Level 104, Calcium Level 8.1L, Corrected Calcium 8.4L, Total Bilirubin 0.3, Aspartate Amino Transf (AST/SGOT) 17, Alanine Aminotransferase (ALT/SGPT) 33, Alkaline Phosphatase 66, Total Protein 5.8L, Albumin 3.6 Microbiology 10/26/20 Mycobacterial Culture - Preliminary, Resulted Pending Labs Microbiology Date/Time Source Procedure Growth Status 10/26/20 08:01 Bronchial Lavage (Bal) Right Middle Lobe Mycobacterial Culture - Preliminary Resulted 10/26/20 08:01 Bronchial Lavage (Bal) Right Middle Lobe Gram Stain - Final Resulted 10/26/20 08:01 Bronchial Lavage (Bal) Right Middle Lobe Bronchial Culture - Final No growth Resulted 10/26/20 08:01 Bronchial Lavage (Bal) Right Middle Lobe Fungal Culture 1 - Preliminary Resulted 10/26/20 08:00 Bronch Washings Bilateral Mycobacterial Culture - Preliminary Resulted 10/26/20 08:00 Bronch Washings Bilateral Gram Stain - Final Resulted 10/26/20 08:00 Bronchial Culture - Final Usual upper respiratory dianne Resulted 10/26/20 08:00 Bronch Washings Bilateral Fungal Culture 1 - Preliminary Resulted Laboratory Tests 10/26/20 10:51: White Blood Count 8.8, Red Blood Count 4.98, Hemoglobin 14.9, Hematocrit 44, Mean Corpuscular Volume 89, Mean Corpuscular Hemoglobin 30, Mean Corpuscular Hemoglobin Concent 34, Red Cell Distribution Width 12.7, Platelet Count 350, Mean Platelet Volume 8.8, Immature Granulocyte % (Auto) 2, Neutrophils (%) (Auto) 77, Lymphocytes (%) (Auto) 14, Monocytes (%) (Auto) 6, Eosinophils (%) (Auto) 1, Basophils (%) (Auto) 1, Neutrophils # (Auto) 6.8, Lymphocytes # (Auto) 1.2, Monocytes # (Auto) 0.5, Eosinophils # (Auto) 0.1, Basophils # (Auto) 0.0, Immature Granulocyte # (Auto) 0.2, D-Dimer < 0.27, Sodium Level 136, Potassium Level 4.3, Chloride Level 101, Carbon Dioxide Level 23, Anion Gap 12, Blood Urea Nitrogen 18, Creatinine 0.79, Estimat Glomerular Filtration Rate > 60, BUN/Creatinine Ratio 23, Glucose Level 98, Mean Blood Glucose 120, Hemoglobin A1c 5.8, Lactic Acid Level 1.73, Calcium Level 8.3, Corrected Calcium 8.3, Total Bilirubin 0.5, Aspartate Amino Transf (AST/SGOT) 21, Alanine Aminotransferase (ALT/SGPT) 37, Alkaline Phosphatase 75, Troponin I < 0.028, B-Type Natriuretic Peptide 39.2, Total Protein 6.5, Albumin 4.0, Procalcitonin 0.03 10/27/20 06:38: White Blood Count 7.4, Red Blood Count 4.73, Hemoglobin 14.3, Hematocrit 42, Mean Corpuscular Volume 89, Mean Corpuscular Hemoglobin 30, Mean Corpuscular Hemoglobin Concent 34, Red Cell Distribution Width 12.7, Platelet Count 330, Mean Platelet Volume 8.6, Immature Granulocyte % (Auto) 3, Neutrophils (%) (Auto) 65, Lymphocytes (%) (Auto) 25, Monocytes (%) (Auto) 7, Eosinophils (%) (Auto) 1, Basophils (%) (Auto) 0, Neutrophils # (Auto) 4.8, Lymphocytes # (Auto) 1.8, Monocytes # (Auto) 0.5, Eosinophils # (Auto) 0.1, Basophils # (Auto) 0.0, Immature Granulocyte # (Auto) 0.2, Sodium Level 136, Potassium Level 3.6, Chloride Level 102, Carbon Dioxide Level 21, Anion Gap 13, Blood Urea Nitrogen 21, Creatinine 0.80, Estimat Glomerular Filtration Rate > 60, BUN/Creatinine Ratio 26, Glucose Level 104, Calcium Level 8.1, Corrected Calcium 8.4, Total B ilirubin 0.3, Aspartate Amino Transf (AST/SGOT) 17, Alanine Aminotransferase (ALT/SGPT) 33, Alkaline Phosphatase 66, Total Protein 5.8, Albumin 3.6 Discharge Home Medications: Active Scripts Active Prednisone 10 Mg Tab.ds.pk 10 Mg PO DAILY Take 6 tabs(60mg)daily,decrease by 1 tab(10MG)daily. Fluticasone Propionate 16 Gm [place].susp 0 [place] NS DAILY Montelukast Sodium 10 Mg Tablet 10 Mg PO HS Fluticasone-Salmeterol 113-14 (Fluticasone/Salmeterol) 1 Each Aer.pow.ba 0 Each IH RTBID Iprat-Albut 0.5-3(2.5) mg/3 ml (Ipratropium/Albuterol Sulfate) 3 Ml Ampul.neb 3 Ml INH RTTID Diflucan (Fluconazole) 100 Mg Tablet 100 Mg PO DAILY Cefdinir 300 Mg Capsule 300 Mg PO BID Loratadine 10 Mg Tablet 10 Mg PO BID Banophen (Diphenhydramine HCl) 25 Mg Tablet 25 Mg PO HS Reported Sucralfate 1 Gm Tablet 1 Gm PO ACHS Pantoprazole Sodium 40 Mg Tablet.dr 40 Mg PO DAILY Reglan (Metoclopramide HCl) 5 Mg Tablet 5 Mg PO DAILY PRN Losartan Potassium 100 Mg Tablet 100 Mg PO DAILY Instructions to patient/family Please see electronic discharge instructions given to patient. VANESSA MAE DO Oct 28, 2020 11:12
--- NOTE | 2020-10-28 11:20 | Progress Note ---
ANGI POSADAS MED STUDENT 10/28/20 1120: Progress Note CC: Frequent atrial premature contractions; Wandering atrial pacemaker and ELMER HPI: Mr. Castillo is a 64yoWM clinic pt of Dr. Francisco who is a lifetime nonsmoker with hx of HTN, GERD and hiatal hernia who was admitted for observation to cardiac stepdown after developing bradycardic rhythm with atrial bigeminy, frequent atrial premature contractions and wandering atrial pacemaker on EKG following uncomplicated bronchoscopy. He did not lose consciousness or experience any chest pain during this episode. Cardiology was consulted and performed stress test which did not identify any ischemia or notable arrhythmia. Patient trialed beta chloe but cannot tolerate due to significant bradycardia and reactive airway disease. Dr. Zelaya will arrange for a consult with EP at [facility] and in a few weeks patient will follow-up with Dr. Zelaya in clinic. Preliminary results from bronchoscopy cultures are unremarkable. Of note, Mr. Castillo was also admitted last week straight from endoscopy with acute respiratory distress after routine EGD diagnosed hiatal hernia and was just discharged earlier this week from that hospital stay. Furthermore, a week previous to that he also visited [facility] ED for dyspnea and received a full workup with negative ddimer, Covid PCR and subsequent abs, CXR, CT chest, BNP and echo. He had Flu A 4-6 wks ago and has had ongoing pulmonary complications since that time. gave history of apneic events during sleep that have been ongoing for years. Sleep study was performed and diagnosed ELMER with CRIS of 7. He will be discharged and started on treatment for ELMER, initially on autopap until he can return for official titration. Suspect long history of untreated ELMER has played a major role in newly identified arrhythmia. Patient will require close follow- up with pcp, Dr. Zelaya and referral to [facility] EP. BERTHA MAE DO 10/29/20 1040: Supervisory-Addendum Brief Verification & Attestation Participated in pt care: history, MDM, physical Personally performed: exam, history, MDM, supervision of care Care discussed with: Medical Student Procedures: n/a Results interpretation: Verified all documentation Verification and Attestation of Medical Student E/M Service A medical student performed and documented this service in my presence. I reviewed and verified all information documented by the medical student and made modifications to such information, when appropriate. I personally performed the physical exam and medical decision making. Bertha Mae, Oct 29, 2020,10:40 ANGI POSADAS MED STUDENT Oct 28, 2020 11:20 BERTHA MAE DO Oct 29, 2020 10:40
--- NOTE | 2020-10-28 11:59 | Cardiology Progress Note ---
Cardiology SOAP Progress Note Subjective: No cardiac complaints. Objective: I&O/Vital Signs 10/28/20 10/28/20 10/28/20 10/28/20 04:59 07:00 07:27 08:59 Temp 36.8 36.3 Pulse 63 58 68 Resp 18 18 B/P (MAP) 136/89 (105) 152/69 (96) Pulse Ox 97 97 95 O2 Delivery Room Air Room Air Room Air 10/28/20 00:00 Intake Total 850 ml Balance 850 ml Weight (Pounds): 199 Weight (Ounces): 0.0 Weight (Calculated Kilograms): [id number] Constitutional: AAO x 3 Respiratory: chest is bilaterally symmetric, lungs clear to auscultation Cardiovascular: regular rate-rhythm, S1 and S2 Gastrointestional: soft, audible bowel sounds Extremities: no lower extremity edema bilateral Neurologic/Psychiatric: no motor/sensory deficits, alert, normal mood/affect, oriented x 3 Skin: normal color Results/Procedures: Labs Microbiology 10/26/20 Mycobacterial Culture - Preliminary, Resulted A/P: Assessment/Dx: Frequent atrial premature contractions Wandering atrial pacemaker Reactive airway disease Bronchitis Plan: Frequent atrial premature contractions, atrial bigeminy with episodes of bradycardia induced by compensatory pause after APCs. Telemetry monitoring showing episodes of sinus bradycardia, currently in sinus rhythm with a heart rate 70 with frequent premature ventricular contractions. Cannot tolerate beta- blockers or calcium channel blockers due to the episode of bradycardia with a heart rate in the 40s. May require EP follow-up in the future. Exercise stress test was carried out on October 26, 2020, patient was able to exercise for 8 minutes on standard Alvaro protocol with appropriate improvement in his heart rate up to 130 without any significant arrhythmia. No ischemic changes were noted. SPECT images did not show any ischemia. Reactive airway disease, significant wheezing, had a bronchoscopy patient had thick white sputum bilaterally. Cultures are pending. 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 No significant infiltrate found on CT scan. There were some scarring and noncalcified nodule noted. Patient is intolerant to beta-chloe due to reactive airway disease and episodes of bradycardia. Probably underlying sleep apnea, managed by primary care team Okay to discharge, follow-up with Dr. Zelaya. Thank you for your consultation. Please call me if you have any questions. Denita Byers MD, FACP, FACC, FSCAI, FHRS, CCDS Interventional Cardiology Cardiac Electrophysiology Vascular Medicine and Endovascular Interventions Focused Exam Lactate Level 10/26/20 10:51: Lactic Acid Level 1.73 Laura BYERS MD Oct 28, 2020 11:59
== END 2020-10-28 11:10 | disposition home or self-care (01) ==
LOC: ENDO 06:43 → UNDOADMOB 10:25 → CSD 10:25 → 4TH 10-27 12:14 → UNDODISOB 10-28 12:30
PROVIDERS: ADMIT Internal Medicine; ATTEND Internal Medicine
DX: I49.1 Atrial premature depolarization (principal); J45.909 Unspecified asthma, uncomplicated; I10 Essential (primary) hypertension; K21.9 Gastro-esophageal reflux disease without esophagitis; K44.9 Diaphragmatic hernia without obstruction or gangrene; K64.9 Unspecified hemorrhoids; J32.9 Chronic sinusitis, unspecified; E78.00 Pure hypercholesterolemia, unspecified; M19.90 Unspecified osteoarthritis, unspecified site; J84.9 Interstitial pulmonary disease, unspecified; Z79.51 Long term (current) use of inhaled steroids; Z79.899 Other long term (current) drug therapy; Z95.0 Presence of cardiac pacemaker
CPT/HCPCS: 31624; 71045; 78452; 80053 ×2; 83036; 83605; 83880; 84145; 84484; 85025 ×2; 85379; 87015; 87070; 87101; 87116; 87205; 87206; 88112; 88305; 88312; 93005; 93017; 94640 ×5; 94760 ×3; A9502; G0378; G0379; G0399; 36415; 99211

== ENCOUNTER → 2020-12-29 | Outpatient (CLI) | payer MEDICARE, OTHER ==
[~2020-12-29] MED LIST changes: +RT-ALBUTEROL SULF 2.5 MG/3 ML PRE-MIX VIAL INH ONE
== END ==
LOC: RT 16:00
PROVIDERS: ATTEND Nurse Practitioner Family
DX: J98.4 Other disorders of lung (principal)
CPT/HCPCS: 94060; 94726; 94729

== ENCOUNTER 2021-05-21 07:04 | Emergency (ER) | payer MEDICARE, OTHER ==
[~2021-05-21] VITALS: Ht 175 cm; Wt 90.7 kg
[~2021-05-21 07:04] MED LIST changes: -RT-ALBUTEROL SULF 2.5 MG/3 ML PRE-MIX VIAL INH ONE
--- OUTSIDE RECORDS SUMMARY | 2021-05-21 07:08 | XMS REPORT | Clinical Summary ---
Author [facility] Address Unknown Phone Unavailable Care Team Providers Care Charge Entry Clerk Name Role Phone Self, Aravind CASTILLO PCP Source Comments Some departments are not documenting in the electronic medical record. If you d o not see the information that you expected, contact Release of Information in [facility] [employer] Information Management department at [phone] for further assistan ce in locating additional records.[facility] Allergies Comments Active Allergy Reactions Severity Noted Date Egg DIARRHEA Low 03/24/2011 Medications End Date Status Medication Sig Dispensed Refills Start Date Active ALBUTEROL IN Inhale by 0 mouth into the lungs three times daily. Active diphenhydramine HCl Take by 0 (BENADRYL PO) mouth at bedtime daily. Active fluticasone Inhale by 0 propion-salmeteroL 113 mouth into mcg-14 mcg/actuation aebs the lungs twice daily. Active fluticasone propionate Apply to 0 (FLONASE) 50 each nostril mcg/actuation nasal as directed spray, suspension daily as needed. Shake bottle gently before using. Active loratadine (CLARITIN) 10 Take 10 mg by 0 mg tablet mouth twice daily. Active losartan (COZAAR) 100 mg Take 100 mg 0 tablet by mouth daily. Active pantoprazole DR Take 40 mg by 0 (PROTONIX) 40 mg tablet mouth daily. Active sucralfate (CARAFATE) 1 Take 1 g by 0 gram tablet mouth as Needed. Take on an empty stomach. Active Problems Problem Noted Date Dyspnea 11/17/2020 Essential hypertension 11/17/2020 PVC (premature ventricular contraction) 11/17/2020 PAC (premature atrial contraction) 11/17/2020 Overview: Formatting of this note might be differ ent from the original. 11/18/2020 - Zio Patch: Ziopatch Ambul atory ECG Monitoring for approximately 7 days demonstrates: 1. Frequent premature atrial contractions with a burden of 15.4%. Oc casional premature ventricular contractions with burden of 1.7%. 2. P atient triggered events correlated with atrial bigeminal pattern and frequ ent PAC's. 3. No evidence of severe bradycardia, high grade AV block, atria l flutter, or atrial fibrillation. 4. Abnormal study due to frequent PAC's , considered low risk. Correlate and treat clinically. 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 No t asked How many drinks containing alcohol do you have on No t asked a typical day when you are drinking? How often do you have six or more drinks on one Not asked occasion? Comment: 2 drinks a week 11/18/2020 Sex Assigned at Date Recorded Male 11/16/2020 9:00 AM CDT Last Filed Vital Signs Reading Time Taken Comments Vital Sign 123/60 11/18/2020 1:44 PM CDT Blood Pressure 75 11/18/2020 1:44 PM CDT Pulse - - Temperature - - Respiratory Rate 98% 11/18/2020 1:44 PM CDT Oxygen Saturation - - Inhaled Oxygen Concentration 90.7 kg (200 lb) 11/18/2020 1:44 PM CDT Weight 175.3 cm (5' 9") 11/18/2020 1:44 PM CDT Height 29.53 11/18/2020 1:44 PM CDT Body Mass Index Plan of Treatment Health Maintenance Due Date Last Done Comments MEDICARE ANNUAL WELLNESS 1955 VISIT HIV SCREENING 12/12/1970 DTAP/TDAP VACCINES (1 - 12/12/1973 Tdap) HEPATITIS C SCREENING 12/12/1973 PHYSICAL (COMPREHENSIVE) 12/12/1973 EXAM COLORECTAL CANCER 12/12/2005 SCREENING SHINGLES RECOMBINANT 12/12/2005 VACCINE (1 of 2) PNEUMONIA (PPSV23) 12/12/2020 VACCINE (1 of 1 - PPSV23) INFLUENZA VACCINE 02/12/2021 Results Not on filefrom Last 3 Months Insurance Type Payer Benefit Subscriber ID Effective Phone Address Plan / Dates Group Medicare MEDICARE MEDICARE [id number] 2020-P PART A AND resent B AETNA AETNA [id number] 2020-P SUPPLEMENT resent ([place]) [place] [address] Advance Directives Patient Auditor In Charge Explanation Type Date Recorded Advance Directive/DPOA
[2021-05-21] MEDS ORDERED: fentaNYL INJ 100 MCG/2 ML AMP IVP ONE (07:30)
[2021-05-21] MEDS ORDERED: TETRACAINE 0.5% OPHTH SOLN 4 ML BTL (SINGLE DOSE ONLY) OU ONE (07:30)
[2021-05-21] MEDS ORDERED: LOSARTAN 100 MG (COZAAR) TABLET PO STA (07:42)
[2021-05-21 07:47] LABS: BASOPHILS # (AUTO) 0.1 10^3/uL (0.0-0.1); BASOPHILS % (AUTO) 2 % (0-10); EOSINOPHILS # (AUTO) 0.8 10^3/uL (0.0-0.3); EOSINOPHILS % (AUTO) 16 % (0-10); HEMATOCRIT 44 % (40-54); HEMOGLOBIN 15.3 g/dL (13.3-17.7); LYMPHOCYTES # (AUTO) 1.1 10^3/uL (1.0-4.0); LYMPHOCYTES % (AUTO) 24 % (12-44); MEAN CORPUSCULAR HEMOGLOBIN 30 pg (25-34); MEAN CORPUSCULAR HGB CONC 35 g/dL (32-36); MEAN CORPUSCULAR VOLUME 87 fL (80-99); MEAN PLATELET VOLUME 8.8 fL (9.0-12.2); MONOCYTES # (AUTO) 0.4 10^3/uL (0.0-1.0); MONOCYTES % (AUTO) 9 % (0-12); NEUTROPHILS # (AUTO) 2.4 10^3/uL (1.8-7.8); NEUTROPHILS % (AUTO) 50 % (42-75); PLATELET COUNT 303 10^3/uL (130-400); WHITE BLOOD COUNT 4.7 10^3/uL (4.3-11.0)
--- NOTE | 2021-05-21 07:49 | ED General ---
General Chief Complaint: Head/Cervical Problems Stated Complaint: MIGRAINE Nursing Triage Note: pt reports r sided smith since night. pt also reports pressure behind r eye. pt states he saw an opthalmagist yesterday and he was told his eye checked out ok. Source of Information: Patient, Family, Old Records Exam Limitations: No Limitations History of Present Illness Date Seen by Provider: May 21, 2021 Time Seen by Provider: 07:10 Initial Comments This 65-year-old gentleman presents to the emergency room with intense right- sided headache that has been progressive for the past 4 days. His headache started on May 18 as a pressure behind the right eye. On Saturday he had an injury to the eye when he was spraying out a bucket box loader. He had the nozzle turned around backwards and shot himself in the eye with a stream of water. Eye irritation worsened and he presented to Dr. Mohan (shelf drier operator) yesterday for evaluation. He reports the work-up was unremarkable and the intraocular pressures were normal as far as he knows. A fluorescein exam was performed and no injuries were identified per patient report. He does describe some minor blurry vision in both eyes. Visual acuity was 20/20 with both eyes, 20/25 on the left, and 20/50 on the right. Since his eye exam yesterday he has now developed some swelling and erythema around the eyelids. His headache extends from the eye to the temporal region and wraps around behind the ear toward the occiput. He also has a small patch of rash on the right frontal scalp about the size of a nickel that is slightly raised and erythematous and tender to the touch. He thinks he may have been bit by a brown recluse while getting a box in his basement. He tried taking Tylenol, ibuprofen, and 2 doses of pseudoephedrine last night. Those therapies were not effective. He is notably hypertensive today. He has arrhythmia for which she is monitored by Dr. Zelaya. He takes no blood thinning medications. He describes no head trauma. He fell off balance yesterday but has no acute focal neurologic deficits this morning. He has history of chronic sinusitis but has since had surgery to treat this. He is concerned about possible glaucoma because he takes Trelegy which is known to have an adverse reaction of glaucoma. He describes photosensitivity. Allergies and Home Medications Allergies Coded Allergies: metoprolol (Verified Adverse Reaction, Severe, Bradycardia, 05/21/21) Patient has severe bradycardia with beta blockers and needs to avoid this class of medications. Patient Home Medication List Home Medication List Reviewed: Yes Amoxicillin/Potassium Clav (Augmentin 875-125 Tablet) 1 Each Tablet, 1 EACH PO BID Prescribed by: HERBERTH DIGSG on 05/21/21908 Cefdinir (Cefdinir) 300 Mg Capsule, 300 MG PO BID Prescribed by: VANESSA MAE on 10/24/20956 Diphenhydramine HCl (Banophen) 25 Mg Tablet, 25 MG PO HS Prescribed by: VANESSA MAE on 10/24/20956 Docusate Sodium (Colace) 100 Mg Capsule, 1-2 CAP PO DAILY Prescribed by: HERBERTH DIGGS on 05/21/21908 Fluconazole (Diflucan) 100 Mg Tablet, 100 MG PO DAILY Prescribed by: VANESSA MAE on 10/24/20956 Fluticasone Propionate (Fluticasone Propionate) 16 Gm [place].susp, 0 SPRAY NS DAILY Prescribed by: VANESSA MAE on 10/24/20956 Fluticasone/Salmeterol (Fluticasone-Salmeterol 113-14) 1 Each Aer.pow.ba, 0 EACH IH RTBID Prescribed by: VANESSA MAE on 10/24/20956 Hydrocodone/Acetaminophen (Hydrocodone-Acetamin 5-325 mg) 1 Each Tablet, 1-2 TAB PO Q4H PRN for PAIN-MODERATE (5-7) Prescribed by: HERBERTH DIGGS on 05/21/21909 Ipratropium/Albuterol Sulfate (Iprat-Albut 0.5-3(2.5) mg/3 ml) 3 Ml Ampul.neb, 3 ML INH RTTID Prescribed by: VANESSA MAE on 10/24/20956 Loratadine (Loratadine) 10 Mg Tablet, 10 MG PO BID Prescribed by: VANESSA MAE on 10/24/20956 Losartan Potassium (Losartan Potassium) 100 Mg Tablet, 100 MG PO DAILY, (Reported) Entered as Reported by: ZITA DUDLEY on 08/18/18 1420 Metoclopramide HCl (Reglan) 5 Mg Tablet, 5 MG PO DAILY PRN, (Reported) Entered as Reported by: FELIX HAQ on 10/19/20954 Montelukast Sodium (Montelukast Sodium) 10 Mg Tablet, 10 MG PO HS Prescribed by: VANESSA MAE on 10/24/20956 Ondansetron (Ondansetron Odt) 4 Mg Tab.rapdis, 4 MG SL Q4H PRN for NAUSEA/VOMITING Prescribed by: HERBERTH DIGGS on 05/21/21 1016 Pantoprazole Sodium (Pantoprazole Sodium) 40 Mg Tablet.dr, 40 MG PO DAILY, (Reported) Entered as Reported by: FELIX HAQ on 10/19/20954 Prednisone (Prednisone) 10 Mg Tab.ds.pk, 10 MG PO DAILY Prescribed by: VANESSA MAE on 10/24/20956 Sucralfate (Sucralfate) 1 Gm Tablet, 1 GM PO ACHS, (Reported) Entered as Reported by: FELIX HAQ on 10/19/20954 Valacyclovir HCl (Valacyclovir) 1,000 Mg Tablet, 1,000 MG PO TID Prescribed by: HERBERTH DIGGS on 05/21/21 0909 Review of Systems Review of Systems Constitutional: no symptoms reported EENTM: see HPI Respiratory: no symptoms reported Cardiovascular: see HPI Gastrointestinal: no symptoms reported; No nausea, No vomiting Genitourinary: no symptoms reported Musculoskeletal: no symptoms reported Skin: see HPI Psychiatric/Neurological: See HPI Hematologic/Lymphatic: No Symptoms Reported Immunological/Allergic: no symptoms reported Past Sgqggjc-Sbyeao-Prmyyk Hx Patient Social History Tobacco Use?: No Substance use?: No Alcohol Use?: Yes Alcohol Frequency: Once in a while Pt feels they are or have been: No Seasonal Allergies Seasonal Allergies: Yes Past Medical History Surgery/Hospitalization HX: sx: r arm, tonsils, carpal tunnel, pmh: asthma, irregular hr, tick disease Surgeries: Yes (sinus sx, arm bicep sx, hemorrhoidectomy, ) Orthopedic Respiratory: Yes Asthma, COPD Currently Using CPAP: No Cardiac: Yes High Cholesterol, Hypertension Neurological: No Reproductive Disorders: No Genitourinary: No Gastrointestinal: Yes Gastroesophageal Reflux, Hiatal Hernia Musculoskeletal: Yes (Biceps injury) Arthritis, Fractures (FX T1 vertebae) Endocrine: No HEENT: Yes (chronic sinusitis) Cancer: No Psychosocial: No Integumentary: No Blood Disorders: Yes (Alpha gal red meat allergy) Family Medical History HTN Physical Exam Vital Signs Vital Signs - First Documented 05/21/21 07:19 Temp 36.1 Pulse 86 Resp 12 B/P (MAP) 161/97 (118) Pulse Ox 94 Capillary Refill : Less Than 3 Seconds Height, Weight, BMI Height: 5'9.00" Weight: 199lbs. 0.0oz. [id number]; 29.00 BMI Method: General Appearance: WD/WN, Mild Distress HEENT: PERRL/EOMI, Pharynx Normal, Other (Left TM normal. Right TM occluded by cerumen impaction. Both eyes 20/20, right by 20/50, left eye 20/25) Neck: Normal Inspection; No JVD Respiratory: Lungs Clear, Normal Breath Sounds, No Accessory Muscle Use Cardiovascular: No Edema, No Murmur, Irregularly Irregular Gastrointestinal: Soft; No Distended Extremity: Normal Inspection, No Pedal Edema Neurologic/Psychiatric: Alert, Oriented x3, No Motor/Sensory Deficits, Normal Mood/Affect, margin analyst II-XII Norm as Tested Skin: Normal Color, Warm/Dry, Rash (Small nickel-sized patch of rash on the right frontal scalp that is mildly erythematous and raised and tender to the touch.) Progress/Results/Core Measures Suspected Sepsis SIRS Temperature: Pulse: 86 Respiratory Rate: 12 Laboratory Tests 05/21/21 07:41: White Blood Count 4.7 Blood Pressure 161 /97 Mean: 118 Laboratory Tests 05/21/21 07:41: Creatinine 0.82, Platelet Count 303, Total Bilirubin 0.6 Results/Orders Lab Results Laboratory Tests Test 05/21/21 07:41 Range/Units White Blood Count 4.7 4.3-11.0 10^3/uL Red Blood Count 5.05 4.30-5.52 10^6/uL Hemoglobin 15.3 13.3-17.7 g/dL Hematocrit 44 40-54 % Mean Corpuscular Volume 87 80-99 fL Mean Corpuscular Hemoglobin 30 25-34 pg Mean Corpuscular Hemoglobin Concent 35 32-36 g/dL Red Cell Distribution Width 12.7 10.0-14.5 % Platelet Count 303 130-400 10^3/uL Mean Platelet Volume 8.8 L 9.0-12.2 fL Immature Granulocyte % (Auto) 0 % Neutrophils (%) (Auto) 50 42-75 % Lymphocytes (%) (Auto) 24 12-44 % Monocytes (%) (Auto) 9 0-12 % Eosinophils (%) (Auto) 16 H 0-10 % Basophils (%) (Auto) 2 0-10 % Neutrophils # (Auto) 2.4 1.8-7.8 10^3/uL Lymphocytes # (Auto) 1.1 1.0-4.0 10^3/uL Monocytes # (Auto) 0.4 0.0-1.0 10^3/uL Eosinophils # (Auto) 0.8 H 0.0-0.3 10^3/uL Basophils # (Auto) 0.1 0.0-0.1 10^3/uL Immature Granulocyte # (Auto) 0.0 0.0-0.1 10^3/uL Neutrophils % (Manual) 48 % Lymphocytes % (Manual) 14 % Monocytes % (Manual) 8 % Eosinophils % (Manual) 19 % Basophils % (Manual) 1 % Atypical Lymphocytes 10 % Polychromasia SLIGHT Erythrocyte Sedimentation Rate 8 0-30 MM/HR Sodium Level 137 135-145 MMOL/L Potassium Level 3.9 3.6-5.0 MMOL/L Chloride Level 104 98-107 MMOL/L Carbon Dioxide Level 21 21-32 MMOL/L Anion Gap 12 5-14 MMOL/L Blood Urea Nitrogen 12 7-18 MG/DL Creatinine 0.82 0.60-1.30 MG/DL Estimat Glomerular Filtration Rate 94 BUN/Creatinine Ratio 15 Glucose Level 124 H 70-105 MG/DL Calcium Level 9.1 8.5-10.1 MG/DL Corrected Calcium 8.9 8.5-10.1 MG/DL Total Bilirubin 0.6 0.1-1.0 MG/DL Aspartate Amino Transf (AST/SGOT) 22 5-34 U/L Alanine Aminotransferase (ALT/SGPT) 29 0-55 U/L Alkaline Phosphatase 71 40-136 U/L C-Reactive Protein High Sensitivity 0.39 0.00-0.50 MG/DL Total Protein 6.7 6.4-8.2 GM/DL Albumin 4.3 3.2-4.5 GM/DL TSH [place] Testing 1.47 0.35-4.94 UIU/ML My Orders Orders - HERBERTH SRIVASTAVA MD Cbc With Automated Diff (05/21/21 07:27) Comprehensive Metabolic Panel (05/21/21 07:27) Hs C Reactive Protein (05/21/21 07:27) Thyroid Analyzer (05/21/21 07:27) Erythrocyte Sedimentation Rate (05/21/21 07:27) Ed Iv/Invasive Line Start (05/21/21 07:27) Monitor-Rhythm Ecg Trace Only (05/21/21 07:27) Tetracaine 0.5% Ophth Nessa Sdv (Tetracai (05/21/21 07:30) Ct Head Wo (05/21/21 07:28) Fentanyl Inj (Sublimaze Injection) (05/21/21 07:30) Losartan Tablet (Cozaar Tablet) (05/21/21 07:42) Hydrochlorothiazide Cap/Tablet (Hctz Cap (05/21/21 07:42) Manual Differential (05/21/21 07:41) Ondansetron Injection (Zofran Injectio (05/21/21 08:00) Morphine Injection (Morphine Injection (05/21/21 08:26) Docusate Sodium Oral Solution (Colace Or (05/21/21 08:45) Ondansetron Injection (Zofran Injectio (05/21/21 10:00) Medications Given in ED Current Medications Medications Dose Ordered Sig/Eliu Route Start Time Stop Time Status Last Admin Dose Admin Docusate Sodium 50 mg ONCE ONCE EACH EAR 05/21/21 08:45 05/21/21 08:46 DC 05/21/21 08:59 50 MG Fentanyl Citrate 50 mcg ONCE ONCE IVP 05/21/21 07:30 05/21/21 07:31 DC 05/21/21 07:39 50 MCG Ondansetron HCl 4 mg ONCE ONCE IVP 05/21/21 08:00 05/21/21 08:01 DC 05/21/21 08:04 4 MG Ondansetron HCl 4 mg ONCE ONCE IVP 05/21/21 10:00 05/21/21 10:01 DC 05/21/21 10:06 4 MG Tetracaine HCl 4 ml ONCE ONCE OU 05/21/21 07:30 11/7/21 07:31 DC 05/21/21 08:32 4 ML Vital Signs/I&O 05/21/21 05/21/21 07:19 10:17 Temp 36.1 Pulse 86 58 Resp 12 18 B/P (MAP) 161/97 (118) 138/84 Pulse Ox 94 98 Capillary Refill : Less Than 3 Seconds Blood Pressure Mean: 118 Progress Note #1: Time: 07:55 Progress Note Patient was seen and examined. Pain is being treated with fentanyl. Work-up is being pursued with labs and CT of the head. With the rash on his frontal scalp shingles is a definite consideration. However, we will use this as a diagnosis of exclusion. Patient has been advised against using pseudoephedrine with his arrhythmia and hypertension. Progress Note #2: Progress Note In the absence of other explanation, shingles is the most likely cause of his pain. He was strongly advised to follow-up with Dr. Mohan in a day or 2. He was started on valacyclovir and prescribed hydrocodone for pain. We also addressed the cerumen impaction in the right ear. The impaction was soaked with Colace and then irrigated. First normal saline was used with a filter tip. Then when that was not successful it was irrigated again with warm water with hydrogen peroxide. This brought the plug to the opening of the canal where it was then removed with a cerumen spatula. Patient had immediate relief of ear pressure and hearing deficit. This process made him nauseated and he required more Zofran. Pain was further treated with morphine. Patient received his losartan dose in the ER to help with his hypertension as well. Patient was noted to have arrhythmia on the pulse oximeter. He was placed on the monitor car operator and found to have frequent PVCs. Patient is aware of this problem and states Dr. Zelaya is aware of it as well. Patient's eye pain was evaluated with John-Pen and intraocular pressure was found to be 19. CT of the head revealed sinusitis and antibiotics were prescribed. See discharge instructions for more discussion. Diagnostic Imaging Diagonstic Imaging: CT Plain Films/CT/US/NM/MRI: head Comments CT head viewed by me and report reviewed. See report below: NAME: HAWA WHEAT [facility] REC#: [id number] PT STATUS: REG ER : 1955 PHYSICIAN: HERBERTH SRIVASTAVA MD ADMIT DATE: 05/21/21/ER Signed Date of Exam:05/21/21 CT HEAD WO EXAMINATION: CT head without contrast. TECHNIQUE: Multiple contiguous axial images were obtained through the brain without the use of intravenous contrast. All CT scans use one or more of the following dose optimizing techniques: automated exposure control, MA and/or KvP adjustment based on patient size and exam type or iterative reconstruction. HISTORY: Headache. Vision changes. Pain behind the right eye. COMPARISON: 08/01/2018. FINDINGS: No large acute territorial ischemia, mass, or hemorrhage. No midline shift or mass effect. The ventricles, cortical sulci, and basilar cisterns are patent and unremarkable. The orbits are normal. Retained secretions and mucosal thickening are seen throughout the paranasal sinuses. Mastoid air cells are clear. No soft tissue abnormality is seen. No osseus lesions or fractures are seen. IMPRESSION: 1. No large acute territorial ischemia, mass, or hemorrhage. 2. Pansinusitis. Dictated by: Dictated on workstation # [id number] Dict: 05/21/21804 Trans: 05/21/21 08[facility] [phone] Interpreted by: BERNADETTE RINCON DO Electronically signed by: BERNADETTE RINCON DO 05/21/21 0811 Departure Impression Primary Impression: Right-sided headache Additional Impressions: Impacted cerumen, right ear Shingles Qualified Codes: B02.31 - Zoster conjunctivitis Chronic sinusitis Qualified Codes: J32.4 - Chronic pansinusitis Disposition: 01 HOME, SELF-CARE Condition: Improved Departure-Patient Inst. Decision time for Depature: 09:04 Referrals: SELFVELIA MD (PCP/Family) Primary Care Physician Patient Instructions: Ear Wax Impaction, Shingles Add. Discharge Instructions: In the absence of other explanation, it is likely your symptoms are related to shingles. Start valacyclovir immediately and complete the entire course as prescribed. You may also have some sinusitis or eye infection. For this reason also take Augmentin as prescribed. You may use ibuprofen up to 600 mg every 6 hours as needed for pain. Use hydrocodone as prescribed for pain not controlled by ibuprofen. You may wish to use a stool softener such as Colace while taking hydrocodone to prevent constipation. Please follow-up with Dr. Mohan tomorrow morning. You should have a repeat eye exam within the next 48 hours. If you are not able to get in with Dr. Mohan, you may try the [facility]. Please also follow-up with your primary care provider within the next 2 weeks. Call on Saturday for an appointment. Expect the rash to spread for a few days even with treatment. It may take weeks for complete recovery. Call with questions or concerns. Return to care if you have worsening symptoms or develop new symptoms such as fever, worsening vision, other neurologic problems, etc. All discharge instructions reviewed with patient and/or family. Voiced understanding. Scripts Ondansetron (Ondansetron Odt) 4 Mg Tab.rapdis 4 MG SL Q4H PRN for NAUSEA/VOMITING, #10 TAB Prov: HERBERTH SRIVASTAVA MD 05/21/21 Docusate Sodium (Colace) 100 Mg Capsule 1-2 CAP PO DAILY, #20 CAP Prov: HERBERTH SRIVASTAVA MD 05/21/21 Hydrocodone/Acetaminophen (Hydrocodone-Acetamin 5-325 mg) 1 Each Tablet 1-2 TAB PO Q4H PRN for PAIN-MODERATE (5-7), #20 TAB Prov: HERBERTH SRIVASTAVA MD 05/21/21 Amoxicillin/Potassium Clav (Augmentin 875-125 Tablet) 1 Each Tablet 1 EACH PO BID, #28 TAB 0 Refills Prov: HERBERTH SRIVASTAVA MD 05/21/21 Valacyclovir HCl (Valacyclovir) 1,000 Mg Tablet 1000 MG PO TID, #21 TAB Prov: HERBERTH SRIVASTAVA MD 05/21/21 Copy Copies To 1: VELIA OLSON MD Copies To 2: KUMAR ZELAYA MD, JOSHUA T MD May 21, 2021 07:49
[2021-05-21] MEDS ORDERED: ONDANSETRON 4 MG/2 ML (SDV) Z0FRAN IVP ONE ×2 (08:00→10:00)
--- NOTE | 2021-05-21 08:08 | Diagnostic Imaging Report ---
EXAMINATION: CT head without contrast. TECHNIQUE: Multiple contiguous axial images were obtained through the brain without the use of intravenous contrast. All CT scans use one or more of the following dose optimizing techniques: automated exposure control, MA and/or KvP adjustment based on patient size and exam type or iterative reconstruction. HISTORY: Headache. Vision changes. Pain behind the right eye. COMPARISON: 08/01/2018. FINDINGS: No large acute territorial ischemia, mass, or hemorrhage. No midline shift or mass effect. The ventricles, cortical sulci, and basilar cisterns are patent and unremarkable. The orbits are normal. Retained secretions and mucosal thickening are seen throughout the paranasal sinuses. Mastoid air cells are clear. No soft tissue abnormality is seen. No osseus lesions or fractures are seen. IMPRESSION: 1. No large acute territorial ischemia, mass, or hemorrhage. 2. Pansinusitis. Dictated by: Dictated on workstation # [id number]
[2021-05-21 08:10] LABS: ATYPICAL LYMPHOCYTES 10 %; BASOPHILS % (MANUAL) 1 %; EOSINOPHILS % (MANUAL) 19 %; LYMPHOCYTES % (MANUAL) 14 %; MONOCYTES % (MANUAL) 8 %; NEUTROPHILS % (MANUAL) 48 %
[2021-05-21 08:11] LABS: POLYCHROMASIA SLIGHT
[2021-05-21 08:12] LABS: ERYTHROCYTE SEDIMENTATION RATE 8 MM/HR (0-30)
[2021-05-21 08:13] LABS: ALBUMIN 4.3 GM/DL (3.2-4.5); BILIRUBIN,TOTAL 0.6 MG/DL (0.1-1.0); CALCIUM 9.1 MG/DL (8.5-10.1); CREATININE SERUM 0.82 MG/DL (0.60-1.30); POTASSIUM 3.9 MMOL/L (3.6-5.0); TOTAL PROTEIN 6.7 GM/DL (6.4-8.2)
[2021-05-21] MEDS ORDERED: morphine INJ 10 MG/ML 1ML (SYR OR VIAL) IVP STA (08:26)
[2021-05-21 08:33] LABS: TSH (THYROID ANALYZER) 1.47 UIU/ML (0.35-4.94)
[2021-05-21] MEDS ORDERED: DOCUSATE SODIUM 10 MG/ML 10 ML UDC (COLACE) EACH EAR ONE (08:45)
[2021-05-21] MEDS ORDERED: DOCU-143 PO (09:09)
[2021-05-21] MEDS ORDERED: ACHD5005 PO (09:09)
[2021-05-21] MEDS ORDERED: VALA10007 PO (09:09)
[2021-05-21] MEDS ORDERED: AMOX-358 PO (09:09)
[2021-05-21] MEDS ORDERED: ONDA4TAB11 SL (10:16)
[2021-05-21 10:17] VITALS: BP 138/84
== END 2021-05-21 10:16 | disposition home or self-care (01) ==
LOC: EDUNIT# 07:04 → ER 07:05
DX: R51.9 Headache, unspecified (principal); H61.21 Impacted cerumen, right ear; B02.9 Zoster without complications; J32.9 Chronic sinusitis, unspecified; J44.9 Chronic obstructive pulmonary disease, unspecified; I10 Essential (primary) hypertension; K21.9 Gastro-esophageal reflux disease without esophagitis; Z79.899 Other long term (current) drug therapy
CPT/HCPCS: 36415; 70450; 80053; 84443; 85007; 85027; 85652; 86141; 93041; 96374; 96375; 96376

== ENCOUNTER 2021-06-15 12:26 | Outpatient (CLI) | payer MEDICARE, OTHER ==
[~2021-06-15] VITALS: Ht 175.3 cm; Wt 88.5 kg
[2021-06-15 12:15] VITALS: BP 120/68
[~2021-06-15 12:26] MED LIST changes: +ACHD5005 PO; +AMOX-358 PO; +DOCU-143 PO; +MONT-40 PO; -MONT10TA32 PO; +ONDA4TAB11 SL; +VALA10007 PO
[2021-06-15] MEDS ORDERED: diphenhydrAMINE 50 MG/ML INJ (BENADRYL) IV PRN (13:30)
[2021-06-15] MEDS ORDERED: ACETAMINOPHEN 500 MG TAB (TYLENOL) PO PRN (13:30)
[2021-06-15] MEDS ORDERED: ONDANSETRON 4 MG/2 ML (SDV) Z0FRAN IV PRN (13:30)
[2021-06-15] MEDS ORDERED: EPINEPHrine INJECTION 1 MG/ML AMP IM PRN (13:30)
[2021-06-15] MEDS ORDERED: CASIRIVIMAB/IMDEVIMAB 1,200 MG in NS (IVPB) 250 ML IV ONE (13:30)
[2021-06-15 14:23] VITALS: BP 124/72
== END 2021-06-15 15:10 | disposition home or self-care (01) ==
LOC: INFUSION 12:26
PROVIDERS: ATTEND Family Medicine
DX: U07.1 COVID-19 (principal)

== ENCOUNTER 2021-06-17 09:54 | Emergency (ER) | payer MEDICARE, OTHER ==
[~2021-06-17] VITALS: Ht 177 cm; Wt 83.9 kg
--- NOTE | 2021-06-17 10:33 | ED General ---
General Stated Complaint: SHINGLES; COVID+ Source of Information: Patient Exam Limitations: No Limitations History of Present Illness Date Seen by Provider: Jun 17, 2021 Time Seen by Provider: 10:01 Initial Comments 65yoM with PMH of asthma coming in due to right-sided face pain. Of note, the patient was in the ER on 05/21 for headache on the side of his face. Diagnosed with shingles and sinusitis. Received antibiotics and valacyclovir. Workup unremarkable including normal CT head, WBC, ESR, CRP. Had seen an web support engineer the day before with normal fluorescine exam. Had normal intraocular pressure testing both days. The pain has been continuous since then. He has since followed up with an criminal investigative agent and was diagnosed with herpes zoster ophthalmicus. He is now completing another round of valacyclovir with the last dose tomorrow. He is supposed to receive an antiviral eyedrop, but the pharmacy is having trouble acquiring this. He was also supposed to follow-up with the criminal investigative agent today, but unfortunately was diagnosed with COVID roughly 9 days ago. He did receive the Regeneron therapy, and is currently asymptomatic from a Covid standpoint. The pain in his face is severe, constant, electric-like, nothing seems to make it better or worse. He has tried NSAIDs, hydrocodone, gabapentin, Phenergan all with little help. He says he just wants some relief. The pain is along with the V1 distribution of his right side of his face going up his head. It hurts just to touch. Denies any fever, chest pain, shortness of breath, abdominal pain, current vision changes, hearing changes, nausea, vomiting, diarrhea, weakness, numbness, or any other concerns. He says the rash is completely gone. Allergies and Home Medications Allergies Coded Allergies: metoprolol (Verified Adverse Reaction, Severe, Bradycardia, 06/15/21) Patient has severe bradycardia with beta blockers and needs to avoid this class of medications. Patient Home Medication List Home Medication List Reviewed: Yes Amoxicillin/Potassium Clav (Augmentin 875-125 Tablet) 1 Each Tablet, 1 EACH PO BID Prescribed by: HERBERTH DIGGS on 05/21/21 0909 Carbamazepine (Carbamazepine) 200 Mg Tablet, 100 MG PO DAILY Prescribed by: JOHNNY DEAN on 06/17/21 1115 Cefdinir (Cefdinir) 300 Mg Capsule, 300 MG PO BID Prescribed by: VANESSA MAE on 10/24/20956 Diphenhydramine HCl (Banophen) 25 Mg Tablet, 25 MG PO HS Prescribed by: VANESSA MAE on 10/24/20956 Docusate Sodium (Colace) 100 Mg Capsule, 1-2 CAP PO DAILY Prescribed by: HERBERTH DIGGS on 05/21/21908 Fluconazole (Diflucan) 100 Mg Tablet, 100 MG PO DAILY Prescribed by: VANESSA MAE on 10/24/20956 Fluticasone Propionate (Fluticasone Propionate) 16 Gm [place].susp, 0 SPRAY NS DAILY Prescribed by: VANESSA MAE on 10/24/20956 Fluticasone/Salmeterol (Fluticasone-Salmeterol 113-14) 1 Each Aer.pow.ba, 0 EACH IH RTBID Prescribed by: VANESSA MAE on 10/24/20956 Hydrocodone/Acetaminophen (Hydrocodone-Acetamin 5-325 mg) 1 Each Tablet, 1-2 TAB PO Q4H PRN for PAIN-MODERATE (5-7) Prescribed by: HERBERTH DIGGS on 05/21/21909 Ipratropium/Albuterol Sulfate (Iprat-Albut 0.5-3(2.5) mg/3 ml) 3 Ml Ampul.neb, 3 ML INH RTTID Prescribed by: VANESSA MAE on 10/24/20956 Loratadine (Loratadine) 10 Mg Tablet, 10 MG PO BID Prescribed by: VANESSA MAE on 10/24/20956 Losartan Potassium (Losartan Potassium) 100 Mg Tablet, 100 MG PO DAILY, (Reported) Entered as Reported by: ZITA DUDLEY on 08/18/18 1420 Metoclopramide HCl (Reglan) 5 Mg Tablet, 5 MG PO DAILY PRN, (Reported) Entered as Reported by: FELIX HAQ on 10/19/20 09 Montelukast Sodium (Montelukast Sodium) 10 Mg Tablet, 10 MG PO HS Prescribed by: VANESSA MAE on 10/24/20956 Ondansetron (Ondansetron Odt) 4 Mg Tab.rapdis, 4 MG SL Q4H PRN for NAUSEA/VOMITING Prescribed by: HERBERTH DIGGS on 05/21/21 1016 Pantoprazole Sodium (Pantoprazole Sodium) 40 Mg Tablet.dr, 40 MG PO DAILY, (Reported) Entered as Reported by: FELIX HAQ on 10/19/20 0955 Prednisone (Prednisone) 10 Mg Tab.ds.pk, 10 MG PO DAILY Prescribed by: VANESSA MAE on 10/24/20 0957 Sucralfate (Sucralfate) 1 Gm Tablet, 1 GM PO ACHS, (Reported) Entered as Reported by: FELIX HAQ on 10/19/20 0955 Valacyclovir HCl (Valacyclovir) 1,000 Mg Tablet, 1,000 MG PO TID Prescribed by: HERBERTH DIGGS on 05/21/21 0909 Valacyclovir HCl (Valacyclovir) 1,000 Mg Tablet, 1,000 MG PO Q8H Prescribed by: JOHNNY DEAN on 06/17/21 1115 Review of Systems Review of Systems Constitutional: No chills, No fever EENTM: No blurred vision Respiratory: cough, short of breath Cardiovascular: No chest pain Gastrointestinal: No abdominal pain, No diarrhea, No nausea, No vomiting Genitourinary: no symptoms reported Musculoskeletal: no symptoms reported Skin: rash Psychiatric/Neurological: No Symptoms Reported Hematologic/Lymphatic: No Symptoms Reported Immunological/Allergic: no symptoms reported All Other Systems Reviewed Negative Unless Noted: Yes Past Nupvzuq-Yadehg-Fcjfjf Hx Patient Social History Substance use?: No Seasonal Allergies Seasonal Allergies: Yes Past Medical History Surgery/Hospitalization HX: sx: r arm, tonsils, carpal tunnel, pmh: asthma, irregular hr, tick disease Surgeries: Yes (sinus sx, arm bicep sx, hemorrhoidectomy, ) Orthopedic Respiratory: Yes Asthma, COPD Currently Using CPAP: No Cardiac: Yes High Cholesterol, Hypertension Neurological: No Reproductive Disorders: No Genitourinary: No Gastrointestinal: Yes Gastroesophageal Reflux, Hiatal Hernia Musculoskeletal: Yes (Biceps injury) Arthritis, Fractures Endocrine: No HEENT: Yes (chronic sinusitis) Cancer: No Psychosocial: No Integumentary: No Blood Disorders: Yes (Alpha gal red meat allergy) Family Medical History HTN Physical Exam Vital Signs Vital Signs - First Documented 06/17/21 10:15 Temp 36.7 Pulse 74 Resp 17 B/P (MAP) 131/75 (93) O2 Delivery Room Air Capillary Refill : Height, Weight, BMI Height: 5'9.00" Weight: 199lbs. 0.0oz. 90.273543br; 29.00 BMI Method: General Appearance: No Apparent Distress, WD/WN Eyes: Bilateral Eye Normal Inspection, Bilateral Eye PERRL, Bilateral Eye EOMI, Bilateral Eye Other (Some redness to the right eyelid upper and lower and some conjunctival injection) HEENT: PERRL/EOMI, TMs Normal, Normal ENT Inspection, Pharynx Normal Neck: Full Range of Motion, Normal Inspection, Non Tender, Supple Respiratory: Chest Non Tender, Lungs Clear, Normal Breath Sounds, No Accessory Muscle Use, No Respiratory Distress Cardiovascular: Regular Rate, Rhythm, No Edema, Normal Peripheral Pulses Gastrointestinal: Normal Bowel Sounds, Non Tender, Soft; No Distended, No Guarding Back: Normal Inspection, No CVA Tenderness, No Vertebral Tenderness Extremity: Normal Capillary Refill, Normal Inspection, Normal Range of Motion, Non Tender, No Calf Tenderness, No Pedal Edema Neurologic/Psychiatric: Alert, No Motor/Sensory Deficits, Normal Mood/Affect Skin: Normal Color, Warm/Dry Lymphatic: No Adenopathy Progress/Results/Core Measures Suspected Sepsis SIRS Temperature: Pulse: Respiratory Rate: Blood Pressure / Mean: Results/Orders My Orders Orders - JOHNNY DEAN MD Phenytoin Injection (Dilantin Injection) (06/17/21 11:00) Diphenhydramine Tablet (Benadryl Tablet) (06/17/21 11:15) Medications Given in ED Current Medications Medications Dose Ordered Sig/Eliu Route Start Time Stop Time Status Last Admin Dose Admin Diphenhydramine HCl 25 mg ONCE ONCE PO 06/17/21 11:15 06/17/21 11:16 DC 06/17/21 11:21 25 MG Phenytoin Sodium 250 mg ONCE ONCE IV 06/17/21 11:00 06/17/21 11:03 DC 06/17/21 11:21 250 MG Vital Signs/I&O 06/17/21 10:15 Temp 36.7 Pulse 74 Resp 17 B/P (MAP) 131/75 (93) O2 Delivery Room Air Capillary Refill : Progress Note : Progress Note 65-year-old male with above history coming in with a known diagnosis of herpes zoster ophthalmicus now with significant electric-like pain in the V1 distribution. Differential includes postherpetic pain versus trigeminal neuralgia that he could be developing. He tried all the things for herpes treatment, so will get more aggressive with pain regimen for things such as trigeminal neuralgia. Trialed IV phenytoin 250 mg while in the emergency department and will send home with carbamazepine prescription. His pain did improve while in the ER. I told him to follow up with a neurologist to help with this neuropathic pain. He does have follow-up with ophthalmology already. Given he is about to run out of the valacyclovir, and still does not have the antiviral eyedrops, will extend this prescription until he has follow-up again with the criminal investigative agent. Overall I believe he is stable for discharge with outpatient follow-up. He was sent home with strict return precautions. Departure Impression Primary Impression: Herpes zoster ophthalmicus, right eye Disposition: 01 HOME, SELF-CARE Condition: Stable Departure-Patient Inst. Referrals: SELF,VELIA CASTILLO (PCP/Family) Primary Care Physician Patient Instructions: Shingles, Trigeminal Neuralgia Add. Discharge Instructions: You were seen in the emergency department for right-sided facial pain. This certainly is a symptom of some people after a shingles infection. You could also be developing trigeminal neuralgia. Continue taking all the medications you have been prescribed including the gabapentin. You received a medication called phenytoin while in the emergency department which can help with trigeminal neuralgia and nerve pain. We will give something similar as an oral form called carbamazepine. Start with taking 100 mg daily for the next week. Then you will take 100 mg once in the morning and once at night after that. It is possible to continue to slowly go up on the dose of this, and after going up on the dose is typically when it gets more effective. This medication is typically prescribed and managed by a neurologist. I do recommend you follow-up with a neurologist given the pain does seem to be nerve-like in nature, and there are other things they can do. There are procedures for this as well if this continues to be an issue and is not improving with time. Please do follow- up with the criminal investigative agent as herpes zoster ophthalmicus is vision threatening if not treated properly. I will extend your prescription of valacyclovir until you are able to follow-up or receive the antiviral eyedrops. Scripts Carbamazepine (Carbamazepine) 200 Mg Tablet 100 MG PO DAILY for 28 Days, #25 TAB Take half a tablet which is 100 mg daily in the morning for the first week, and then begin taking half a tablet in the morning and half a tablet at night from then on Prov: JOHNNY DEAN MD 06/17/21 Valacyclovir HCl (Valacyclovir) 1,000 Mg Tablet 1000 MG PO Q8H for 7 Days, #21 TAB Prov: JOHNNY DEAN MD 06/17/21 Work/School Note: Work Release Form Date Seen in the Emergency Department: Jun 17, 2021 Return to Work: Jun 19, 2021 Restrictions: No Restrictions JOHNNY DEAN MD Jun 17, 2021 10:33
[2021-06-17] MEDS ORDERED: PHENYTOIN 250 MG/5 ML INJ (DILANTIN) VIAL IV ONE (11:00)
[2021-06-17] MEDS ORDERED: VALA10007 PO (11:15)
[2021-06-17] MEDS ORDERED: diphenhydrAMINE 25 MG TAB (BENADRYL) PO ONE (11:15)
[2021-06-17] MEDS ORDERED: CARB200T6 PO (11:15)
[2021-06-17 12:55] VITALS: BP 132/81
== END 2021-06-17 12:25 | disposition home or self-care (01) ==
LOC: EDUNIT# 09:54 → ER FS 09:56
DX: B02.39 Other herpes zoster eye disease (principal); U07.1 COVID-19; I10 Essential (primary) hypertension; K21.9 Gastro-esophageal reflux disease without esophagitis; J44.9 Chronic obstructive pulmonary disease, unspecified; Z79.51 Long term (current) use of inhaled steroids; Z79.52 Long term (current) use of systemic steroids; Z88.8 Allergy status to other drugs, medicaments and biological substances; Z79.899 Other long term (current) drug therapy; Z73.0 Burn-out
CPT/HCPCS: 99283

== ENCOUNTER 2022-09-14 21:10 | Emergency (ER) | payer MEDICARE, OTHER ==
[~2022-09-14] VITALS: Ht 177 cm; Wt 84.0 kg
[~2022-09-14 21:10] MED LIST changes: +CARB200T6 PO
--- NOTE | 2022-09-14 21:30 | ED Respiratory ---
General Chief Complaint: Exposure Stated Complaint: DIFFICULTY BREATHING Source: patient Exam Limitations: no limitations History of Present Illness Date Seen by Provider: Sep 14, 2022 Time Seen by Provider: 21:10 Initial Comments Patient is a 66-year-old male who presents to the emergency room with a chief complaint of feeling short of breath, congestion in his throat, mild cough, sinus fullness. He states he was using a "buffing wheel" 2 days ago. It was an old wheel owned by his 's uncle. It had not been used in quite a long time. He states it "exploded" in front of him. He inhaled a lot of dust particles and after doing some research realized there was a lot of silicone in the wheel. He states over the past couple of days he has become more and more short of breath. He has developed the sinus congestion and fullness. Denies fevers or chills. States he had a "cold" about 10 days ago that he was able to get over. No smoking history. Denies chest pain, abdominal pain, nausea vomiting. No swelling in his legs. No COVID concerns. Is not COVID vaccinated. He does have to use inhalers, Breztri and ipratropium in a nebulizer. His last treatment was around 4 or 5:00 PM. He states he became worried about his airway and decided to come to the emergency room because he felt like symptoms were getting worse. On arrival the patient appears comfortable, is able to speak in complete sentences, demonstrates no increased work of breathing or respiratory distress. Room air oxygen sats 96%. Timing/Duration: other (2 days) Severity: moderate Prior Episodes/Possible Cause: allergen exposure Associated Symptoms: cough, shortness of breath Allergies and Home Medications Allergies Coded Allergies: metoprolol (Verified Adverse Reaction, Severe, Bradycardia, 06/15/21) Patient has severe bradycardia with beta blockers and needs to avoid this class of medications. Uncoded Allergies: mammal products (Allergy, Severe, 09/14/22) Patient Home Medication List Home Medication List Reviewed: Yes Amoxicillin/Potassium Clav (Augmentin 875-125 Tablet) 1 Each Tablet, 1 EACH PO BID Prescribed by: HERBERTH DIGGS on 05/21/21 0909 Carbamazepine (Carbamazepine) 200 Mg Tablet, 100 MG PO DAILY Prescribed by: JOHNNY DEAN on 06/17/21 1115 Cefdinir (Cefdinir) 300 Mg Capsule, 300 MG PO BID Prescribed by: VANESSA MAE on 10/24/20956 Diphenhydramine HCl (Banophen) 25 Mg Tablet, 25 MG PO HS Prescribed by: VANESSA MAE on 10/24/20956 Docusate Sodium (Colace) 100 Mg Capsule, 1-2 CAP PO DAILY Prescribed by: HERBERTH DIGGS on 05/21/21 09 Fluconazole (Diflucan) 100 Mg Tablet, 100 MG PO DAILY Prescribed by: VANESSA MAE on 10/24/20956 Fluticasone Propionate (Fluticasone Propionate) 16 Gm [place].susp, 0 SPRAY NS DAILY Prescribed by: VANESSA MAE on 10/24/20956 Fluticasone/Salmeterol (Fluticasone-Salmeterol 113-14) 1 Each Aer.pow.ba, 0 EACH IH RTBID Prescribed by: VANESSA MAE on 10/24/20956 Hydrocodone/Acetaminophen (Hydrocodone-Acetamin 5-325 mg) 1 Each Tablet, 1-2 TAB PO Q4H PRN for PAIN-MODERATE (5-7) Prescribed by: HERBERTH DIGGS on 05/21/21 09 Ipratropium/Albuterol Sulfate (Iprat-Albut 0.5-3(2.5) mg/3 ml) 3 Ml Ampul.neb, 3 ML INH RTTID Prescribed by: VANESSA MAE on 10/24/20956 Loratadine (Loratadine) 10 Mg Tablet, 10 MG PO BID Prescribed by: VANESSA MAE on 10/24/20956 Losartan Potassium (Losartan Potassium) 100 Mg Tablet, 100 MG PO DAILY, (Reported) Entered as Reported by: ZITA DULDEY on 08/18/18 1420 Metoclopramide HCl (Reglan) 5 Mg Tablet, 5 MG PO DAILY PRN, (Reported) Entered as Reported by: FELIX HAQ on 10/19/20954 Montelukast Sodium (Montelukast Sodium) 10 Mg Tablet, 10 MG PO HS Prescribed by: VANESSA MAE on 10/24/20956 Ondansetron (Ondansetron Odt) 4 Mg Tab.rapdis, 4 MG SL Q4H PRN for NAUSEA/VOMITING Prescribed by: HERBERTH DIGGS on 05/21/21 1016 Pantoprazole Sodium (Pantoprazole Sodium) 40 Mg Tablet.dr, 40 MG PO DAILY, (Reported) Entered as Reported by: FELIX HAQ on 10/19/20 0955 Prednisone (Prednisone) 10 Mg Tab.ds.pk, 10 MG PO DAILY Prescribed by: VANESSA MAE on 10/24/20 0957 Sucralfate (Sucralfate) 1 Gm Tablet, 1 GM PO ACHS, (Reported) Entered as Reported by: FELIX HAQ on 10/19/20 0955 Valacyclovir HCl (Valacyclovir) 1,000 Mg Tablet, 1,000 MG PO TID Prescribed by: HERBERTH DIGGS on 05/21/21 0909 Valacyclovir HCl (Valacyclovir) 1,000 Mg Tablet, 1,000 MG PO Q8H Prescribed by: JOHNNY DEAN on 06/17/21 1115 Review of Systems Review of Systems Constitutional: see HPI EENTM: nose congestion (sinus congestion) Respiratory: cough, short of breath Cardiovascular: no symptoms reported Gastrointestinal: no symptoms reported Genitourinary: no symptoms reported Musculoskeletal: no symptoms reported Skin: no symptoms reported All Other Systems Reviewed Negative Unless Noted: Yes Past Genmoqw-Dwuwmr-Jrfaam Hx Patient Social History Tobacco Use?: No Substance use?: No Alcohol Use?: No Pt feels they are or have been: No Immunizations Up To Date First/Initial COVID19 Vaccinat: na Seasonal Allergies Seasonal Allergies: Yes Past Medical History Surgery/Hospitalization HX: sx: r arm, tonsils, carpal tunnel, hemorrhoidectomy pmh: asthma, irregular hr, tick disease, copd, htn, gerd, meat allergy Surgeries: Yes (sinus sx, arm bicep sx, hemorrhoidectomy, ) Orthopedic Respiratory: Yes Asthma, COPD Currently Using CPAP: No Cardiac: Yes High Cholesterol, Hypertension Neurological: No Reproductive Disorders: No Genitourinary: No Gastrointestinal: Yes Gastroesophageal Reflux, Hiatal Hernia Musculoskeletal: Yes (Biceps injury) Arthritis, Fractures Endocrine: No HEENT: Yes (chronic sinusitis) Cancer: No Psychosocial: No Integumentary: No Blood Disorders: Yes (Alpha gal red meat allergy) Family Medical History HTN Physical Exam Vital Signs - First Documented 09/14/22 21:14 Temp 36.7 Pulse 72 Resp 16 B/P (MAP) 141/81 (101) Pulse Ox 96 O2 Delivery Room Air Capillary Refill : Height: 5'9.00" Weight: 199lbs. 0.0oz. 90.510365sn; 26.00 BMI Method: General Appearance: WD/WN, no apparent distress Eyes: Bilateral Eye Normal Inspection, Bilateral Eye PERRL, Bilateral Eye EOMI HEENT: pharynx normal Neck: full range of motion, supple, normal inspection Respiratory: no respiratory distress, no accessory muscle use, wheezing (scant expiratory wheeze R>L; diminished throughout. occasional ronchi at the bases bilaterally. RA sats 96%) Cardiovascular: regular rate, rhythm (60-70's) Gastrointestinal: non tender, soft Extremities: normal range of motion, no pedal edema Neurologic/Psychiatric: alert, normal mood/affect, oriented x 3 Skin: normal color, warm/dry Progress/Results/Core Measures Suspected Sepsis SIRS Temperature: Pulse: Respiratory Rate: Blood Pressure / Mean: Results/Orders My Orders Orders - KARI LU MD Chest Pa/Lat (2 View) (09/14/22 21:24) Prednisone Tablet (Deltasone Tablet) (09/14/22 22:15) Vital Signs/I&O 09/14/22 09/14/22 21:14 21:14 Temp 36.7 Pulse 72 Resp 16 B/P (MAP) 141/81 (101) Pulse Ox 96 O2 Delivery Room Air Room Air Capillary Refill : Diagnostic Imaging Diagonstic Imaging: Xray Plain Films/CT/US/NM/MRI: chest Comments chest xray - interpreted by me - no acute findings, infiltrates, effusions Departure Impression Primary Impression: Pneumonitis Disposition: 01 HOME, SELF-CARE Condition: Stable Departure-Patient Inst. Decision time for Depature: 22:16 Referrals: VELIA OLSON MD (PCP/Family) Primary Care Physician Patient Instructions: Pneumonitis Add. Discharge Instructions: Use your Nebulizer every 4-6 hours for the next 2-3 days. Take the prednisone 50mg tablets, once a day (with food) for the next 4 days. If you have any worsening breathing, especially with worsening cough or fever, please return to the Emergency Department for re-evaluation. Please follow up with your primary care physician. Scripts Prednisone (Prednisone) 50 Mg Tab 50 MG PO DAILY, #4 TAB Prov: KARI LU MD 09/14/22 KARI LU MD Sep 14, 2022 21:30
[2022-09-14] MEDS ORDERED: predniSONE 20 MG TAB PO ONE (22:15)
[2022-09-14 22:20] VITALS: BP 134/89
[2022-09-14] MEDS ORDERED: PRD50T PO (22:20)
--- NOTE | 2022-09-15 06:44 | Diagnostic Imaging Report ---
EXAMINATION: Chest 2 view HISTORY: Silicone exposure COMPARISON: 12/19/2020 FINDINGS: There is a 1.1 cm left lung base nodule. No edema or pneumonia. No pleural effusion or pneumothorax. Heart size is normal. There are old right-sided rib fractures. IMPRESSION: 1. Left lung base 1.1 cm nodule possibly a nipple shadow. Chest CT without contrast recommended. Dictated by: Dictated on workstation # [id number]
== END 2022-09-14 22:23 | disposition home or self-care (01) ==
LOC: EDUNIT# 21:10 → ER 21:12
DX: J18.9 Pneumonia, unspecified organism (principal); Z28.310 Unvaccinated for COVID-19
CPT/HCPCS: 71046